=== PATIENT | male | born 1945 | race Caucasian/White ===

== ENCOUNTER → 2016-12-29 | Outpatient (CLI) | payer BC ==
[~2016-12-29] MED LIST: ALL300 PO; DOXA1TAB86 PO; LANS30CA63 PO; LSN20 PO; LSN40 PO; SIMV-151 PO; VGR50 PO
[2016-12-29 12:29] LABS: BLOOD UREA NITROGEN 17 mg/dl (7-18); CARBON DIOXIDE 29 mmol/L (21-32); CHLORIDE 104 mmol/L (98-107); GLUCOSE 91 mg/dl (70-99); POTASSIUM 4.1 mmol/L (3.5-5.1); SODIUM 141 mmol/L (136-145)
[2016-12-29 13:01] LABS: ALKALINE PHOSPHATASE 54 U/L (45-117); HDL CHOLESTEROL 52 mg/dl
[2016-12-29 13:32] LABS: CHOLESTEROL/HDL RATIO 3.4; LDL CHOLESTEROL CALCULATED 101 mg/dl; VERY LOW DENSITY LIPOPROT CALC 24 mg/dl
[2016-12-29 13:34] LABS: ALB/GLOB RATIO 1.3 (0.9-2); AST/SGOT 23 U/L (15-37); TRIGLYCERIDES 119 mg/dl (0-150)
[2016-12-29 13:38] LABS: ALT/SGPT 32 U/L (12-78); BUN/CREATININE RATIO 17.1 (10-20); CALCIUM 9.4 mg/dl (8.5-10.1); CHOLESTEROL 172 mg/dl (0-200)
== END | disposition home or self-care (01) ==
LOC: C.LAB1850 09:48
PROVIDERS: ATTEND Internal Medicine Pulmonary Disease
DX: E78.5 Hyperlipidemia, unspecified (principal); I10 Essential (primary) hypertension; M10.9 Gout, unspecified; M15.9 Polyosteoarthritis, unspecified; K21.0 Gastro-esophageal reflux disease with esophagitis

== ENCOUNTER → 2017-02-17 | Day surgery (SDC) | payer BC ==
[2017-02-16 07:31] VITALS: Ht 175.3 cm; Wt 100.0 kg
[~2017-02-17] VITALS: Ht 175.3 cm; Wt 100.0 kg
[~2017-02-17] MED LIST changes: +LIDOCAINE HCL 2% 2 ML VIAL (20MG/ML) ONE; -LSN20 PO; +PROPOFOL IV EMULSION 10 MG/ML 20 ML VIAL IV ONE; +SODIUM CHLORIDE 0.9% 500ML 500 ML IV ONE
--- NOTE | 2017-02-17 10:53 | Endo History and Physical ---
History & Physical Date of Service: Feb 17, 2017. Chief Complaint: SCREENING FOR COLON CANCER Referring Physician: DR. MOJICA History of Present Illness 72 yo CM who presents for screening colonoscopy. Past Medical History Arthritis, Reflux, Hypertension Past Surgical History Hx Cardiac Surgery: No Hx Internal Defibrillator: No Hx Pacemaker: No Hx Abdominal Surgery: No Hx of Implantable Prosthesis: No Hx Post-Op Nausea and Vomiting: No Hx Cancer Surgery: No Hx Thoracic Surgery: No Hx Orthopedic: Yes (R/L KNEE ARTHROSCOPY, R/L PARTIAL KNEE REPLACEMENT R/L TKA) Hx Urinary Tract Surgery: No Family History None Social History Smoking Status: Never Smoker Hx Substance Use: No Hx Alcohol Use: Yes (A FEW DRINKS A DAY) Allergies Coded Allergies: Sulfa Drugs (Verified Allergy, Severe, RASH, HIVES,SWELLING, 02/17/17) RASH,HIVES,SWELLING Current Medications Reported Home Medications Medications Dose Route/Sig Max Daily Dose Days Date Category Lisinopril 40 Mg Tab 40 Mg PO QAM 02/16/17 Reported Viagra (Sildenafil Citrate) 50 Mg Tab 50 Mg PO UD 02/19/14 Reported Allopurinol 300 Mg Tab 300 Mg PO QAM 02/19/14 Reported Simvastatin 20 Mg Tab 20 Mg PO QAM 02/19/14 Reported Prevacid (Lansoprazole) 30 Mg Cap 30 Mg PO QAM 02/19/14 Reported Doxazosin Mesylate 4 Mg Tab 4 Mg PO QAM 02/19/14 Reported Vital Signs Weight (Kilograms): 100 Height (Feet): 5 Height (Inches): 9 Date Time Temp Pulse Resp B/P (MAP) Pulse Ox O2 Delivery O2 Flow Rate FiO2 02/17/17 10:16 36.5 58 18 191/74 (113) 96 Room Air Physical Exam General Appearance: WD/WN, no apparent distress Respiratory/Chest: Auscultation: breath sounds normal Cardiovascular: Heart Auscultation: RRR Abdomen: Bowel Sounds: normal Inspection & Palpation: soft, non-distended, no tenderness, guarding & rebound Assessment and Plan Assessment: 72 yo CM who presents for screening colonoscopy. Plan: Proceed with colonoscopy
--- NOTE | 2017-02-17 11:30 | GI REPORT ---
Procedure Date: 02/17/2017 11:03 AM THIS REPORT HAS BEEN AMENDED Addendum Number: 1 Addendum Date: 02/17/2017 12:05:36 PM No repeat colonoscopy secondary to patient's age and lack of adenomas. Procedure: Colonoscopy Indications: Screening for colorectal malignant neoplasm Medicines: Monitored Anesthesia Care Complications: No immediate complications. Estimated Blood Loss: Estimated blood loss: none. Procedure: Pre-Anesthesia Assessment: - Prior to the procedure, a History and Physical was performed, and patient medications and allergies were reviewed. The patient's tolerance of previous anesthesia was also reviewed. The risks and benefits of the procedure and the sedation options and risks were discussed with the patient. All questions were answered, and informed consent was obtained. Prior Anticoagulants: The patient has taken no previous anticoagulant or antiplatelet agents. ASA Grade Assessment: II - A patient with mild systemic disease. After reviewing the risks and benefits, the patient was deemed in satisfactory condition to undergo the procedure. After I obtained informed consent, the scope was passed under direct vision. Throughout the procedure, the patient's blood pressure, pulse, and oxygen saturations were monitored continuously. The scope was introduced through the anus and advanced to the terminal ileum. The colonoscopy was performed without difficulty. The patient tolerated the procedure well. The quality of the bowel preparation was good. The terminal ileum, ileocecal valve, appendiceal orifice, and rectum were photographed. Findings: Multiple small-mouthed diverticula were found in the sigmoid colon. Non-bleeding internal hemorrhoids were found during retroflexion. The hemorrhoids were small. Impression: - Diverticulosis in the sigmoid colon. - Non-bleeding internal hemorrhoids. - No specimens collected. Recommendation: - Resume previous diet. - Continue present medications. - Repeat colonoscopy in 10 years for surveillance. - Return to primary care physician as previously scheduled. Aman Mejia Ashu, 02/17/2017 11:29:47 AM This report has been signed electronically. Note Initiated On: 02/17/2017 11:03 AM I attest to the content of the Intraoperative Record and orders documented therein, exceptions below Aman Mejia Ashu, 02/17/2017 12:06:12 PM This report has been signed electronically.
[2017-02-17 12:00] VITALS: BP 145/65; PULSE 49; O2SAT 96
--- NOTE | 2017-02-17 12:10 | Discharge Instructions ---
Endoscopy Patient Instructions Date / Procedure(s) Performed Feb 17, 2017. Colonoscopy Allergy Information Coded Allergies: Sulfa Drugs (Verified Allergy, Severe, RASH, HIVES,SWELLING, 02/17/17) RASH,HIVES,SWELLING Discharge Date / Findings Feb 17, 2017. Diverticulosis Internal hemorrhoids Medication Instructions OK to resume all medications today as prescribed Reported Home Medications Medications Dose Route/Sig Max Daily Dose Days Date Category Lisinopril 40 Mg Tab 40 Mg PO QAM 02/16/17 Reported Viagra (Sildenafil Citrate) 50 Mg Tab 50 Mg PO UD 02/19/14 Reported Allopurinol 300 Mg Tab 300 Mg PO QAM 02/19/14 Reported Simvastatin 20 Mg Tab 20 Mg PO QAM 02/19/14 Reported Prevacid (Lansoprazole) 30 Mg Cap 30 Mg PO QAM 02/19/14 Reported Doxazosin Mesylate 4 Mg Tab 4 Mg PO QAM 02/19/14 Reported Provider Instructions Activity Restrictions - No exercising or heavy lifting for 24 hours. - Do not drink alcohol the day of the procedure. - Do not drive a car or operate machinery until the day after the procedure. - Do not make any important decisions or sign important papers in 24 hours after the procedure. Following Day: - Return to full activity which may include returning to work/school. Diet Start your diet with liquids and light foods (jello, soup, juice, toast). Then eat your usual diet if not nauseated. Treatment For Common After Affects For mild abdominal pain, bloating, or excessive gas: - Rest - Eat lightly - Lie on right side Follow-Up Information Follow-up with DR. MOJICA as scheduled Anesthesia Information What You Should Know You have had a procedure that required some medicine to reduce anxiety and discomfort. This treatment is called moderate sedation. After receiving the treatment, you may be sleepy, but you will be able to breathe on your own. The effects of the treatment may last for several hours. Follow these instructions along with Activity/Diet recommendations noted above: * Do NOT do anything where dizziness or clumsiness would be dangerous. * Rest quietly at home today, then you can be up and about tomorrow. * Have a responsible person stay with you the rest of today. * You may have had an I.V. today. If so, you may take the dressing off later today. Recommendations Call your doctor if: * Trouble breathing * Continuous vomiting for more than 24 hours * Temperature above 101 degrees * Severe abdominal pain or bloating * Pain not relieved by pain medicine ordered * There is increased drainage or redness from any incision * A large amount of rectal bleeding greater than 2-3 tablespoons. (If you had a polyp/s removed or have hemorrhoids, a small amount of blood - from the rectum is to be expected.) * You have any unanswered questions or concerns. IN THE EVENT OF A SERIOUS EMERGENCY, GO TO THE NEAREST EMERGENCY ROOM Your discharge instructions were prepared by provider Aman Wakefield. Patient Instructions Signature Page Elder Rodriguez Patient (or Guardian) Signature/Date: I have read and understand the instructions given to me by my caregivers. Caregiver/RN/Doctor Signature/Date: The above-named patient and/or guardian has received patient instructions on this date. + Original Patient Signature Page (only) stays with chart. Please make copy for patient.
--- NOTE | 2017-02-17 12:31 | Anesthesiology Progress Note ---
Anesthesia Post Op Note Date & Time Feb 17, 2017 at 12:30 Vital Signs Pain Intensity: 0 Vital Signs Past 12 Hours Date Time Temp Pulse Resp B/P (MAP) Pulse Ox O2 Delivery O2 Flow Rate FiO2 02/17/17 12:00 49 18 145/65 (91) 96 Room Air 02/17/17 11:45 50 18 126/62 (83) 96 Room Air 02/17/17 11:35 50 18 96/47 (63) 96 Room Air 02/17/17 11:28 58 18 95/47 (63) 96 Room Air 02/17/17 10:16 36.5 58 18 191/74 (113) 96 Room Air Notes Mental Status: alert / awake / arousable, participated in evaluation Pt Amnestic to Procedure: Yes Nausea / Vomiting: adequately controlled Pain: adequately controlled Airway Patency, RR, SpO2: stable & adequate BP & HR: stable & adequate Hydration State: stable & adequate Anesthetic Complications: no major complications apparent
== END | disposition home or self-care (01) ==
LOC: C.GI 09:59
PROVIDERS: ATTEND Internal Medicine
DX: Z12.11 Encounter for screening for malignant neoplasm of colon (principal); K57.30 Diverticulosis of large intestine without perforation or abscess without bleeding; K64.8 Other hemorrhoids; I10 Essential (primary) hypertension; K21.9 Gastro-esophageal reflux disease without esophagitis; M19.90 Unspecified osteoarthritis, unspecified site; Z79.899 Other long term (current) drug therapy

== ENCOUNTER → 2017-07-01 | Outpatient (CLI) | payer BC ==
[~2017-07-01] MED LIST changes: -LIDOCAINE HCL 2% 2 ML VIAL (20MG/ML) ONE; -PROPOFOL IV EMULSION 10 MG/ML 20 ML VIAL IV ONE; -SODIUM CHLORIDE 0.9% 500ML 500 ML IV ONE
[2017-07-01 09:34] LABS: BASO % 0.2 %; BASO ABS # 0.01 K/uL (0-0.2); COMPLETE YES; EOS % 3.6 %; HEMATOCRIT 42.9 % (42-52); IG% 0.3 %; LYMPH ABS # 1.41 K/uL (1.2-3.4); MEAN CELL VOLUME 95.1 fL (80-100); MEAN CORPUSCULAR HEMOGLOBIN 31.9 pg (25-34); MEAN CORPUSCULAR HGB CONC 33.6 g/dl (32-36); MEAN PLATELET VOLUME 11.1 fL (7.4-10.4); NEUT % 65.9 %; PLATELET COUNT 154 K/uL (130-400); RED BLOOD COUNT 4.51 M/uL (4.7-6.1); WHITE BLOOD COUNT 6.41 K/uL (4.8-10.8)
[2017-07-01 10:10] LABS: ALT/SGPT 32 U/L (12-78); AST/SGOT 22 U/L (15-37); BLOOD UREA NITROGEN 17 mg/dl (7-18); BUN/CREATININE RATIO 17.4 (10-20); CALCIUM 9.2 mg/dl (8.5-10.1); CARBON DIOXIDE 29 mmol/L (21-32); CHLORIDE 104 mmol/L (98-107); CREATININE 0.95 mg/dl (0.60-1.40); GLUCOSE 91 mg/dl (70-99); POTASSIUM 3.9 mmol/L (3.5-5.1); SODIUM 137 mmol/L (136-145)
[2017-07-01 10:21] LABS: ALB/GLOB RATIO 1.2 (0.9-2); ALKALINE PHOSPHATASE 60 U/L (45-117); CHOLESTEROL 175 mg/dl (0-200); CHOLESTEROL/HDL RATIO 3.2; HDL CHOLESTEROL 54 mg/dl; LDL CHOLESTEROL CALCULATED 91 mg/dl; TRIGLYCERIDES 149 mg/dl (0-150); VERY LOW DENSITY LIPOPROT CALC 30 mg/dl
== END | disposition home or self-care (01) ==
LOC: C.LAB1850 08:47
PROVIDERS: ATTEND Internal Medicine Pulmonary Disease
DX: E78.5 Hyperlipidemia, unspecified (principal); I10 Essential (primary) hypertension; M10.9 Gout, unspecified; K43.9 Ventral hernia without obstruction or gangrene; N52.9 Male erectile dysfunction, unspecified

== ENCOUNTER → 2017-12-29 | Outpatient (CLI) | payer BC ==
[2017-12-29 09:52] LABS: ALBUMIN 3.9 gm/dl (3.4-5.0); ALT/SGPT 27 U/L (12-78); AST/SGOT 22 U/L (15-37); BLOOD UREA NITROGEN 21 mg/dl (7-18); CALCIUM 9.1 mg/dl (8.5-10.1); CARBON DIOXIDE 29 mmol/L (21-32); CHOLESTEROL 156 mg/dl (0-200); CREATININE 0.96 mg/dl (0.60-1.40); GLUCOSE 96 mg/dl (70-99); POTASSIUM 3.9 mmol/L (3.5-5.1); SODIUM 138 mmol/L (136-145)
[2017-12-29 09:53] LABS: ALKALINE PHOSPHATASE 61 U/L (45-117); LDL CHOLESTEROL CALCULATED 81 mg/dl; TOTAL PROTEIN 6.9 gm/dl (6.4-8.2)
== END | disposition home or self-care (01) ==
LOC: C.LAB1850 07:32
PROVIDERS: ATTEND Internal Medicine Pulmonary Disease
DX: E78.5 Hyperlipidemia, unspecified (principal); I10 Essential (primary) hypertension; K21.0 Gastro-esophageal reflux disease with esophagitis; R05 Cough; J30.9 Allergic rhinitis, unspecified

== ENCOUNTER 2021-07-30 07:38 | Inpatient (IN) ==
--- NOTE | 2021-07-30 07:50 | Emergency Department Note ---
Impression & Plan Congestive heart failure, New onset left bundle branch block (LBBB) ED Provider Note CHIEF COMPLAINT: Shortness of breath HISTORY OF PRESENT ILLNESS: This 76-year-old male patient presents to the emergency department with complaints of shortness of breath that began suddenly around 9 PM last night when he was watching football game. Patient states he had a sudden onset of aggressive coughing that precluded him from lying down. He had significant difficulty coughing and could not get it under control. Patient did actually end up having a syncopal episode, but denies injuring himself. He denies any chest pain or palpitations prior to the episode. Patient denies any fevers, chills, chest pain. He has had no nausea or vomiting. He is vaccinated against Covid. He states his legs have been swelling recently. Patient states his years ago. He has been suffering from recurrent and chronic left knee pain for which she has had multiple surgeries. He states he has gained 25 pounds due to inability to exercise. REVIEW OF SYSTEMS: A review of systems was performed with positives and pertinent negatives listed in the history of present illness. 10 systems were reviewed and are otherwise negative. ALLERGIES: see below MEDICATIONS: see below PMH: see below SOCIAL HISTORY: see below DDx: Reactive airway disease, pneumonia, pneumothorax, COPD, CHF, infections, cardiac ischemia, pulmonary embolism, musculoskeletal, gastrointestinal, as well as other pathologies. PHYSICAL EXAM: Vital signs reviewed. General: Older appearing 76-year-old male in no significant distress. HEENT: No scleral icterus, PERRLA, neck supple. Atraumatic. Cardiovascular: Bradycardic rate and rhythm, no extra sounds. Distant heart tones Pulmonary: Clear to auscultation bilaterally, normal work of breathing sitting up in bed Abdomen: Soft, obese, nontender, nondistended, positive bowel sounds. Musculoskeletal: Atraumatic, moderate 1-2+ pitting peripheral edema. Neurologic: Patient awake alert and oriented x 3, speech is clear Skin: Warm, dry, no rash EMERGENCY DEPARTMENT COURSE/MDM: This patient was evaluated and appeared to be in no significant distress. IV access was obtained and laboratory work was drawn. The patient was placed on director of cardiac cath lab and noted to be in a sinus bradycardia. EKG reveals a left bundle branch block and most recent previous on record was in 2018. Left bundle branch block is new. Troponin is detectable but within normal limits. Chest x-ray is concerning for congestive heart failure. Patient's magnesium was repleted with 2 g of IV magnesium sulfate. He was given 40 mg of IV Lasix and the case was discussed with the hospitalist service for admission and further management. Patient was aware of plan and agreed. MONITORING: An order for cardiac monitoring was placed and the patient is noted to be in a bradycardic rhythm at 53 beats per minute. RADIOLOGY: see below EKG: Sinus bradycardia with a first-degree AV block at 58 bpm. Left axis deviation, left bundle branch block. Prolonged QTC of 490. 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, left Trochanteric bursitis Ulcer of esophagus with bleeding Surgical History H/O colonoscopy (~01/2017) History of bilateral knee replacement Hx of total knee arthroplasty S/P tonsillectomy Family History Family/Other Coronary heart disease Mother Hearing loss Hypertension Cancer Father Cardiac disorder Hypertension Social History Smoking Status: Former smoker Hx Alcohol Use: Yes Alcohol type: beer, wine and hard liquor Hx Substance Use: No Preferred Language: Luxembourger Communication Ability: Effective Psychology Assistant Required: No Beliefs That Will Affect Care: None marital status: / Current Living Situation: Alone current occupational status: retired How many Children do You have: 2 Feels Safe at Home: Yes Assistive Devices: Glasses Allergies Allergies Allergy/AdvReac Type Severity Reaction Status Date / Time Sulfa (Sulfonamide Allergy Severe RASH, Verified 07/30/21 09:06 Antibiotics) HIVES,SWELLING Home Meds Previous Rx's Medication Instructions Recorded allopurinol 300 mg tablet 300 mg PO DAILY #90 tab 07/15/21 doxazosin 4 mg tablet 4 mg PO DAILY #90 tab 07/15/21 lansoprazole 30 mg capsule,delayed 30 mg PO DAILY #90 cap 07/15/21 release olmesartan 40 mg tablet (Benicar) 40 mg PO DAILY #90 tab 07/15/21 simvastatin 20 mg tablet 20 mg PO DAILY #90 tab 07/15/21 furosemide 40 mg tablet (Lasix) 40 mg PO DAILY #30 tab 07/31/21 potassium chloride 10 mEq 10 meq PO DAILY #30 cap 07/31/21 capsule,extended release Results & Data (ED) Vital Signs Vital Signs - 24 hr 07/30/21 07:39 Temperature 37.7 C H Temperature Source Skin Pulse Rate 84 Respiratory Rate 20 Blood Pressure 186/81 H Blood Pressure Mean 116 Pulse Oximetry 91 Oxygen Delivery Method Room Air Sepsis Recent Fever Within 48 Hours No Sepsis New/Unexplained Change in Mental Status No Sepsis Action Taken by Nursing No Action Required Home Medications Current Medication List: was personally reviewed by me Laboratory Data Attestation: I reviewed the patient's lab results. Result diagrams: 07/31/21 06:26 07/31/21 06:26 Lab Results 07/30/21 07/30/21 07/30/21 Range/Units 08:55 08:55 08:55 WBC 9.47 (4.8-10.8) K/uL RBC 4.58 L (4.7-6.1) M/uL Hgb 14.3 (14.0-18.0) g/dL Hct 42.7 (42-52) % MCV 93.2 (80-100) fL MCH 31.2 (25-34) pg MCHC 33.5 (32-36) g/dL RDW Std Deviation 45.6 (36.4-46.3) fL RDW Coeff of Jeana 13.5 (11.5-14.5) % Plt Count 129 L (130-400) K/uL MPV 12.1 H (7.4-10.4) fL Immature Gran % (Auto) 0.2 % Neut % (Auto) 81.5 % Lymph % (Auto) 7.4 % [place] % (Auto) 10.3 % Eos % (Auto) 0.5 % Baso % (Auto) 0.1 % Neut # (Auto) 7.71 H (1.4-6.5) K/uL Lymph # (Auto) 0.70 L (1.2-3.4) K/uL [place] # (Auto) 0.98 H (0.11-0.59) K/uL Eos # (Auto) 0.05 (0-0.5) K/uL Baso # (Auto) 0.01 (0-0.2) K/uL Immature Gran # (Auto) 0.02 (0.00-0.02) K/uL Sodium 139 (136-145) mmol/L Potassium 3.6 (3.5-5.1) mmol/L Chloride 107 (98-107) mmol/L Carbon Dioxide 23 (21-32) mmol/L Anion Gap 9.0 (3-11) BUN 15 (7-18) mg/dl Creatinine 0.86 (0.6-1.4) mg/dl Est Cr Clr Drug Dosing Not Reportable Est GFR ( Amer) 96.9 ml/min Est GFR (Non-Af Amer) 83.6 ml/min BUN/Creatinine Ratio 17.0 (10-20) Glucose 112 H (70-99) mg/dl Lactate 1.4 (0.4-2.0) mmol/L Calcium 8.6 (8.5-10.1) mg/dl Magnesium 1.6 L (1.8-2.4) mg/dl Total Bilirubin 1.5 H (0.2-1) mg/dl AST 17 (15-37) U/L ALT 24 (12-78) Alkaline Phosphatase 67 (45-117) U/L Troponin I 0.028 (0-0.045) ng/ml Total Protein 6.8 (6.4-8.2) gm/dl Albumin 3.6 (3.4-5.0) gm/dl Globulin 3.2 (2.5-4.0) gm/dl Albumin/Globulin Ratio 1.1 (0.9-2) Urine Color Urine Appearance (Clear) Urine pH (4.5-7.5) Ur Specific [place] (1.000-1.030) Urine Protein (Negative) Urine Glucose (UA) (Negative) Urine Ketones (Negative) Urine Blood (Negative) Urine Nitrite (Negative) Urine Bilirubin (Negative) Urine Urobilinogen (Negative) Ur Leukocyte Esterase (Negative) Urine WBC (Auto) (0-5) /hpf Urine RBC (Auto) (0-4) /hpf U Hyaline Cast (Auto) (0-5) /lpf U Epithel Cells (Auto) (0-5) /lpf Urine Bacteria (Auto) (Negative) 07/30/21 Range/Units 08:58 WBC (4.8-10.8) K/uL RBC (4.7-6.1) M/uL Hgb (14.0-18.0) g/dL Hct (42-52) % MCV (80-100) fL MCH (25-34) pg MCHC (32-36) g/dL RDW Std Deviation (36.4-46.3) fL RDW Coeff of Jeana (11.5-14.5) % Plt Count (130-400) K/uL MPV (7.4-10.4) fL Immature Gran % (Auto) % Neut % (Auto) % Lymph % (Auto) % [place] % (Auto) % Eos % (Auto) % Baso % (Auto) % Neut # (Auto) (1.4-6.5) K/uL Lymph # (Auto) (1.2-3.4) K/uL [place] # (Auto) (0.11-0.59) K/uL Eos # (Auto) (0-0.5) K/uL Baso # (Auto) (0-0.2) K/uL Immature Gran # (Auto) (0.00-0.02) K/uL Sodium (136-145) mmol/L Potassium (3.5-5.1) mmol/L Chloride (98-107) mmol/L Carbon Dioxide (21-32) mmol/L Anion Gap (3-11) BUN (7-18) mg/dl Creatinine (0.6-1.4) mg/dl Est Cr Clr Drug Dosing Est GFR ( Amer) ml/min Est GFR (Non-Af Amer) ml/min BUN/Creatinine Ratio (10-20) Glucose (70-99) mg/dl Lactate (0.4-2.0) mmol/L Calcium (8.5-10.1) mg/dl Magnesium (1.8-2.4) mg/dl Total Bilirubin (0.2-1) mg/dl AST (15-37) U/L ALT (12-78) Alkaline Phosphatase (45-117) U/L Troponin I (0-0.045) ng/ml Total Protein (6.4-8.2) gm/dl Albumin (3.4-5.0) gm/dl Globulin (2.5-4.0) gm/dl Albumin/Globulin Ratio (0.9-2) Urine Color Yellow Urine Appearance Clear (Clear) Urine pH 5.0 (4.5-7.5) Ur Specific [place] 1.020 (1.000-1.030) Urine Protein 2+ H (Negative) Urine Glucose (UA) Negative (Negative) Urine Ketones Negative (Negative) Urine Blood Negative (Negative) Urine Nitrite Negative (Negative) Urine Bilirubin Negative (Negative) Urine Urobilinogen Negative (Negative) Ur Leukocyte Esterase Negative (Negative) Urine WBC (Auto) 0 (0-5) /hpf Urine RBC (Auto) 0-4 (0-4) /hpf U Hyaline Cast (Auto) 0 (0-5) /lpf U Epithel Cells (Auto) 0-5 (0-5) /lpf Urine Bacteria (Auto) Negative (Negative) Administered Medications Discontinued Medications Allopurinol (Allopurinol 300 Mg Tab) 300 mg PO DAILY [facility] Stop: 08/30/21 08:59 Last Admin: 08/01/21 09:56 Dose: 300 mg Documented by: [id number] Admin: 07/31/21 08:02 Dose: 300 mg Documented by: [id number] Aspirin (Aspirin 81 Mg Chew) 81 mg PO DAILY [facility] Stop: 08/29/21 13:59 Last Admin: 07/30/21 15:22 Dose: 81 mg Documented by: [id number] Aspirin (Aspirin 81 Mg Ectab) 81 mg PO QAM [facility] Stop: 08/30/21 08:59 Last Admin: 08/01/21 09:56 Dose: 81 mg Documented by: [id number] Admin: 07/31/21 08:02 Dose: 81 mg Documented by: [id number] Carvedilol (Carvedilol 3.125 Mg Tab) 3.125 mg PO BID [facility] Stop: 08/29/21 20:59 Last Admin: 07/31/21 20:30 Dose: Not Given Documented by: [id number] Admin: 07/31/21 08:02 Dose: 3.125 mg Documented by: [id number] Admin: 07/30/21 20:30 Dose: 3.125 mg Documented by: [id number] Doxazosin Mesylate (Doxazosin Mesylate 4 Mg Tab) 4 mg PO DAILY [facility] Stop: 08/30/21 08:59 Last Admin: 08/01/21 09:55 Dose: 4 mg Documented by: [id number] Admin: 07/31/21 08:02 Dose: 4 mg Documented by: [id number] Enoxaparin Sodium (Enoxaparin Inj 40 Mg/0.4 Ml Syr) 40 mg SQ QPM [facility] Stop: 08/29/21 20:59 Last Admin: 07/31/21 20:30 Dose: 40 mg Documented by: [id number] Admin: 07/30/21 20:30 Dose: 40 mg Documented by: [id number] Furosemide (Furosemide 40 Mg/4 Ml Vial) 40 mg IV ONE ONE Stop: 07/30/21 11:17 Last Admin: 07/30/21 11:55 Dose: 40 mg Documented by: [id number] Furosemide (Furosemide 40 Mg/4 Ml Vial) 40 mg IV [id number] [facility] Stop: 08/29/21 16:59 Last Admin: 08/01/21 09:55 Dose: 40 mg Documented by: [id number] Admin: 07/31/21 17:54 Dose: 40 mg Documented by: [id number] Admin: 07/31/21 08:03 Dose: 40 mg Documented by: [id number] Admin: 07/30/21 17:27 Dose: 40 mg Documented by: [id number] Hydrochlorothiazide (Hydrochlorothiazide 25 Mg Tab) 25 mg PO QAM [facility] Stop: 08/31/21 08:59 Last Admin: 08/01/21 09:55 Dose: 25 mg Documented by: [id number] Magnesium Sulfate/Dextrose (Magnesium Sulfate / D5w) 1 gm in 100 mls @ 100 mls/hr IV Q1H [facility] Stop: 07/30/21 12:09 Last Infusion: 07/30/21 12:55 Dose: 0 mls/hr Documented by: [id number] Admin: 07/30/21 11:55 Dose: 100 mls/hr Documented by: [id number] Infusion: 07/30/21 11:45 Dose: 100 mls/hr Documented by: [id number] Admin: 07/30/21 10:45 Dose: 100 mls/hr Documented by: [id number] Ioversol (Optiray 320 125ml) 120 ml IV ONCE ONE Stop: 07/30/21 10:17 Last Admin: 07/30/21 10:10 Dose: 120 ml Documented by: [id number] Menthol (Cough Drop (Sugar Free) Len 24 Len/1 Box) 1 len BUCCAL NOW STA Stop: 07/31/21 17:49 Last Admin: 07/31/21 17:54 Dose: 1 len Documented by: [id number] Olmesartan (Olmesartan Medoxomil 40 Mg Tab) 40 mg PO DAILY [facility] Stop: 08/30/21 08:59 Last Admin: 08/01/21 09:55 Dose: 40 mg Documented by: [id number] Admin: 07/31/21 08:03 Dose: 40 mg Documented by: [id number] Pantoprazole Sodium (Pantoprazole 40 Mg Tab) 40 mg PO DAILY [facility]; Protocol Stop: 08/30/21 08:59 Last Admin: 08/01/21 09:54 Dose: 40 mg Documented by: [id number] Admin: 07/31/21 08:02 Dose: 40 mg Documented by: [id number] Simvastatin (Simvastatin 20 Mg Tab) 20 mg PO DAILY [facility] Stop: 08/30/21 08:59 Last Admin: 08/01/21 09:54 Dose: 20 mg Documented by: [id number] Admin: 07/31/21 08:01 Dose: 20 mg Documented by: [id number] Imaging Data Radiologist's Impression: Chest X-Ray 07/30/21 08:06 XR chest 1V portable CLINICAL HISTORY: Dyspnea. COMPARISON STUDY: 01/16/2018 TECHNIQUE: 1 view of the chest FINDINGS: Single frontal view of the chest demonstrates the cardiomediastinal silhouette to be within normal limits. Patchy interstitial and alveolar opacities are present bilaterally. The findings are most characteristic of a viral type pneumonitis. Covid 19 pneumonia should be excluded. There is also blunting left costophrenic angle characteristic of a small left pleural effusion. There is no evidence for vascular congestion. There is no acute osseous pathology. IMPRESSION: Patchy interstitial and alveolar opacities bilaterally characteristic of a viral type pneumonitis and probable early Covid 19 pneumonia. There is also evidence for small left pleural effusion. ACT 112: Negative or not required by law. Electronically signed by: Cliff Thomas M.D. 07/30/2021 8:28 AM Chest CTA 07/30/21 09:05 CT angio chest PE protocol CT DOSE: 722.77 mGy.cm HISTORY: 76 years-old Male with PE- syncope. Acute cough with shortness of breath TECHNIQUE: Multiple CTA images of the chest were obtained after the intravenous administration of 120 ml Optiray. Coronal and sagittal MIPS were obtained from the axial data set and were submitted for review. All measurements were obtained according to NASCET criteria. A dose lowering technique was utilized adhering to the principles of ALARA. COMPARISON: Chest radiograph of same day FINDINGS: CTA: Moderate cardiomegaly. No pericardial effusion. Extensive coronary artery calcifications. Moderate atherosclerosis of the thoracic aorta without aneurysm or dissection. Patency of the imaged great vessels. Slightly dilated main pulmonary artery measures 3.8 cm which may represent pulmonary artery hypertension. The segmental and subsegmental pulmonary arterial branches are suboptimally evaluated secondary to respiratory motion artifact and contrast bolus timing. CT CHEST: No thyroid nodule. Mild mediastinal and hilar adenopathy with lymph nodes roxanna uring up to 10 mm. Small pleural effusions. Respiratory motion artifact limits evaluation of the lungs. Intralobular septal thickening with mild intermixed groundglass opacities suggestive of atelectasis. Mild bilateral bronchial wall thickening. The central airways are patent. No acute process of the imaged upper abdomen. Hepatic steatosis. The spleen appears mildly enlarged. Unremarkable soft tissues. Degenerative changes of the shoulders and spine. Atrophy of the right greater than left rotator cuff musculature. IMPRESSION: 1. No pulmonary emboli. 2. Cardiomegaly with pulmonary edema and small layering pleural effusions. 3. Mild bibasilar groundglass densities suggest atelectasis. 4. Suggested pulmonary artery hypertension. 5. Mild mediastinal and hilar adenopathy is likely reactive. ACT 112: Negative or not required by law. The above report was generated using voice recognition software. It may contain grammatical, syntax or spelling errors. Electronically signed by: Keshav Gordon M.D. 07/30/2021 10:24 AM Blood Pressure Blood Pressure Findings: Elevated blood pressure Blood Pressure Disposition: further management by hospitalist Discharge Plan Visit Data Chief Complaint: Respiratory Problems Stated Complaint: HAVING HARD TIME BREATHING/COUGH/PASSED OUT ED Provider: Natty Long Discharge Problem: Congestive heart failure, New onset left bundle branch block (LBBB) Patient Disposition: Admitted As Inpatient Discharge Instructions Interventions: ED Discharge Assessment Last Done: 07/30/21 12:50 Discharge Problem: Congestive heart failure Qualifiers: Heart failure type: unspecified Heart failure chronicity: acute on chronic Qualified Code(s): I50.9 - Heart failure, unspecified
--- NOTE | 2021-07-30 08:30 | XRay Report ---
XR chest 1V portable CLINICAL HISTORY: Dyspnea. COMPARISON STUDY: 01/16/2018 TECHNIQUE: 1 view of the chest FINDINGS: Single frontal view of the chest demonstrates the cardiomediastinal silhouette to be within normal li mits. Patchy interstitial and alveolar opacities are present bilaterally. The findings are most tasneem cteristic of a viral type pneumonitis. Covid 19 pneumonia should be excluded. There is also blunting left costophrenic angle characteristic of a small left pleural effusion. There is no evidence for vas cular congestion. There is no acute osseous pathology. IMPRESSION: Patchy interstitial and alveolar opacities bilaterally characteristic of a viral type pne umonitis and probable early Covid 19 pneumonia. There is also evidence for small left pleural effusio n. ACT 112: Negative or not required by law. Electronically signed by: Cliff Thomas M.D. 07/30/2021 8:28 AM
[2021-07-30 09:05] LABS: Influenza A virus by PCR Negative (Neg); Influenza B virus by PCR Negative (Neg); RSV by PCR Negative (Neg); SARS CoV2 RNA(COVID-19) InHosp NEGATIVE (Negative)
[2021-07-30 09:26] LABS: Appearance Urine Clear (Clear); Bacteria Urine Automated Negative (Negative); Bilirubin Urine Negative (Negative); Blood Urine Negative (Negative); Cast Urine Automated 0 /lpf (0-5); Color Urine Yellow; Epithelial Cell Urine Auto 0-5 /lpf (0-5); Glucose Urine UA Negative (Negative); Ketones Urine Negative (Negative); Leukocyte Esterase Urine Negative (Negative); Nitrite Urine Negative (Negative); Protein Urine 2+ (Negative); RBC Urine Automated 0-4 /hpf (0-4); Urobilinogen Urine Negative (Negative); WBC Urine Automated 0 /hpf (0-5)
[2021-07-30 09:40] LABS: Alanine Aminotransferase 24 (12-78); Albumin Level 3.6 gm/dl (3.4-5.0); Aspartate Aminotransferase 17 U/L (15-37); Blood Urea Nitrogen 15 mg/dl (7-18); Calcium 8.6 mg/dl (8.5-10.1); Carbon Dioxide 23 mmol/L (21-32); Chloride 107 mmol/L (98-107); Est GFR (African American) 96.9 ml/min; Est GFR (Non-African American) 83.6 ml/min; Glucose 112 mg/dl (70-99); Magnesium 1.6 mg/dl (1.8-2.4); Potassium 3.6 mmol/L (3.5-5.1); Sodium 139 mmol/L (136-145)
[2021-07-30 09:45] LABS: Albumin Globulin Ratio 1.1 (0.9-2); Alkaline Phosphatase 67 U/L (45-117); Bilirubin,Total 1.5 mg/dl (0.2-1); Globulin 3.2 gm/dl (2.5-4.0); Total Protein 6.8 gm/dl (6.4-8.2); Troponin I 0.028 ng/ml (0-0.045)
[2021-07-30] MEDS ORDERED: OPTIRAY 320 125ml IV ONE (10:16)
--- NOTE | 2021-07-30 10:26 | CT Scan Report ---
CT angio chest PE protocol CT DOSE: 722.77 mGy.cm HISTORY: 76 years-old Male with PE- syncope. Acute cough with shortness of breath TECHNIQUE: Multiple CTA images of the chest were obtained after the intravenous administration of 120 ml Optiray. Coronal and sagittal MIPS were obtained from the axial data set and were submitted for review. All measurements were obtained according to NASCET criteria. A dose lowering technique was u tilized adhering to the principles of ALARA. COMPARISON: Chest radiograph of same day FINDINGS: CTA: Moderate cardiomegaly. No pericardial effusion. Extensive coronary artery calcifications. Moderate at herosclerosis of the thoracic aorta without aneurysm or dissection. Patency of the imaged great vesse ls. Slightly dilated main pulmonary artery measures 3.8 cm which may represent pulmonary artery hyper tension. The segmental and subsegmental pulmonary arterial branches are suboptimally evaluated second kevin to respiratory motion artifact and contrast bolus timing. CT CHEST: No thyroid nodule. Mild mediastinal and hilar adenopathy with lymph nodes measuring up to 10 mm. Smal l pleural effusions. Respiratory motion artifact limits evaluation of the lungs. Intralobular septal thickening with mild intermixed groundglass opacities suggestive of atelectasis. Mild bilateral bronc hial wall thickening. The central airways are patent. No acute process of the imaged upper abdomen. Hepatic steatosis. The spleen appears mildly enlarged. Unremarkable soft tissues. Degenerative changes of the shoulders and spine. Atrophy of the right grea ter than left rotator cuff musculature. IMPRESSION: 1. No pulmonary emboli. 2. Cardiomegaly with pulmonary edema and small layering pleural effusions. 3. Mild bibasilar groundglass densities suggest atelectasis. 4. Suggested pulmonary artery hypertension. 5. Mild mediastinal and hilar adenopathy is likely reactive. ACT 112: Negative or not required by law. The above report was generated using voice recognition software. It may contain grammatical, syntax o r spelling errors. Electronically signed by: Keshav Gordon M.D. 07/30/2021 10:24 AM
--- NOTE | 2021-07-30 10:34 | Electrocardiogram Report ---
Test Reason : Blood Pressure : / mmHG Vent. Rate : 074 BPM Atrial Rate : 074 BPM P-R Int : 226 ms QRS Dur : 154 ms QT Int : 434 ms P-R-T Axes : 029 -45 108 degrees QTc Int : 481 ms Sinus rhythm with 1st degree A-V block with occasional Premature ventricular complexes Left bundle branch block Abnormal ECG When compared with ECG of 16-JAN-2018 19:06, Premature ventricular complexes are now Present Left bundle branch block is now Present Confirmed by Alfie Reveles ([id number]) on 07/30/2021 10:34:27 AM Referred By: Confirmed By:Alfie Reveles
[2021-07-30] MEDS: MAGNESIUM SULFATE / D5W 1 GM/100 ML BAG IV SCH ×2 (10:45→11:55)
[2021-07-30 10:53] LABS: Hematocrit (blood only) 42.7 % (42-52); Hemoglobin 14.3 g/dL (14.0-18.0); Mean Corpuscular Hemoglobin 31.2 pg (25-34); Mean Corpuscular Hgb Conc 33.5 g/dL (32-36); Mean Corpuscular Volume 93.2 fL (80-100); Mean Platelet Volume 12.1 fL (7.4-10.4); Platelet Count 129 K/uL (130-400); RDW Coefficient of Variation 13.5 % (11.5-14.5); RDW Standard Deviation 45.6 fL (36.4-46.3); Red Blood Count 4.58 M/uL (4.7-6.1); White Blood Count 9.47 K/uL (4.8-10.8)
[2021-07-30 11:07] LABS: Basophils # (auto) 0.01 K/uL (0-0.2); Basophils % (auto) 0.1 %; Eosinophils # (auto) 0.05 K/uL (0-0.5); Eosinophils % (auto) 0.5 %; Immature Granulocytes # (auto) 0.02 K/uL (0.00-0.02); Immature Granulocytes % (auto) 0.2 %; Lymphocytes % (auto) 7.4 %; Monocytes # (auto) 0.98 K/uL (0.11-0.59); Monocytes % (auto) 10.3 %; Neutrophils # (auto) 7.71 K/uL (1.4-6.5); Neutrophils % (auto) 81.5 %
[2021-07-30] MEDS ORDERED: FUROSEMIDE 40 MG/4 ML VIAL IV ONE (11:16)
--- NOTE | 2021-07-30 11:54 | History & Physical Report ---
Date of Service July 30, 2021 Assessment & Plan (1) Shortness of breath: Plan: Patient will be admitted to the hospital proceeding as follows: I suspect by the patient's clinical presentation, imaging, and labs that he is suffering from congestive heart failure: We will trend the patient's cardiac enzymes We will check an echocardiogram at this time. I discussed with the cardiopulmonary lab and they will perform this test within the next few minutes. Due to the patient's new left bundle branch block if there is a marked abnormality on his echocardiogram we will enlist the help of cardiology to determine if cardiac catheterization is needed I have counseled the patient on the importance of a low-sodium diet We will place the patient on antiplatelet therapy in the form of aspirin We will maintain the patient on his home dose of olmesartan 40 mg daily We will provide diuresis with Lasix 40 mg IV twice daily for the present time We will hold the patient's beta-vahid for the present time We will maintain him on statin therapy. He does take Zocor 20 mg daily We will utilize Lovenox and SCDs for DVT prevention I have discussed with the patient CODE STATUS and he notes in the event of cardiopulmonary rest he would not want mechanical ventilation or chest compressions performed. He also notes that in the event of respiratory deterioration he would not want mechanical ventilation use. He will therefore be a level 5 DO NOT RESUSCITATE Additional recommendations will be forthcoming based on pending studies and the patient's clinical course as it unfolds as well as recommendations by cardiology (2) Acute heart failure with preserved ejection fraction: (3) Obstructive sleep apnea: (4) Left bundle branch block: (5) HTN (hypertension): History of Present Illness Chief Complaint: Shortness of breath Primary Care Provider: Khoi Patel MD Is a 76-year-old male who presented to the emergency department secondary to shortness of breath. Patient says the shortness of breath began last night in the preceding several days he was feeling finally his normal self. Patient says he has had a slight cough but denies any fevers, shakes, chills. He does report orthopnea and clearly states that his breathing is improved when he sits upright. He has not exhibited any chest pain. He denies any abdominal pain but does have diarrhea. He denies any nausea or vomiting. He has not lost his sense of taste or smell. The patient notes that he has gained approximately 25 pounds over the past year and reports some worsening lower extremity edema. Patient also notes to some worsening dyspnea on exertion over the past several weeks most notably over the past 2 weeks. He says that previously he could walk easily 3 miles on a flat surface but has been unable to do so partly due to an arthritic knee but also due to shortness of breath. I question the patient out salt intake and he does admit to eating foods that contain high amount of salt. Patient is a remote smoker having quit in 1992 but he did smoke up to 1 to 2 packs of cigarettes per day for 43 years. Patient says that he did have a stress test that was reportedly okay without signs of ischemia in 2009 prior to undergoing a knee replacement. Patient does report he had a brother who suffered from coronary artery disease but this was diagnosed in his 70s. He also had a father who of a ruptured aneurysm. Patient does report that he has received his Covid vaccine and also received his Covid booster in June of this year. In the emergency department the patient did have labs and imaging which and family reviewed. A chest x-ray showed the patient had patchy interstitial infiltrates. He also underwent a CT scan of the chest that was negative for pulmonary emboli but the patient was noted to have cardiomegaly as well as pulmonary edema with small bilateral pleural effusions. Labs including CBC were white blood cell count, hemoglobin, hematocrit, were within the normal range. His platelet count was 129,000. Chemistry profile showed sodium, potassium, BUN, and creatinine were all within normal range. Patient did have a low magnesium level of 1.6. There were no significant elevation of LFTs other than a slight elevation of his total bilirubin at 1.5. Urinalysis was not indicative of infection. Patient did have serologies for RSV, influenza, and Covid checked which were all negative. An EKG was performed that showed a new left bundle branch block. The treating clinician emergency department has supplemented the patient's oxygen and had given some intravenous Lasix. At the time of interview the patient is resting comfortably in bed and he was in no distress or discomfort. Allergies Allergy/AdvReac Type Severity Reaction Status Date / Time Sulfa (Sulfonamide Allergy Severe RASH, Verified 07/30/21 09:06 Antibiotics) HIVES,SWELLING Home Medications Medication Instructions Recorded Confirmed Type allopurinol 300 mg tablet 300 mg PO DAILY #90 tab 07/15/21 07/30/21 Rx atenolol 25 mg tablet 25 mg PO DAILY #90 tab 07/15/21 07/30/21 Rx doxazosin 4 mg tablet 4 mg PO DAILY #90 tab 07/15/21 07/30/21 Rx lansoprazole 30 mg capsule,delayed 30 mg PO DAILY #90 cap 07/15/21 07/30/21 Rx release olmesartan 40 mg tablet (Benicar) 40 mg PO DAILY #90 tab 07/15/21 07/30/21 Rx simvastatin 20 mg tablet 20 mg PO DAILY #90 tab 07/15/21 07/30/21 Rx Past Med/Surg History Medical History Acute kidney injury Clostridium difficile infection Esophageal stricture Hemangioendothelioma of liver Olecranon bursitis Painful total knee replacement, left Trochanteric bursitis Ulcer of esophagus with bleeding Surgical History H/O colonoscopy (~01/2017) History of bilateral knee replacement Hx of total knee arthroplasty S/P tonsillectomy Family History Family/Other Coronary heart disease Mother Hearing loss Hypertension Cancer Father Cardiac disorder Hypertension Social History Smoking Status: Former smoker Hx Alcohol Use: Yes Alcohol type: beer, wine and hard liquor Hx Substance Use: No Preferred Language: Faroese Communication Ability: Effective Admeasurer Required: No Beliefs That Will Affect Care: None marital status: / Current Living Situation: Alone current occupational status: retired Other Information That Helps Us Care for You: No Feels Safe at Home: Yes Safety Concerns: Feels Safe At This Time Assistive Devices: Glasses Review of Systems Constitutional: no fever and no chills Eyes: no diplopia Ear, Nose, Mouth, Throat: no ear pain Respiratory: + cough, + dyspnea and + dyspnea on exertion Cardiovascular: + dyspnea on exertion and + orthopnea; no chest pain, no palpitations, no syncope and no claudication Gastrointestinal: + diarrhea/loose stools; no abdominal pain, no nausea and no vomiting Genitourinary: no dysuria Integumentary: no rash Neurologic: no localized weakness Physical Exam Constitutional: well developed and well nourished; no acute distress Eyes: PERRL, conjunctivae normal, anicteric sclerae ENMT: Ears: no hearing impairment and no external ear abnormality Neck: trachea midline Respiratory: Breath sounds are present bilaterally. There is no wheezing. Patient is to use accessory muscles. The patient did have faint crackles noted at the bases bilaterally. Cardiovascular: Rate/Rhythm: regular rate and regular rhythm 1-2+ lower extremity edema noted bilaterally Gastrointestinal (Abdomen): Soft, nontender, nondistended Musculoskeletal: No calf tenderness Skin: no rashes Neurologic: moves all extremities Psychiatric: A+Ox3, euthymic affect Results & Data Results & Data ([facility]) Vital Signs (Past 12 Hours) Vital Signs Temp Pulse Resp Resp Resp BP BP 07/30/21 10:32 37.3 C 114/71 07/30/21 10:29 07/30/21 08:55 28 H 20 07/30/21 07:39 37.7 C H 84 20 186/81 H Pulse Ox Pulse Ox Pulse Ox 07/30/21 10:32 93 07/30/21 10:29 93 07/30/21 08:55 88 L 92 07/30/21 07:39 91 Diagnostic Findings XR chest 1V portable CLINICAL HISTORY: Dyspnea. COMPARISON STUDY: 01/16/2018 TECHNIQUE: 1 view of the chest FINDINGS: Single frontal view of the chest demonstrates the cardiomediastinal silhouette to be within normal limits. Patchy interstitial and alveolar opacities are present bilaterally. The findings are most characteristic of a viral type pneumonitis. Covid 19 pneumonia should be excluded. There is also blunting left costophrenic angle characteristic of a small left pleural effusion. There is no evidence for vascular congestion. There is no acute osseous pathology. IMPRESSION: Patchy interstitial and alveolar opacities bilaterally characteristic of a viral type pneumonitis and probable early Covid 19 pneumonia. There is also evidence for small left pleural effusion. CT angio chest PE protocol CT DOSE: 722.77 mGy.cm HISTORY: 76 years-old Male with PE- syncope. Acute cough with shortness of breath TECHNIQUE: Multiple CTA images of the chest were obtained after the intravenous administration of 120 ml Optiray. Coronal and sagittal MIPS were obtained from the axial data set and were submitted for review. All measurements were obtained according to NASCET criteria. A dose lowering technique was utilized adhering to the principles of ALARA. COMPARISON: Chest radiograph of same day FINDINGS: CTA: Moderate cardiomegaly. No pericardial effusion. Extensive coronary artery ca lcifications. Moderate atherosclerosis of the thoracic aorta without aneurysm or dissection. Patency of the imaged great vessels. Slightly dilated main pulmonary artery measures 3.8 cm which may represent pulmonary artery hypertension. The segmental and subsegmental pulmonary arterial branches are suboptimally evaluated secondary to respiratory motion artifact and contrast bolus timing. CT CHEST: No thyroid nodule. Mild mediastinal and hilar adenopathy with lymph nodes measuring up to 10 mm. Small pleural effusions. Respiratory motion artifact limits evaluation of the lungs. Intralobular septal thickening with mild intermixed groundglass opacities suggestive of atelectasis. Mild bilateral bronchial wall thickening. The central airways are patent. No acute process of the imaged upper abdomen. Hepatic steatosis. The spleen appears mildly enlarged. Unremarkable soft tissues. Degenerative changes of the shoulders and spine. Atrophy of the right greater than left rotator cuff musculature. IMPRESSION: 1. No pulmonary emboli. 2. Cardiomegaly with pulmonary edema and small layering pleural effusions. 3. Mild bibasilar groundglass densities suggest atelectasis. 4. Suggested pulmonary artery hypertension. 5. Mild mediastinal and hilar adenopathy is likely reactive. Medications Administered ER Medications Given: Mg sulphate 2g IV Furosemide 40mg IV ECG Indication: SOB/dyspnea Rate (beats per minute): 74 Rhythm: normal sinus Findings: + 1st degree AV block, + LBBB and + PVC Comparison ECG Date: from (January 16, 2018) Change: the following changes noted (LBBB is new from 2018, although noted problem in EHR diagnosed in 2019) Code Status & VTE Plan VTE Prophylaxis Plan VTE Prophylaxis will be ordered: Yes Supervising Physician Co-Signing Physician Notes I personally saw and examined the patient. I verified all herrmann points and agree with GO Gutierrez with the following exceptions and/or additions: 76 yo male with progressively worsening shortness of breath and weight gain over many months. Patient seen on the chen after admission and already noticing improvement in his orthopnea, leg swelling and shortness of breath on exertion O/E No JVD, HS1+2, RRR, no murmurs, no respiratory distress, fine crackles bibasal, Abdo SNT, 1+ LE edema to knees equal b/l EKG - "new" LBBB compared to prior EKG in 2018, however LBBB is charted in EHR in 2019 therefore suspect this is not new and no new onset chest pain to be concerned about ACS A/P Acute heart failure with preserved ejection fraction - Lasix 40mg IV BID, TTE, consult cardiology, switch atenolol -> carvedilol tonight given elevated BP throughout the day, uptitrate as able. Continue on olmesartan. Discussed low salt diet in some detail which appears to be his main issue. Possible CAD - given LBBB in setting of acute CHF suspect some underlying CAD, Will defer ischemic imaging to cardiology but recommend starting a daily aspirin at this time PG Care Time/CCT Total # of Minutes Spent Total Time Spent with Patient: Total time spent is greater than 50% in coordination of care (as documented) at patient's floor/unit and/or counseling patient: Coding Level of Care Code 80021 Initial Inpt Care Lvl 3 Diagnoses Shortness of breath R06.02 Acute heart failure with preserved ejection fraction I50.31 Obstructive sleep apnea G47.33 Left bundle branch block I44.7 HTN (hypertension) I10
--- NOTE | 2021-07-30 13:03 | XCELERA ---
[id number] \\[id number]
[2021-07-30] MEDS ORDERED: ACETAMINOPHEN 325 MG TAB PO PRN (13:15)
[2021-07-30] MEDS ORDERED: ONDANSETRON INJ 2 MG/ML 2 ML VIAL IV PRN (13:15)
[2021-07-30] MEDS ORDERED: POLYETHYLENE (MIRALAX) 17 GM PACK PO PRN (13:15)
[2021-07-30] MEDS ORDERED: NITROGLYCERIN SL 0.4 MG/TAB TAB SL PRN (13:15)
[2021-07-30] MEDS ORDERED: MAGNESIUM HYDROXIDE SUSP 30 ML UDC PO PRN (13:15)
[2021-07-30] MEDS ORDERED: ALUMINUM/MAGNESIUM SUSP 30 ML UDC PO PRN (13:15)
[2021-07-30 13:34] LABS: Troponin I 0.033 ng/ml (0-0.045)
[2021-07-30] MEDS ORDERED: ASPIRIN 81 MG CHEW PO SCH (14:00)
--- NOTE | 2021-07-30 14:41 | Cardiology Consultation ---
Date of Consultation July 30, 2021 Assessment & Plan (1) Acute on chronic diastolic CHF (congestive heart failure): -echocardiogram notes normal systolic function with moderate LVH. -decompensation likely related to dietary indiscretion with salt. -agree with intravenous Lasix. -would continue diuretics until BUN and creatinine increase. -daily PRP. (2) Left bundle branch block: -new when compared with a tracing done in December 2017. -fortunately, echocardiogram notes normal systolic function. -will likely proceed with a Lexiscan stress test as an outpatient to rule out myocardial ischemia. (3) HTN (hypertension): -elevation likely related to decompensated CHF. (4) Dyslipidemia: -continue simvastatin. History of Present Illness Attending Physician: Sukumar Fallon MD History of Present Illness Mr. Moore is a 76-year-old male admitted earlier today in decompensated CHF. This consultation was ordered to assist in his cardiac management. The patient was in his usual state of health until 2-3 weeks prior to presentation. He began to note progressive exertional dyspnea along with lower extremity edema. Over the last 2 evenings, the patient noted significant orthopnea and had to sleep in a reclining chair. He began to note shortness of breath at rest, therefore, presented for further care. On arrival here, the patient's workup included a chest x-ray which noted card iomegaly and pulmonary edema. This was confirmed on his CT scan of the chest. His EKG noted sinus rhythm with a complete left bundle branch block. This was new when compared with a tracing done on January 16, 2018. The patient was given intravenous Lasix and is now experiencing a brisk diuresis. The patient was able to [place] approximately 2 weeks ago. At no time has he experienced exertional angina pectoris. He had a normal stress test approximately 10 years ago. The patient admits to poor compliance with a low-salt diet. He explains that he salts any meet prior to cooking at. He is also liberal with salt on most of his foods. The patient has received all of his COVID vaccinations. His medications reviewed in detail. Currently, patient is resting comfortably in bed without complaints. Past medical and surgical history 1. Hypertension 2. Moderate LVH 3. Mild mitral regurgitation 4. Hypercholesterolemia 5. Diastolic CHF-July 2021 6. GERD 7. Esophageal stricture 8. History of esophageal ulcer 9. Liver hemangioendothelioma 10. Diverticulitis 11. Obstructive sleep apnea 12. DJD 13. Bilateral TKR 14. Tonsillectomy Social history , lives alone Quit tobacco use in 1992, 43 pack year history Occasional alcohol Family history Father from ruptured abdominal aneurysm Review of systems A 10 review systems was negative except that described above. Allergies Allergy/AdvReac Type Severity Reaction Status Date / Time Sulfa (Sulfonamide Allergy Severe RASH, Verified 07/30/21 09:06 Antibiotics) HIVES,SWELLING Home Medications Medication Instructions Recorded Confirmed Type allopurinol 300 mg tablet 300 mg PO DAILY #90 tab 07/15/21 07/30/21 Rx atenolol 25 mg tablet 25 mg PO DAILY #90 tab 07/15/21 07/30/21 Rx doxazosin 4 mg tablet 4 mg PO DAILY #90 tab 07/15/21 07/30/21 Rx lansoprazole 30 mg capsule,delayed 30 mg PO DAILY #90 cap 07/15/21 07/30/21 Rx release olmesartan 40 mg tablet (Benicar) 40 mg PO DAILY #90 tab 07/15/21 07/30/21 Rx simvastatin 20 mg tablet 20 mg PO DAILY #90 tab 07/15/21 07/30/21 Rx Patient History Medical History Acute kidney injury Clostridium difficile infection Esophageal stricture Hemangioendothelioma of liver Olecranon bursitis Painful total knee replacement, left Trochanteric bursitis Ulcer of esophagus with bleeding Surgical History H/O colonoscopy (~01/2017) History of bilateral knee replacement Hx of total knee arthroplasty S/P tonsillectomy Family History Family/Other Coronary heart disease Mother Hearing loss Hypertension Cancer Father Cardiac disorder Hypertension Social History Smoking Status: Former smoker Hx Alcohol Use: Yes Alcohol type: beer, wine and hard liquor Hx Substance Use: No Preferred Language: Kyrgyz Communication Ability: Effective Remedial Reading Teacher Required: No Beliefs That Will Affect Care: None marital status: / Current Living Situation: Alone current occupational status: retired Other Information That Helps Us Care for You: No Feels Safe at Home: Yes Safety Concerns: Feels Safe At This Time Assistive Devices: Glasses Physical Exam Physical Exam: In general this is an obese white male in no acute distress. HEENT exam is negative. Neck is supple with full carotid upstrokes. There are no carotid bruits. Jugular venous pressure is flat at 90. There is no thyromegaly. Cardiovascular exam reveals a regular rhythm with a normal S1-S2. A prominent S4 is noted. No murmurs. Lungs are clear without rales, rhonchi, or wheezes. Abdomen is obese without bruits. Extremities reveal intact radial artery pulses bilaterally. Trace to 1+ pretibial edema is noted. Results & Data ([facility]) Vital Signs (Past 12 Hours) Vital Signs Temp Pulse Pulse Resp Resp Resp BP 07/30/21 13:16 37.1 C 67 24 07/30/21 12:50 184/89 H 07/30/21 11:58 68 18 07/30/21 10:32 37.3 C 07/30/21 10:29 07/30/21 08:55 28 H 20 07/30/21 07:39 37.7 C H 84 20 186/81 H BP Pulse Ox Pulse Ox Pulse Ox 07/30/21 13:16 181/80 H 92 07/30/21 12:50 93 07/30/21 11:58 190/92 H 94 07/30/21 10:32 114/71 93 07/30/21 10:29 93 07/30/21 08:55 88 L 92 07/30/21 07:39 91 Laboratory Results CBC notes hemoglobin 14.3, hematocrit 42.7, white count 9.47, and platelet count 535883. Electrolytes note a sodium of 139, potassium 3.6, chloride 107, bicarb 23, BUN 15, creatinine 0.86, and glucose of 112. Magnesium level is low at 1.6. Initial troponin was 0.028 with a follow-up value of 0.033. BNP is mildly elevated at 2675. Diagnostic Findings EKG notes normal sinus rhythm with first-degree AV block and a complete left bundle branch block. Chest x-ray notes cardiomegaly and pulmonary edema. Echocardiogram notes normal left ventricular systolic function with ejection fraction 55-60%. There is moderate LVH and mild mitral regurgitation. CT scan of the chest showed no pulmonary emboli but evidence of cardiomegaly and pulmonary edema. PG Care Time/CCT Total # of Minutes Spent Total Time Spent with Patient: Total time spent is greater than 50% in coordination of care (as documented) at patient's floor/unit and/or counseling patient: Coding Level of Care Code 76578 Initial Inpt Care Lvl 3 Diagnoses Acute on chronic diastolic CHF (congestive heart failure) I50.33 Left bundle branch block I44.7 HTN (hypertension) I10 Dyslipidemia E78.5
[2021-07-30] MEDS: FUROSEMIDE 40 MG/4 ML VIAL IV SCH (17:27)
[2021-07-30] MEDS: ENOXAPARIN INJ 40 MG/0.4 ML SYR SQ SCH (20:30)
[2021-07-30] MEDS: carvediloL 3.125 MG TAB PO SCH (20:30)
[2021-07-31 06:50] LABS: Basophils # (auto) 0.01 K/uL (0-0.2); Basophils % (auto) 0.1 %; Eosinophils # (auto) 0.14 K/uL (0-0.5); Eosinophils % (auto) 2.1 %; Hematocrit (blood only) 41.9 % (42-52); Hemoglobin 13.9 g/dL (14.0-18.0); Immature Granulocytes # (auto) 0.01 K/uL (0.00-0.02); Immature Granulocytes % (auto) 0.1 %; Lymphocytes # (auto) 1.09 K/uL (1.2-3.4); Lymphocytes % (auto) 16.1 %; Mean Corpuscular Hemoglobin 31.7 pg (25-34); Mean Corpuscular Hgb Conc 33.2 g/dL (32-36); Mean Corpuscular Volume 95.4 fL (80-100); Mean Platelet Volume 11.6 fL (7.4-10.4); Monocytes # (auto) 0.98 K/uL (0.11-0.59); Monocytes % (auto) 14.4 %; Neutrophils # (auto) 4.56 K/uL (1.4-6.5); Neutrophils % (auto) 67.2 %; Platelet Count 138 K/uL (130-400); RDW Coefficient of Variation 13.7 % (11.5-14.5); Red Blood Count 4.39 M/uL (4.7-6.1); White Blood Count 6.79 K/uL (4.8-10.8)
[2021-07-31 07:23] LABS: Calcium 9.2 mg/dl (8.5-10.1); Creatinine Clr Calc Pharmacy 64.8 ml/min; Est GFR (African American) 72.3 ml/min; Est GFR (Non-African American) 62.4 ml/min; Magnesium 2.3 mg/dl (1.8-2.4); Potassium 3.4 mmol/L (3.5-5.1)
[2021-07-31] MEDS: SIMVASTATIN 20 MG TAB PO SCH (08:01)
[2021-07-31] MEDS: PANTOprazole 40 MG TAB PO SCH (08:02)
[2021-07-31] MEDS: ASPIRIN 81 MG ECTAB PO SCH (08:02)
[2021-07-31] MEDS: allopurinoL 300 MG TAB PO SCH (08:02)
[2021-07-31] MEDS: DOXAZosin MESYLATE 4 MG TAB PO SCH (08:02)
[2021-07-31] MEDS: carvediloL 3.125 MG TAB PO SCH ×2 (08:02→20:30)
[2021-07-31] MEDS: FUROSEMIDE 40 MG/4 ML VIAL IV SCH ×2 (08:03→17:54)
[2021-07-31] MEDS: OLMESARTAN MEDOXOMIL 40 MG TAB PO SCH (08:03)
[2021-07-31] MEDS ORDERED: OLMESARTAN MEDOXOMIL 40 MG TAB PO SCH (09:00)
[2021-07-31] MEDS ORDERED: DOXAZosin MESYLATE 4 MG TAB PO SCH (09:00)
--- NOTE | 2021-07-31 10:54 | Cardiology Progress Note ---
Date of Service July 31, 2021 Assessment & Plan (1) Acute on chronic diastolic CHF (congestive heart failure): Plan: -normal systolic function with moderate LVH. -decompensation secondary to dietary indiscretion with salt. -improving with intravenous Lasix. -would continue diuretics until BUN and creatinine increase. -daily PRP. (2) Left bundle branch block: Plan: -new when compared with a tracing done in December 2017. -echocardiogram notes normal systolic function. -Lexiscan stress test as an outpatient to rule out myocardial ischemia. (3) HTN (hypertension): Plan: -likely related to decompensated CHF at time of presentation. (4) Dyslipidemia: Plan: -continue simvastatin. Admission and Anticipated Discharge Date Admission Date: July 30, 2021 Subjective The patient is resting comfortably at the bedside without complaints of chest pain or dyspnea. Feels dramatically improved compared with admission. Physical Exam Physical Exam: In general this is an obese white male in no acute distress. HEENT exam is negative. Neck is supple with full carotid upstrokes. There are no carotid bruits. No JVD. There is no thyromegaly. Cardiovascular exam reveals a regular rhythm with a normal S1-S2. A prominent S4 is noted. No murmurs. Lungs are clear without rales, rhonchi, or wheezes. Abdomen is obese without bruits. Extremities reveal intact radial artery pulses bilaterally. Trace to 1+ pretibial edema is noted. Results & Data ([facility]) Vital Signs (Past 12 Hours) Vital Signs Temp Pulse Pulse Resp BP BP Pulse Ox 07/31/21 07:49 55 L 07/31/21 03:27 36.7 C 48 L 18 169/78 H 96 07/30/21 23:24 37 C 53 L 18 162/71 H 91 Diagnostic Findings monitoring specialist is benign. PG Care Time/CCT Total # of Minutes Spent Total Time Spent with Patient: Total time spent is greater than 50% in coordination of care (as documented) at patient's floor/unit and/or counseling patient: Coding Level of Care Code 27792 Subseq Hosp Care Lvl 3 Diagnoses Acute on chronic diastolic CHF (congestive heart failure) I50.33 Left bundle branch block I44.7 HTN (hypertension) I10 Dyslipidemia E78.5
--- NOTE | 2021-07-31 12:56 | Discharge Summary ---
Date of Service July 31, 2021 Admission HPI Per Admitting Provider Is a 76-year-old male who presented to the emergency department secondary to shortness of breath. Patient says the shortness of breath began last night in the preceding several days he was feeling finally his normal self. Patient says he has had a slight cough but denies any fevers, shakes, chills. He does report orthopnea and clearly states that his breathing is improved when he sits upright. He has not exhibited any chest pain. He denies any abdominal pain but does have diarrhea. He denies any nausea or vomiting. He has not lost his sense of taste or smell. The patient notes that he has gained approximately 25 pounds over the past year and reports some worsening lower extremity edema. Patient also notes to some worsening dyspnea on exertion over the past several weeks most notably over the past 2 weeks. He says that previously he could walk easily 3 miles on a flat surface but has been unable to do so partly due to an arthritic knee but also due to shortness of breath. I question the patient out salt intake and he does admit to eating foods that contain high amount of salt. Patient is a remote smoker having quit in 1992 but he did smoke up to 1 to 2 packs of cigarettes per day for 43 years. Patient says that he did have a stress test that was reportedly okay without signs of ischemia in 2009 prior to undergoing a knee replacement. Patient does report he had a brother who suffere d from coronary artery disease but this was diagnosed in his 70s. He also had a father who of a ruptured aneurysm. Patient does report that he has received his Covid vaccine and also received his Covid booster in June of this year. In the emergency department the patient did have labs and imaging which and family reviewed. A chest x-ray showed the patient had patchy interstitial infil trates. He also underwent a CT scan of the chest that was negative for pulmonary emboli but the patient was noted to have cardiomegaly as well as pulmonary edema with small bilateral pleural effusions. Labs including CBC were white blood cell count, hemoglobin, hematocrit, were within the normal range. His platelet count was 129,000. Chemistry profile showed sodium, potassium, BUN, and creatinine were all within normal range. Patient did have a low magnesium level of 1.6. There were no significant elevation of LFTs other than a slight elevation of his total bilirubin at 1.5. Urinalysis was not indicative of infection. Patient did have serologies for RSV, influenza, and Covid checked which were all negative. An EKG was performed that showed a new left bundle branch block. The treating clinician emergency department has supplemented the patient's oxygen and had given some intravenous Lasix. At the time of interview the patient is resting comfortably in bed and he was in no distress or discomfort. Principal Diagnosis CHF exacerbation Discharge Data Allergies Allergy/AdvReac Type Severity Reaction Status Date / Time Sulfa (Sulfonamide Allergy Severe RASH, Verified 07/30/21 09:06 Antibiotics) HIVES,SWELLING Consultations 07/30/21 11:26 ED Decision to Admit Stat 07/30/21 13:15 Consult Cardiology Routine Ordered Studies 07/30/21 09:05 CT angio chest PE protocol Stat Hospital Course (1) Shortness of breath: Patient will be admitted to the hospital proceeding as follows: I suspect by the patient's clinical presentation, imaging, and labs that he is suffering from congestive heart failure: We will trend the patient's cardiac enzymes We will check an echocardiogram at this time. I discussed with the cardiopulmonary lab and they will perform this test within the next few minutes. Due to the patient's new left bundle branch block if there is a marked abnormality on his echocardiogram we will enlist the help of cardiology to determine if cardiac catheterization is needed I have counseled the patient on the importance of a low-sodium diet We will place the patient on antiplatelet therapy in the form of aspirin We will maintain the patient on his home dose of olmesartan 40 mg daily We will provide diuresis with Lasix 40 mg IV twice daily for the present time We will hold the patient's beta-vahid for the present time We will maintain him on statin therapy. He does take Zocor 20 mg daily We will utilize Lovenox and SCDs for DVT prevention I have discussed with the patient CODE STATUS and he notes in the event of cardiopulmonary rest he would not want mechanical ventilation or chest compressions performed. He also notes that in the event of respiratory deterioration he would not want mechanical ventilation use. He will therefore be a level 5 DO NOT RESUSCITATE Additional recommendations will be forthcoming based on pending studies and the patient's clinical course as it unfolds as well as recommendations by cardiology patient was seen by cardiology while in hospital He expressed a willingness to be discharge, citing improved SOB (2) Acute heart failure with preserved ejection fraction: His shortness of breath improved after diuresis, he made good urine (3) Obstructive sleep apnea: (4) Left bundle branch block: Follow up with cardiology for outpatient lexiscan. There was no wall motion abnormality on ECHO (5) HTN (hypertension): Total Time Total Time Spent Total Time Spent (In Minutes): 35 min Discharge Plan Discharge Items Patient Disposition: Home - Home Health Services Reason For Visit: CHF Discharge Diagnosis: CHF exacerbation Activity: Resume your previous activity Non-emergency contact: Primary Care Provider Call non-emergency contact if: you have any medication questions and your symptoms worsen Follow-up/Referrals: Khoi Patel MD [Primary Care Provider] - Diet: Heart Healthy Addtl Attending Provider Instructions: Please make appointment to follow up with 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 assembler 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 for outpatient lexiscan Pending Studies at Discharge: No Stand-Alone Forms: My [facility], Smoking Cessation Medications and DC Order Prescriptions: New furosemide [Lasix] 40 mg tablet 40 mg PO DAILY Qty: 30 RF: 0 potassium chloride 10 mEq capsule, extended release 10 meq PO DAILY Qty: 30 RF: 0 Continued allopurinol 300 mg tablet 300 mg PO DAILY Qty: 90 RF: 3 doxazosin 4 mg tablet 4 mg PO DAILY Qty: 90 RF: 3 lansoprazole 30 mg capsule,delayed release(DR/EC) 30 mg PO DAILY Qty: 90 RF: 3 olmesartan [Benicar] 40 mg tablet 40 mg PO DAILY Qty: 90 RF: 3 simvastatin 20 mg tablet 20 mg PO DAILY Qty: 90 RF: 3 atenolol 25 mg tablet 25 mg PO DAILY Qty: 90 RF: 3 Discharge Orders: Discharge Order (Routine); Ordered 07/31/21 Ordered By: Robyn Walsh Admission Data Admit Date/Time: 07/30/21 11:45 Attending Provider: Robyn Walsh Admit Provider: Sukumar Fallon Primary Care Provider: Khoi Patel Other Providers: Sukumar Fallon ; Alfie Reveles Coding Level of Care Code D/C DAY MANAGEMENT >30 MINS Diagnoses Shortness of breath R06.02 Acute heart failure with preserved ejection fraction I50.31 Obstructive sleep apnea G47.33 Left bundle branch block I44.7 HTN (hypertension) I10
--- NOTE | 2021-07-31 13:21 | Hospitalist Progress Note ---
Date of Service July 31, 2021 Assessment & Plan (1) Shortness of breath: Plan: Most likely due to CHF exacerbation SOB is much improved today following diuresis (2) Acute heart failure with preserved ejection fraction: Plan: Presents with SOB Started on diuresis with lasix 40mg daily making good urine 2 D ECHO showed preserved EF monitor I/O, daily weight Appreciate cardiology recs (3) Bradycardia: Plan: HR in the 40's patient on Coreg 3.125 mg BID Cardiology on consult (4) Obstructive sleep apnea: (5) Left bundle branch block: Plan: Follow up with cardiology for outpatient lexiscan. There was no wall motion abnormality on ECHO (6) HTN (hypertension): Plan: BP 156/77 continue home meds add HCTZ Admission and Anticipated Discharge Date Admission Date: July 30, 2021 Subjective Patient says shortness of breath is much improved Review of Systems Review of Systems: All systems reviewed are negative, apart from the ones contained in the history. Physical Exam Physical Exam: The patient is awake, alert and oriented 3, well developed and well nourished, normocephalic and atraumatic, lying in bed and in no acute distress. HEENT--PERRL, EOMI, mucous membranes and oropharynx mildly dry Neck--supple. No JVD. No bruits. Thyroid normal, trachea midline, no adenopathy. Heart--normal S1 and S2. No murmurs, rubs or gallops. Lungs--clear bilaterally, no respiratory distress, no accessory muscle use. Abdomen--normal bowel sounds and soft. Mild epigastric and left sided abdominal pain Extremities--no cyanosis or clubbing. No edema. Dermatologic--normal skin turgor, normal color, no abnormal lymph nodes, no rash. Neurologic--cranial nerves II through XII grossly intact. Rheumatologic--normal range of motion. Psychiatric--normal affect. Results & Data Results & Data ([facility]) Vital Signs (Past 12 Hours) Vital Signs Temp Pulse Pulse Resp BP BP Pulse Ox 07/31/21 11:48 98.1 F 52 L 16 156/77 H 92 07/31/21 07:49 55 L 07/31/21 03:27 98.1 F 48 L 18 169/78 H 96 PG Care Time/CCT Total # of Minutes Spent Total Time Spent with Patient: Total time spent is greater than 50% in coordination of care (as documented) at patient's floor/unit and/or counseling patient: Coding Level of Care Code 61170 Subseq Hosp Care Lvl 2 Diagnoses Shortness of breath R06.02 Acute heart failure with preserved ejection fraction I50.31 Obstructive sleep apnea G47.33 Left bundle branch block I44.7 HTN (hypertension) I10 Bradycardia R00.1
--- NOTE | 2021-07-31 15:54 | Electrocardiogram Report ---
Test Reason : Blood Pressure : / mmHG Vent. Rate : 050 BPM Atrial Rate : 050 BPM P-R Int : 230 ms QRS Dur : 150 ms QT Int : 530 ms P-R-T Axes : 055 -54 103 degrees QTc Int : 483 ms Sinus bradycardia with 1st degree A-V block Left axis deviation Left bundle branch block Abnormal ECG When compared with ECG of 30-JUL-2021 08:01, Premature ventricular complexes are no longer Present Vent. rate has decreased BY 24 BPM Confirmed by Alfie Reveles ([id number]) on 07/31/2021 3:53:56 PM Referred By: REFERRED SELF Confirmed By:Alfie Reveles
[2021-07-31] MEDS ORDERED: COUGH DROP (SUGAR FREE) LOZ 24 LOZ/1 BOX BUCCAL STA (17:48)
[2021-07-31] MEDS: ENOXAPARIN INJ 40 MG/0.4 ML SYR SQ SCH (20:30)
[2021-08-01] MEDS ORDERED: hydroCHLOROthiazide 25 MG TAB PO SCH (09:00)
[2021-08-01] MEDS: SIMVASTATIN 20 MG TAB PO SCH (09:54)
[2021-08-01] MEDS: PANTOprazole 40 MG TAB PO SCH (09:54)
[2021-08-01] MEDS: OLMESARTAN MEDOXOMIL 40 MG TAB PO SCH (09:55)
[2021-08-01] MEDS: FUROSEMIDE 40 MG/4 ML VIAL IV SCH (09:55)
[2021-08-01] MEDS: DOXAZosin MESYLATE 4 MG TAB PO SCH (09:55)
[2021-08-01] MEDS: allopurinoL 300 MG TAB PO SCH (09:56)
[2021-08-01] MEDS: ASPIRIN 81 MG ECTAB PO SCH (09:56)
--- NOTE | 2021-08-01 14:34 | Hospitalist Progress Note ---
Date of Service August 01, 2021 Assessment & Plan (1) Shortness of breath: Plan: Most likely due to acute CHF exacerbation SOB is much improved today following diuresis Will continue to monitor i/O, daily weights (2) Acute heart failure with preserved ejection fraction: Plan: Presents with SOB Started on diuresis with lasix 40mg daily making good urine 2 D ECHO showed preserved EF monitor I/O, daily weight Appreciate cardiology recs (3) Bradycardia: Plan: HR improved to 55 today EKG showed sinus rythm with RBBB and 1st degree AV block patient on Coreg 3.125 mg BID Cardiology on consult (4) Obstructive sleep apnea: 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 There was no wall motion abnormality on ECHO (6) HTN (hypertension): Plan: BP 159/69 continue home meds added HCTZ Admission and Anticipated Discharge Date Admission Date: July 30, 2021 Subjective Patient says shortness of breath is much improved, denies chest pain Review of Systems Review of Systems: All systems reviewed are negative, apart from the ones contained in the history. Physical Exam Physical Exam: The patient is awake, alert and oriented 3, well developed and well nourished, normocephalic and atraumatic, lying in bed and in no acute distress. HEENT--PERRL, EOMI, mucous membranes and oropharynx mildly dry Neck--supple. No JVD. No bruits. Thyroid normal, trachea midline, no adenopathy. Heart--normal S1 and S2. No murmurs, rubs or gallops. Lungs--clear bilaterally, no respiratory distress, no accessory muscle use. Abdomen--normal bowel sounds and soft. Mild epigastric and left sided abdominal pain Extremities--no cyanosis or clubbing. No edema. Dermatologic--normal skin turgor, normal color, no abnormal lymph nodes, no rash. Neurologic--cranial nerves II through XII grossly intact. Rheumatologic--normal range of motion. Psychiatric--normal affect. Results & Data Results & Data ([facility]) Vital Signs (Past 12 Hours) Vital Signs Temp Pulse Pulse Resp BP BP Pulse Ox 08/01/21 12:09 98.6 F 62 16 159/69 H 99 08/01/21 08:20 97.7 F 59 L 16 169/73 H 96 08/01/21 08:00 44 L 08/01/21 03:39 98.1 F 55 L 180/94 H 96 PG Care Time/CCT Total # of Minutes Spent Total Time Spent with Patient: Total time spent is greater than 50% in coordination of care (as documented) at patient's floor/unit and/or counseling patient: Coding Level of Care Code 36053 Subseq Hosp Care Lvl 2 Diagnoses Shortness of breath R06.02 Acute heart failure with preserved ejection fraction I50.31 Bradycardia R00.1 Obstructive sleep apnea G47.33 Left bundle branch block I44.7 HTN (hypertension) I10
--- NOTE | 2021-08-01 16:33 | Cardiology Progress Note ---
Date of Service August 01, 2021 Assessment & Plan (1) Acute heart failure with preserved ejection fraction: (2) Bradycardia: (3) HTN (hypertension): Plan: ASSESSMENT/PLAN: 1. Acute heart failure with preserved EF: He appears euvolemic. Labs on 07/31/2021 suggests mild azotemia. Discontinued IV Lasix. Can start Lasix 40 mg p.o. once daily as an outpatient. Discussed the importance of a low-sodium diet, less than 2000 mg daily. Sodium indiscretion likely playing a role. Recommended daily weights and recording them for review. Recommend heart failure program on discharge for close follow-up and continued education. 2. Bradycardia: Mild bradycardia and completely asymptomatic. Able to ambulate in the hallway without symptoms and noted increased heart rate from baseline. Discontinued carvedilol. Would avoid beta-vahid on discharge. No further intervention necessary in regards to asymptomatic mild bradycardia. 3. Hypertension: Blood pressure elevated but has been elevated chronically. Recommend discontinuation of HCTZ as he will be on a loop diuretic on discharge. Can continue his chronic ARB therapy. Start amlodipine 5 mg daily. Further adjustment can be made as an outpatient. 4. Disposition: Can be discharged home from a cardiology standpoint. Close follow-up with heart failure program recommended. Heart failure program will arrange repeat labs. Plan of care communicated with primary hospitalist and also discussed with heart failure program Vivien Fitzgerald. Follow-up with Dr. Reveles as an outpatient. Admission and Anticipated Discharge Date Admission Date: July 30, 2021 Subjective Called by nursing staff for bradycardia and bradycardia. Patient feels much improved from a breathing standpoint. He denies shortness of breath, orthopnea, syncope, near-syncope, palpitations, edema, or bleeding. His breathing is back to baseline. He ambulated in the hallway today without symptoms such as lightheadedness, fatigue, or shortness of breath. He states that his heart rate improved with exertion. He received 2 doses of carvedilol, the most recent being yesterday morning. Carvedilol otherwise has been held due to bradycardia. On telemetry is heart rate has been noted to be in the 40s to 50s in sinus rhythm. He was not on a diuretic previous to this hospitalization. He had noted edema and shortness of breath. He admits that he consumes significant amounts of sodium prior to this hospitalization. Review of systems: As above. Physical Exam Physical Exam: Gen.: No acute distress. Alert and oriented. HEENT: Anicteric sclera. Neck: No JVD. Cardiac: Regular in the 50s. Normal S1-S2. No murmurs, rubs, or gallops. Pulmonary: Clear to auscultation bilaterally without wheezes, rales, or rhonchi. Abdomen: Soft, nontender, nondistended, with normoactive bowel sounds. No bruits noted. Extremities: 2+ radial pulses bilaterally. 2+ posterior tibialis pulses bilaterally. No edema or cyanosis. Psychiatric: Affect appears appropriate. Results & Data ([facility]) Vital Signs (Past 12 Hours) Vital Signs Temp Pulse Pulse Resp BP Pulse Ox 08/01/21 16:00 49 L 08/01/21 12:09 37.0 C 62 16 159/69 H 99 08/01/21 08:20 36.5 C 59 L 16 169/73 H 96 08/01/21 08:00 44 L Intake & Output 07/30/21 07/31/21 08/01/21 08/02/21 06:59 06:59 06:59 06:59 Intake Total 500 / 500 240 / 240 575 / 575 Output Total 725 / 725 1725 / 1725 1300 / 1300 Balance -225 / -225 -1485 / -1485 -725 / -725 Weight 235 lb 3.732 oz 234 lb Laboratory Results Laboratory Results - last 48 hr 07/30/21 07/31/21 07/31/21 21:06 06:26 06:26 WBC 6.79 RBC 4.39 L Hgb 13.9 L Hct 41.9 L MCV 95.4 MCH 31.7 MCHC 33.2 RDW Std Deviation 47.0 H RDW Coeff of Jeana 13.7 Plt Count 138 MPV 11.6 H Immature Gran % (Auto) 0.1 Neut % (Auto) 67.2 Lymph % (Auto) 16.1 Dickson % (Auto) 14.4 Eos % (Auto) 2.1 Baso % (Auto) 0.1 Neut # (Auto) 4.56 Lymph # (Auto) 1.09 L Dickson # (Auto) 0.98 H Eos # (Auto) 0.14 Baso # (Auto) 0.01 Immature Gran # (Auto) 0.01 Sodium 139 Potassium 3.4 L Chloride 104 Carbon Dioxide 30 Anion Gap 5.0 BUN 19 H Creatinine 1.13 Est Cr Clr Drug Dosing 64.8 Est GFR ( Amer) 72.3 Est GFR (Non-Af Amer) 62.4 BUN/Creatinine Ratio 17.0 Glucose 101 H Calcium 9.2 Magnesium 2.3 Troponin I 0.040 Diagnostic Findings Telemetry personally reviewed: Sinus bradycardia. No arrhythmia. ECG personally reviewed 08/01/2021: Sinus bradycardia first-degree AV block 58 beats per minute. LBBB. Medications Administered Current Inpatient Medications Acetaminophen (Acetaminophen 325 Mg Tab) 650 mg PO Q4H PRN PRN Reason: Pain or Fever Stop: 08/29/21 13:14 Al Hydrox/Mg Hydrox/Simethicone (Aluminum/Magnesium Susp 30 Ml Udc) 15 ml PO Q4H PRN PRN Reason: Dyspepsia Stop: 08/29/21 13:14 Allopurinol (Allopurinol 300 Mg Tab) 300 mg PO DAILY [facility] Stop: 08/30/21 08:59 Last Admin: 08/01/21 09:56 Dose: 300 mg Documented by: Amlodipine Besylate (Amlodipine Besylate 5 Mg Tab) 5 mg PO QAM [facility] Stop: 09/01/21 08:59 Aspirin (Aspirin 81 Mg Ectab) 81 mg PO QAM [facility] Stop: 08/30/21 08:59 Last Admin: 08/01/21 09:56 Dose: 81 mg Documented by: Doxazosin Mesylate (Doxazosin Mesylate 4 Mg Tab) 4 mg PO DAILY [facility] Stop: 08/30/21 08:59 Last Admin: 08/01/21 09:55 Dose: 4 mg Documented by: Enoxaparin Sodium (Enoxaparin Inj 40 Mg/0.4 Ml Syr) 40 mg SQ QPM [facility] Stop: 08/29/21 20:59 Last Admin: 07/31/21 20:30 Dose: 40 mg Documented by: Furosemide (Furosemide 40 Mg Tab) 40 mg PO QAM [facility] Stop: 09/01/21 08:59 Magnesium Hydroxide (Magnesium Hydroxide Susp 30 Ml Udc) 30 ml PO Q12H PRN PRN Reason: Constipation Stop: 08/29/21 13:14 Nitroglycerin (Nitroglycerin Sl 0.4 Mg/Tab Tab) 0.4 mg SL UD PRN PRN Reason: Chest Pain Stop: 08/29/21 13:14 Olmesartan (Olmesartan Medoxomil 40 Mg Tab) 40 mg PO DAILY [facility] Stop: 08/30/21 08:59 Last Admin: 08/01/21 09:55 Dose: 40 mg Documented by: Ondansetron HCl (Ondansetron Inj 2 Mg/Ml 2 Ml Vial) 4 mg IV Q6H PRN PRN Reason: Nausea Stop: 08/29/21 13:14 Pantoprazole Sodium (Pantoprazole 40 Mg Tab) 40 mg PO DAILY [facility]; Protocol Stop: 08/30/21 08:59 Last Admin: 08/01/21 09:54 Dose: 40 mg Documented by: Polyethylene Glycol (Polyethylene (Miralax) 17 Gm Pack) 17 gm PO DAILY PRN PRN Reason: Constipation Stop: 08/29/21 13:14 Simvastatin (Simvastatin 20 Mg Tab) 20 mg PO DAILY [facility] Stop: 08/30/21 08:59 Last Admin: 08/01/21 09:54 Dose: 20 mg Documented by: PG Care Time/CCT Total # of Minutes Spent Total Time Spent with Patient: Total time spent is greater than 50% in coordination of care (as documented) at patient's floor/unit and/or counseling patient: Coding Level of Care Code 06688 Subseq Hosp Care Lvl 3 Diagnoses Acute heart failure with preserved ejection fraction I50.31 Bradycardia R00.1 HTN (hypertension) I10
--- NOTE | 2021-08-01 22:28 | Electrocardiogram Report ---
Test Reason : Blood Pressure : / mmHG Vent. Rate : 058 BPM Atrial Rate : 058 BPM P-R Int : 228 ms QRS Dur : 154 ms QT Int : 500 ms P-R-T Axes : 054 -49 099 degrees QTc Int : 490 ms Sinus bradycardia with 1st degree A-V block Left axis deviation Left bundle branch block Abnormal ECG When compared with ECG of 31-JUL-2021 05:18, No significant change was found Confirmed by Kenneth Sharpe ([id number]) on 08/01/2021 10:27:36 PM Referred By: REFERRED SELF Confirmed By:Kenneth Sharpe
[2021-08-02] MEDS ORDERED: amLODIPine BESYLATE 5 MG TAB PO SCH (09:00)
[2021-08-02] MEDS ORDERED: FUROSEMIDE 40 MG TAB PO SCH (09:00)
== END 2021-08-01 18:12 | disposition home or self-care (01) | DRG 291 ==
LOC: ED 07:38 → 2S 11:45 → SUATTDRO 11:45 → 2S 12:50

== ENCOUNTER 2022-10-18 05:54 | Observation (INO) ==
[2022-10-18 06:47] LABS: Basophils # (auto) 0.02 K/uL (0-0.2); Basophils % (auto) 0.1 %; Eosinophils # (auto) 0.34 K/uL (0-0.50); Eosinophils % (auto) 2.2 %; Hematocrit (blood only) 46.4 % (42.0-52.0); Hemoglobin 15.7 g/dl (14.0-18.0); Immature Granulocytes # (auto) 0.15 K/uL (0.01-0.20); Lymphocytes # (auto) 1.21 K/uL (1.2-3.4); Lymphocytes % (auto) 7.9 %; Mean Corpuscular Hemoglobin 31.7 pg (25.0-34.0); Mean Corpuscular Hgb Conc 33.8 g/dL (32.0-36.0); Mean Corpuscular Volume 93.7 fL (80.0-100.0); Mean Platelet Volume 11.8 fL (9.4-12.4); Monocytes # (auto) 1.48 K/uL (0.11-0.59); Monocytes % (auto) 9.7 %; Neutrophils # (auto) 12.09 K/uL (1.40-6.50); Neutrophils % (auto) 79.1 %; Platelet Count 119 K/uL (130-400); RDW Coefficient of Variation 13.7 % (11.5-14.5); RDW Standard Deviation 47.1 fL (36.4-46.3); Red Blood Count 4.95 M/uL (4.70-6.10); White Blood Count 15.29 K/ul (4.8-10.8)
[2022-10-18 06:57] LABS: Calcium 9.2 mg/dl (8.5-10.1); Creatinine Clr Calc Pharmacy 64.8 ml/min; Total Protein 6.4 gm/dl (6.0-8.3)
[2022-10-18] MEDS ORDERED: METOPROLOL SUCC 50MG EXT REL TAB PO STA (07:03)
[2022-10-18] MEDS ORDERED: SODIUM CHLORIDE 0.9% 1000ML 500 ML IV ONE (07:03)
[2022-10-18] MEDS ORDERED: ALBUTEROL HFA 8 GM INHALER INH ONE (07:03)
[2022-10-18] MEDS ORDERED: BENZONATATE 100 MG CAPSULE PO ONE (07:03)
[2022-10-18 07:06] LABS: Albumin Globulin Ratio 1.7 (0.9-2); Est GFR (African American) 71.8 ml/min; Est GFR (Non-African American) 61.9 ml/min; Globulin 2.4 gm/dl (2.5-4.0); Magnesium 1.6 mg/dl (1.7-2.4); Potassium 3.5 mmol/L (3.5-5.1)
[2022-10-18 07:16] LABS: Troponin I High Sensitivity 55.7 pg/ml (0-20)
[2022-10-18 07:18] LABS: INR 1.1 (0.9-1.1); Partial Thromboplastin Ratio 1.1; Partial Thromboplastin Time 30.1 Seconds (21.0-31.0); Prothrombin Time 11.6 Seconds (9.0-12.0)
[2022-10-18] MEDS ORDERED: METOPROLOL TARTRATE 1 MG/ML VIAL IV STA (07:33)
[2022-10-18] MEDS ORDERED: MAGNESIUM SULFATE / D5W 1 GM/100 ML BAG IV STA (07:33)
--- NOTE | 2022-10-18 07:38 | Emergency Department Note ---
ED Visit Note NAME: LINDA ALVARENGA AGE: 77 SEX: M : 1945 ARRIVES VIA: Ambulance INFORMANT: [Patient][EMS] ED PROVIDER(S): [Jabari Rivera MD] CHIEF COMPLAINT: Shortness of breath HISTORY OF PRESENT ILLNESS: The patient is a 77-year-old male with a history of A-fib. He is on metoprolol and Eliquis for rate control and anticoagulation. He presents with 3 days of cough and 2 days of diarrhea. He has not had vomiting, no fever. He does admit to some increased weakness and fatigue. He denies any chest pain. In route to the hospital, the patient was given IV Cardizem, oral aspirin, IV saline. His heart rate initially was around 140-150. The patient denies taking his morning meds. He does typically take metoprolol in the morning. Patient denies any sick contacts. He states that he does not have diagnosed lung disease. He states the cough is the worst of everything for him. Even taking a deep breath triggers him to cough. PMHx/PSHx: See Below SOCIAL HISTORY: See Below. PHYSICAL EXAM: GENERAL: Patient is in no acute distress. HEENT: No acute trauma, normocephalic atraumatic, mucous membranes moist, no nasal congestion. NECK: No stridor, no adenopathy, no meningismus, trachea is midline. LUNGS: Clear to auscultation bilaterally, no wheeze, no rhonchi, breath sounds equal. Dry cough noted. HEART: Irregular rhythm, moderately tachycardic. No obvious murmur. ABDOMEN: Soft, nontender, bowel sounds positive, no peritonitis. EXTREMITIES: No cyanosis or edema, full range of motion of all the joints without pain or difficulty, no signs for acute trauma. NEUROLOGIC: Oriented x 3, no acute motor or sensory deficits, no focal weakness. SKIN: No rash, no jaundice, no diaphoresis. DIFFERENTIAL DIAGNOSIS: A-fib or a flutter, bronchitis, pneumonia, CHF, [place], RSV, COVID-19, dehydration, anemia, among others. EMERGENCY DEPARTMENT COURSE/PROCEDURES: Prior/Outside records reviewed: EMS records. ECG per my interpretation: Indication was weakness and tachycardia. The ECG shows what appears to be an atrial flutter/atrial fibrillation. The rate is 92. There is a left bundle branch block. There is no concerning ST elevation. QTc is 477 Continuous Cardiac Monitoring per my interpretation: An order was placed for continuous cardiac monitoring. The monitor shows a rate of 112 with atrial fibrillation. Critical Care Note: I have personally spent 41 minutes of critical care time in the direct management of this patient. This includes bedside care, interpretation of diagnostic studies, and testing, discussion with consultants, patient, and family members, and other required patient management activities. This 41 minutes is in excess of all separately billable procedures. MEDICAL DECISION MAKING: DISPOSITION: .
--- NOTE | 2022-10-18 07:50 | XRay Report ---
XR chest 1V portable HISTORY: Chest pain, nonspecific COMPARISON: Chest 07/30/2021. FINDINGS: No pneumothorax. There are low lung volumes. The heart is mildly enlarged. There is mild ce ntral pulmonary vascular congestion without overt edema. Left basilar linear densities favor subsegme ntal atelectasis. IMPRESSION: Cardiomegaly with mild congestive change. ACT 112: Negative or not required by law. Electronically signed by: Smith Cottrell M.D. 10/18/2022 7:49 AM
[2022-10-18] MEDS ORDERED: cefTRIAXone SODIUM 2,000 MG/70 ML BAG IV STA (07:52)
--- NOTE | 2022-10-18 09:17 | History & Physical Report ---
Date of Service October 18, 2022 Assessment & Plan (1) Acute bronchitis: Plan: Intravenous Rocephin. Sputum culture (2) Generalized weakness: Plan: IV fluid rehydration. Supportive care (3) Atrial fibrillation with rapid ventricular response: Plan: He received intravenous diltiazem and metoprolol. Heart rate is now controlled. Continue Eliquis. Continue oral metoprolol (4) Hypomagnesemia: Plan: Parenteral magnesium replacement. Serial labs (5) Congestive heart failure: Plan: History of chronic diastolic CHF. No current CHF. Will monitor intake and output (6) HTN (hypertension): Plan: Hold doxazosin and olmesartan for now. Continue metoprolol (7) Dyslipidemia: Plan: Continue statin therapy Plan Observation with telemetry. Intravenous Rocephin. Hopefully home tomorrowOctober 19 History of Present Illness Chief Complaint: Productive cough, weakness Primary Care Provider: Khoi Patel MD 77-year-old male with several days of productive cough and weakness. He also has had some nausea and diarrhea but no vomiting. No fever. He presents to the ED for evaluation. Clinically he has acute bronchitis and appears to be somewhat volume depleted. He has chronic atrial fibrillation with a somewhat rapid ventricular rate on admission which was corrected with intravenous diltiazem administered by EMS and subsequent intravenous metoprolol administered in the ED. He is receiving magnesium replacement and intravenous Rocephin. He will be placed in observation with IV fluids and continued Rocephin. Sputum culture will be obtained if sputum is produced. Hopefully he will be able to go home tomorrow, October 19. Allergies Allergy/AdvReac Type Severity Reaction Status Date / Time Sulfa (Sulfonamide Allergy Severe RASH, Verified 10/18/22 09:01 Antibiotics) HIVES,SWELLING Home Medications Medication Instructions Recorded Confirmed Type allopurinol 300 mg tablet 300 mg PO DAILY #90 tabs 07/03/22 10/18/22 Rx apixaban 5 mg tablet (Eliquis) 5 mg PO BID #60 tabs 07/03/22 10/18/22 Rx doxazosin 4 mg tablet 6 mg PO DAILY #180 tabs 07/03/22 10/18/22 Rx furosemide 40 mg tablet (Lasix) 40 mg PO DAILY PRN weight gain #90 07/03/22 10/18/22 Rx tabs olmesartan 40 mg tablet (Benicar) 40 mg PO DAILY #90 tabs 07/03/22 08/05/22 Rx potassium chloride 10 mEq 10 meq PO DAILY PRN weight gain 07/03/22 08/05/22 Rx capsule,extended release #90 caps simvastatin 20 mg tablet 20 mg PO DAILY #90 tabs 07/03/22 08/05/22 Rx lansoprazole 30 mg capsule,delayed 30 mg PO Q OTHER DAY 10/18/22 10/18/22 History release (Prevacid) metoprolol succinate 50 mg 50 mg PO DAILY 10/18/22 10/18/22 History tablet,extended release 24 hr Past Med/Surg History Medical History (Updated 10/18/22 @ 09:16 by Pete Lanier MD) Acute kidney injury Clostridium difficile infection Esophageal stricture Hemangioendothelioma of liver Hypomagnesemia Olecranon bursitis Painful total knee replacement, left Sensorineural hearing loss (SNHL) of both ears Trochanteric bursitis Ulcer of esophagus with bleeding Surgical History H/O colonoscopy (~01/2017) History of bilateral knee replacement Hx of total knee arthroplasty S/P tonsillectomy Family History Family/Other Coronary heart disease Environmental allergies Mother Hearing loss Hypertension Breast cancer Father Cardiac disorder Hypertension Heart disease Other No family history of adverse response to anesthesia No family history of bleeding disorder Social History Smoking Status: Former smoker Tobacco Type: Cigarettes, Pipe and Cigars Age Started Using Tobacco: 15; Age Quit Using Tobacco: 48; packs per day: 2; Hx Alcohol Use: Yes Alcohol type: wine and hard liquor Alcohol Intake Frequency: 4 or More x per/Week Alcohol Intake Frequency Comment: 1 glass of wine or a martini per day Hx Substance Use: No Preferred Language: Georgian Communication Ability: Effective Land Management Supervisor Required: No Beliefs That Will Affect Care: None marital status: / Current Living Situation: Alone current occupational status: retired How many Children do You have: 2 Feels Safe at Home: Yes Assistive Devices: Glasses Review of Systems Review of Systems: Constitutional-no fever or chills ENT-no blurred vision, no double vision, no epistaxis, no sore throat Respiratory-productive cough. No hemoptysis. No wheezing Cardiac-no palpitations, no chest pain, no syncope GI-no nausea, vomiting, diarrhea, melena, hematochezia -no urinary retention, no urinary incontinence, no dysuria, no hematuria Musculoskeletal-no joint pain, no muscle tenderness Skin-no bruising, no rashes, no pruritus Neuro-generalized weakness. No focal deficits Psych-no depression, no anxiety Physical Exam Physical Exam: General-alert and oriented x3, no fevers, no chills HEENT-head atraumatic and normocephalic, TMs intact bilaterally, pupils equal and reactive to light, extraocular muscles intact Neck-no lymphadenopathy or thyromegaly, trachea midline Chest-midline rhonchi audible with forced coughing. No inspiratory rales. No dullness to percussion. No wheezing i Cardiac-irregular rhythm. Normal rate. Normal S1 and S2 Abdomen-normal bowel sounds, nontender, no hepatosplenomegaly Extremities-no cyanosis, clubbing, or edema Neuro-cranial nerves II through XII intact, motor and sensory function within normal limits, strength symmetrical , no focal deficits Psych-normal affect, normal mood Results & Data Results & Data ([facility]) Vital Signs (Past 12 Hours) Vital Signs Pulse Resp BP Pulse Ox O2 Del Method 10/18/22 07:30 98 H 22 145/71 H 96 Room Air 10/18/22 07:00 112 H 20 123/96 95 Room Air 10/18/22 06:30 93 H 20 127/88 95 Room Air 10/18/22 06:03 99 H 22 172/93 H 98 Room Air 10/18/22 07:45 109 H 145/71 H 10/18/22 06:08 104 H 20 96 Room Air 10/18/22 06:02 105 H 10/18/22 05:54 96 Room Air 10/18/22 05:54 Room Air 10/18/22 05:46 110 H 19 172/93 H 98 Room Air Laboratory Results 10/18/22 06:15 10/18/22 06:15 Code Status & VTE Plan Code Status Full code PG Care Time/CCT Total # of Minutes Spent Total Time Spent with Patient: Total time spent is greater than 50% in coordination of care (as documented) at patient's floor/unit and/or counseling patient: Coding Level of Care Code 31587 INT INP/OBS CARE 375MIN Diagnoses Acute bronchitis J20.9 Generalized weakness R53.1 Atrial fibrillation with rapid ventricular response I48.91 Hypomagnesemia E83.42 Congestive heart failure I50.9 Heart failure chronicity: acute on chronic Heart failure type: unspecified HTN (hypertension) I10 Dyslipidemia E78.5 (5) Congestive heart failure Heart failure chronicity: acute on chronic Heart failure type: unspecified Qualified Code(s): I50.9 - Heart failure, unspecified
--- NOTE | 2022-10-18 10:18 | Electrocardiogram Report ---
Test Reason : Blood Pressure : / mmHG Vent. Rate : 092 BPM Atrial Rate : 081 BPM P-R Int : 184 ms QRS Dur : 142 ms QT Int : 386 ms P-R-T Axes : 000 -60 110 degrees QTc Int : 477 ms Atrial fibrillation Left axis deviation Left bundle branch block Abnormal ECG When compared with ECG of 01-AUG-2021 02:29, HR has increased Atrial fibrillation is now Present Confirmed by Alonzo Whitaker ([id number]) on 10/18/2022 10:18:10 AM Referred By: NO PCP Confirmed By:Alonzo Whitaker
[2022-10-18] MEDS ORDERED: ONDANSETRON INJ 2 MG/ML 2 ML VIAL IV PRN (10:43)
[2022-10-18] MEDS ORDERED: ACETAMINOPHEN 325 MG TAB PO PRN (10:43)
[2022-10-18] MEDS ORDERED: ALUMINUM/MAGNESIUM SUSP 30 ML UDC PO PRN (10:43)
--- NOTE | 2022-10-18 11:28 | Emergency Department Note ---
Impression & Plan Atrial fibrillation with rapid ventricular response, Tachycardia, Weakness, Cough, Leukocytosis, Hypomagnesemia ED Provider Note NAME: LINDA ALVARENGA AGE: 77 SEX: M : 1945 ARRIVES VIA: Ambulance INFORMANT: [Patient][, ] ED PROVIDER(S): [Jabari Rivera MD] CHIEF COMPLAINT: Shortness of breath HISTORY OF PRESENT ILLNESS: The patient is a 77-year-old male with a history of A-fib. He is on metoprolol and Eliquis for rate control and anticoagulation. He presents with 3 days of cough and 2 days of diarrhea. He has not had vomiting, no fever. He does admit to some increased weakness and fatigue. He denies any chest pain. In route to the hospital, the patient was given IV Cardizem, oral aspirin, IV saline. His heart rate initially was around 140-150. The patient denies taking his morning meds. He does typically take metoprolol in the morning. Patient denies any sick contacts. He states that he does not have diagnosed lung disease. He states the cough is the worst of everything for him. Even taking a deep breath triggers him to cough. PMHx/PSHx: See Below SOCIAL HISTORY: See Below. PHYSICAL EXAM: GENERAL: Patient is in no acute distress. HEENT: No acute trauma, normocephalic atraumatic, mucous membranes moist, no nasal congestion. NECK: No stridor, no adenopathy, no meningismus, trachea is midline. LUNGS: Clear to auscultation bilaterally, no wheeze, no rhonchi, breath sounds equal. Dry cough noted. HEART: Irregular rhythm, moderately tachycardic. No obvious murmur. ABDOMEN: Soft, nontender, bowel sounds positive, no peritonitis. EXTREMITIES: No cyanosis or edema, full range of motion of all the joints without pain or difficulty, no signs for acute trauma. NEUROLOGIC: Oriented x 3, no acute motor or sensory deficits, no focal weakness. SKIN: No rash, no jaundice, no diaphoresis. DIFFERENTIAL DIAGNOSIS: A-fib or a flutter, bronchitis, pneumonia, CHF, [place], RSV, COVID-19, dehydration, anemia, among others. EMERGENCY DEPARTMENT COURSE/PROCEDURES: Prior/Outside records reviewed: EMS records. ECG per my interpretation: Indication was weakness and tachycardia. The ECG shows what appears to be an atrial flutter/atrial fibrillation. The rate is 92. There is a left bundle branch block. There is no concerning ST elevation. QTc is 477. Continuous Cardiac Monitoring per my interpretation: An order was placed for continuous cardiac monitoring. The monitor shows a rate of 112 with atrial fibrillation. Critical Care Note: I have personally spent 41 minutes of critical care time in the direct management of this patient. This includes bedside care, interpretation of diagnostic studies, and testing, discussion with consultants, patient, and family members, and other required patient management activities. This 41 minutes is in excess of all separately billable procedures. MEDICAL DECISION MAKING: There is a moderate leukocytosis, this would be consistent with infection. Platelet count was slightly low. There was a normal hemoglobin. No coagulopathy. Magnesium was low at 1.6, no renal failure. No concerning liver enzyme elevation. ECG showed a rapid atrial flutter/atrial fibrillation. No obvious acute ischemia. Cardiac enzyme testing x1 was slightly elevated, this elevation could be secondary to mismatch or potentially cardiac strain. BNP was slightly elevated consistent with potential fluid overload. COVID test returned negative. Chest film did not show any obvious pneumonia or pneumothorax per my review. On exam, the patient was in a rapid atrial fibrillation/atrial flutter. A dry cough was noted. The patient received IV saline, 500 cc. He was given IV metoprolol and oral me toprolol succinate. He received IV magnesium and IV ceftriaxone. He was given albuterol via MDI. The patient appears to be in a rapid A-fib/a flutter. He likely has a bronchitis or early pneumonia. His magnesium is low and there is a mild troponin elevation. I do think further care in the hospital is warranted. I spoke with the patient and case management, the on-call hospitalist was rene mosqueda. The patient has improved with the treatment provided here in the ED. His heart rate is now controlled. DISPOSITION: Patient's findings and presentation warrant a hospital stay. Past Med/Surg History Medical History Acute kidney injury Clostridium difficile infection Esophageal stricture Hemangioendothelioma of liver Hypomagnesemia Olecranon bursitis Painful total knee replacement, left Sensorineural hearing loss (SNHL) of both ears Trochanteric bursitis Ulcer of esophagus with bleeding Surgical History H/O colonoscopy (~01/2017) History of bilateral knee replacement Hx of total knee arthroplasty S/P tonsillectomy Family History Family/Other Coronary heart disease Environmental allergies Mother Hearing loss Hypertension Breast cancer Father Cardiac disorder Hypertension Heart disease Other No family history of adverse response to anesthesia No family history of bleeding disorder Social History Smoking Status: Former smoker Tobacco Type: Cigarettes, Pipe and Cigars Age Started Using Tobacco: 15; Age Quit Using Tobacco: 48; packs per day: 2; Hx Alcohol Use: Yes Alcohol type: beer, wine and hard liquor Alcohol Intake Frequency: 4 or More x per/Week Alcohol Intake Frequency Comment: 1 glass of wine or a martini per day Hx Substance Use: No Preferred Language: Guamanian Communication Ability: Effective Associate Professor Of Biology Required: No Beliefs That Will Affect Care: None marital status: / Current Living Situation: Alone current occupational status: retired How many Children do You have: 2 Feels Safe at Home: Yes Assistive Devices: Glasses Allergies Allergies Allergy/AdvReac Type Severity Reaction Status Date / Time Sulfa (Sulfonamide Allergy Severe RASH, Verified 10/18/22 09:01 Antibiotics) HIVES,SWELLING Home Meds Home Medications Medication Instructions Recorded Confirmed lansoprazole 30 mg capsule,delayed 30 mg PO Q OTHER DAY 10/18/22 10/18/22 release (Prevacid) metoprolol succinate 50 mg 50 mg PO DAILY 10/18/22 10/18/22 tablet,extended release 24 hr Previous Rx's Medication Instructions Recorded allopurinol 300 mg tablet 300 mg PO DAILY #90 tabs 07/03/22 apixaban 5 mg tablet (Eliquis) 5 mg PO BID #60 tabs 07/03/22 doxazosin 4 mg tablet 6 mg PO DAILY #180 tabs 07/03/22 furosemide 40 mg tablet (Lasix) 40 mg PO DAILY PRN weight gain #90 07/03/22 tabs olmesartan 40 mg tablet (Benicar) 40 mg PO DAILY #90 tabs 07/03/22 potassium chloride 10 mEq 10 meq PO DAILY PRN weight gain 07/03/22 capsule,extended release #90 caps simvastatin 20 mg tablet 20 mg PO DAILY #90 tabs 07/03/22 Results & Data (ED) Vital Signs Vital Signs - 24 hr 10/18/22 05:46 10/18/22 05:54 10/18/22 05:54 Pulse Rate 110 H Pulse Rhythm Respiratory Rate 19 Respiratory Effort / Characteristics Non-Labored Spontaneous Grunting Respiratory Depth Normal Normal Respiratory Pattern Regular Blood Pressure 172/93 H Blood Pressure Mean 119 Pulse Oximetry 98 96 Oxygen Delivery Method Room Air Room Air Room Air Sepsis Recent Fever Within 48 Hours No Sepsis New/Unexplained Change in Mental Status No Sepsis Action Taken by Nursing No Action Required 10/18/22 05:54 10/18/22 06:02 10/18/22 06:08 Pulse Rate 105 H 104 H Pulse Rhythm Irregular Respiratory Rate 20 Respiratory Effort / Characteristics Spontaneous Grunting Respiratory Depth Respiratory Pattern Blood Pressure Blood Pressure Mean Pulse Oximetry 96 Oxygen Delivery Method Room Air Sepsis Recent Fever Within 48 Hours Sepsis New/Unexplained Change in Mental Status Sepsis Action Taken by Nursing 10/18/22 07:45 10/18/22 06:03 10/18/22 06:30 Pulse Rate 109 H 99 H 93 H Pulse Rhythm Respiratory Rate 22 20 Respiratory Effort / Characteristics Respiratory Depth Respiratory Pattern Blood Pressure 145/71 H 172/93 H 127/88 Blood Pressure Mean 119 101 Pulse Oximetry 98 95 Oxygen Delivery Method Room Air Room Air Sepsis Recent Fever Within 48 Hours Sepsis New/Unexplained Change in Mental Status Sepsis Action Taken by Nursing 10/18/22 07:00 10/18/22 07:30 10/18/22 08:30 Pulse Rate 112 H 98 H 85 Pulse Rhythm Respiratory Rate 20 22 14 Respiratory Effort / Characteristics Respiratory Depth Respiratory Pattern Blood Pressure 123/96 145/71 H Blood Pressure Mean 105 95 Pulse Oximetry 95 96 Oxygen Delivery Method Room Air Room Air Sepsis Recent Fever Within 48 Hours Sepsis New/Unexplained Change in Mental Status Sepsis Action Taken by Nursing 10/18/22 08:40 10/18/22 08:43 10/18/22 08:43 Pulse Rate 88 97 H Pulse Rhythm Respiratory Rate 20 22 Respiratory Effort / Characteristics Respiratory Depth Respiratory Pattern Blood Pressure 127/81 Blood Pressure Mean 96 Pulse Oximetry Oxygen Delivery Method Sepsis Recent Fever Within 48 Hours Sepsis New/Unexplained Change in Mental Status Sepsis Action Taken by Nursing 10/18/22 08:50 10/18/22 09:00 10/18/22 09:00 Pulse Rate 91 H 80 Pulse Rhythm Respiratory Rate 18 19 Respiratory Effort / Characteristics Respiratory Depth Respiratory Pattern Blood Pressure 131/84 Blood Pressure Mean 99 Pulse Oximetry Oxygen Delivery Method Sepsis Recent Fever Within 48 Hours Sepsis New/Unexplained Change in Mental Status Sepsis Action Taken by Custodial Medications Current Medication List: was personally reviewed by me Laboratory Data Attestation: I reviewed the patient's lab results. 10/18/22 06:15 10/18/22 06:15 Lab Results 10/18/22 10/18/22 10/18/22 Range/Units 06:15 06:15 06:15 WBC 15.29 H (4.8-10.8) K/ul RBC 4.95 (4.70-6.10) M/uL Hgb 15.7 (14.0-18.0) g/dl Hct 46.4 (42.0-52.0) % MCV 93.7 (80.0-100.0) fL MCH 31.7 (25.0-34.0) pg MCHC 33.8 (32.0-36.0) g/dL RDW Std Deviation 47.1 H (36.4-46.3) fL RDW Coeff of Jeana 13.7 (11.5-14.5) % Plt Count 119 L (130-400) K/uL MPV 11.8 (9.4-12.4) fL Immature Gran % (Auto) 1.0 % Neut % (Auto) 79.1 % Lymph % (Auto) 7.9 % [place] % (Auto) 9.7 % Eos % (Auto) 2.2 % Baso % (Auto) 0.1 % Neut # (Auto) 12.09 H (1.40-6.50) K/uL Lymph # (Auto) 1.21 (1.2-3.4) K/uL [place] # (Auto) 1.48 H (0.11-0.59) K/uL Eos # (Auto) 0.34 (0-0.50) K/uL Baso # (Auto) 0.02 (0-0.2) K/uL Immature Gran # (Auto) 0.15 (0.01-0.20) K/uL PT 11.6 (9.0-12.0) Seconds INR 1.1 (0.9-1.1) APTT 30.1 (21.0-31.0) Seconds PTT Ratio 1.1 Sodium 136 (136-145) mmol/L Potassium 3.5 (3.5-5.1) mmol/L Chloride 101 (98-107) mmol/L Carbon Dioxide 29 (21-32) mmol/L Anion Gap 6 (3-11) BUN 26 H (6-23) mg/dl Creatinine 1.13 (0.6-1.4) mg/dl Est Cr Clr Drug Dosing 64.8 ml/min Est GFR ( Amer) 71.8 ml/min Est GFR (Non-Af Amer) 61.9 ml/min BUN/Creatinine Ratio 23.0 H (10-20) Glucose 110 H (70-99(Fasting)) mg/dl Calcium 9.2 (8.5-10.1) mg/dl Magnesium 1.6 L (1.7-2.4) mg/dl Total Bilirubin 1.0 (0.2-1.0) mg/dl AST 19 (13-39) U/L ALT 27 (7-52) U/L Alkaline Phosphatase 55 (34-104) U/L Troponin I High Sens 55.7 H* (0-20) pg/ml B-Natriuretic Peptide (0-100) pg/ml Total Protein 6.4 (6.0-8.3) gm/dl Albumin 4.0 (3.4-5.0) gm/dl Globulin 2.4 L (2.5-4.0) gm/dl Albumin/Globulin Ratio 1.7 (0.9-2) SARS-CoV-2, RNA, NAAT (NEGATIVE) 10/18/22 10/18/22 Range/Units 06:15 06:18 WBC (4.8-10.8) K/ul RBC (4.70-6.10) M/uL Hgb (14.0-18.0) g/dl Hct (42.0-52.0) % MCV (80.0-100.0) fL MCH (25.0-34.0) pg MCHC (32.0-36.0) g/dL RDW Std Deviation (36.4-46.3) fL RDW Coeff of Jeana (11.5-14.5) % Plt Count (130-400) K/uL MPV (9.4-12.4) fL Immature Gran % (Auto) % Neut % (Auto) % Lymph % (Auto) % [place] % (Auto) % Eos % (Auto) % Baso % (Auto) % Neut # (Auto) (1.40-6.50) K/uL Lymph # (Auto) (1.2-3.4) K/uL [place] # (Auto) (0.11-0.59) K/uL Eos # (Auto) (0-0.50) K/uL Baso # (Auto) (0-0.2) K/uL Immature Gran # (Auto) (0.01-0.20) K/uL PT (9.0-12.0) Seconds INR (0.9-1.1) APTT (21.0-31.0) Seconds PTT Ratio Sodium (136-145) mmol/L Potassium (3.5-5.1) mmol/L Chloride (98-107) mmol/L Carbon Dioxide (21-32) mmol/L Anion Gap (3-11) BUN (6-23) mg/dl Creatinine (0.6-1.4) mg/dl Est Cr Clr Drug Dosing ml/min Est GFR ( Amer) ml/min Est GFR (Non-Af Amer) ml/min BUN/Creatinine Ratio (10-20) Glucose (70-99(Fasting)) mg/dl Calcium (8.5-10.1) mg/dl Magnesium (1.7-2.4) mg/dl Total Bilirubin (0.2-1.0) mg/dl AST (13-39) U/L ALT (7-52) U/L Alkaline Phosphatase (34-104) U/L Troponin I High Sens (0-20) pg/ml B-Natriuretic Peptide 192 H (0-100) pg/ml Total Protein (6.0-8.3) gm/dl Albumin (3.4-5.0) gm/dl Globulin (2.5-4.0) gm/dl Albumin/Globulin Ratio (0.9-2) SARS-CoV-2, RNA, NAAT NEGATIVE (NEGATIVE) Administered Medications Benzonatate (Benzonatate 100 Mg Capsule) 100 mg PO Q6H PRN PRN Reason: Cough Stop: 11/17/22 11:30 Last Admin: 10/18/22 12:18 Dose: 100 mg Documented By: DRE Potassium Chloride/Sodium Chloride (Normal Saline W/20 Meq Kcl) 20 meq in 1,000 mls @ 80 mls/hr IV .[id number] VICTOR MANUEL Stop: 11/17/22 10:42 Last Admin: 10/18/22 11:50 Dose: 80 mls/hr Documented By: DRE Discontinued Medications Albuterol (Albuterol Hfa 8 Gm Inhaler) 2 puffs INH NOW ONE Stop: 10/18/22 07:04 Last Admin: 10/18/22 07:39 Dose: 2 puffs Documented By: EMERALD Benzonatate (Benzonatate 100 Mg Capsule) 100 mg PO NOW ONE Stop: 10/18/22 07:04 Last Admin: 10/18/22 07:39 Dose: 100 mg Documented By: EMERALD Sodium Chloride (Nss 1000ml) 500 mls @ 999 mls/hr IV .Q31M ONE Stop: 10/18/22 07:33 Last Infusion: 10/18/22 08:26 Dose: 0 mls/hr Documented By: Admin: 10/18/22 07:39 Dose: 999 mls/hr Documented By: EMERALD Magnesium Sulfate/Dextrose (Magnesium Sulfate / D5w) 1 gm in 100 mls @ 100 mls/hr IV NOW STA Stop: 10/18/22 08:32 Last Infusion: 10/18/22 08:46 Dose: 0 mls/hr Documented By: Admin: 10/18/22 07:44 Dose: 100 mls/hr Documented By: EMERALD Ceftriaxone Sodium (Rocephin) 2,000 mg in 70 mls @ 140 mls/hr IV NOW STA Stop: 10/18/22 08:21 Last Infusion: 10/18/22 09:59 Dose: 0 mls/hr Documented By: Admin: 10/18/22 08:53 Dose: 140 mls/hr Documented By: EMERALD Metoprolol Succinate (Metoprolol Succ 50mg Ext Rel Tab) 50 mg PO NOW STA Stop: 10/18/22 07:04 Last Admin: 10/18/22 07:39 Dose: 50 mg Documented By: EMERALD Metoprolol Tartrate (Metoprolol Tartrate 1 Mg/Ml Vial) 5 mg IV NOW STA Stop: 10/18/22 07:34 Last Admin: 10/18/22 07:45 Dose: 5 mg Documented By: EMERALD Imaging Data Radiologist's Impression: Chest X-Ray 10/18/22 06:08 XR chest 1V portable HISTORY: Chest pain, nonspecific COMPARISON: Chest 07/30/2021. FINDINGS: No pneumothorax. There are low lung volumes. The heart is mildly enlarged. There is mild central pulmonary vascular congestion without overt edema. Left basilar linear densities favor subsegmental atelectasis. IMPRESSION: Cardiomegaly with mild congestive change. ACT 112: Negative or not required by law. Electronically signed by: Smith Cottrell M.D. 10/18/2022 7:49 AM Discharge Plan Visit Data Chief Complaint: Shortness of Breath/Dyspnea Stated Complaint: SOB, Weakness, Diarrhea, Cough ED Provider: Jabari Rivera Discharge Problem: Atrial fibrillation with rapid ventricular response, Tachycardia, Weakness, Cough, Leukocytosis, Hypomagnesemia Patient Disposition: Admitted As Inpatient Condition: Fair Discharge Instructions Interventions: ED Discharge Assessment Last Done: 10/18/22 10:25
[2022-10-18] MEDS: NSS + 20MEQ KCL 20 MEQ/1,000 ML BAG IV SCH (11:50)
[2022-10-18] MEDS: BENZONATATE 100 MG CAPSULE PO PRN ×2 (12:18→19:54)
[2022-10-18] MEDS ORDERED: guaiFENesin 600 MG TABCR PO STA (13:21)
[2022-10-18] MEDS: APIXABAN 5 MG TABLET PO SCH (20:26)
[2022-10-18] MEDS ORDERED: MELATONIN 3 MG TAB PO PRN (20:44)
[2022-10-18] MEDS ORDERED: CIPRO 0.3%/DEXAMETHASONE 0.1% OTIC SUSP 7.5ML OT SCH (21:00)
[2022-10-19] MEDS: NSS + 20MEQ KCL 20 MEQ/1,000 ML BAG IV SCH (00:20)
[2022-10-19] MEDS: BENZONATATE 100 MG CAPSULE PO PRN ×2 (01:53→09:00)
[2022-10-19 06:46] LABS: Basophils # (auto) 0.02 K/uL (0-0.2); Basophils % (auto) 0.2 %; Eosinophils # (auto) 0.41 K/uL (0-0.50); Eosinophils % (auto) 3.3 %; Hematocrit (blood only) 43.2 % (42.0-52.0); Hemoglobin 14.7 g/dl (14.0-18.0); Immature Granulocytes # (auto) 0.12 K/uL (0.01-0.20); Lymphocytes # (auto) 1.03 K/uL (1.2-3.4); Lymphocytes % (auto) 8.4 %; Mean Corpuscular Hemoglobin 32.2 pg (25.0-34.0); Mean Corpuscular Volume 94.7 fL (80.0-100.0); Mean Platelet Volume 11.4 fL (9.4-12.4); Monocytes # (auto) 1.34 K/uL (0.11-0.59); Monocytes % (auto) 10.9 %; Neutrophils # (auto) 9.39 K/uL (1.40-6.50); Neutrophils % (auto) 76.2 %; Platelet Count 117 K/uL (130-400); RDW Coefficient of Variation 13.9 % (11.5-14.5); RDW Standard Deviation 47.9 fL (36.4-46.3); Red Blood Count 4.56 M/uL (4.70-6.10); White Blood Count 12.31 K/ul (4.8-10.8)
[2022-10-19 07:07] LABS: Calcium 9.2 mg/dl (8.5-10.1); Potassium 4.4 mmol/L (3.5-5.1)
[2022-10-19 07:13] LABS: BUN Creatinine Ratio 17.7 (10-20); Creatinine Clr Calc Pharmacy 64.3 ml/min; Est GFR (African American) 71.8 ml/min; Est GFR (Non-African American) 61.9 ml/min
[2022-10-19] MEDS: APIXABAN 5 MG TABLET PO SCH (08:59)
[2022-10-19] MEDS ORDERED: DOXAZosin MESYLATE TAB 2 MG TAB PO SCH (09:00)
[2022-10-19] MEDS ORDERED: cefTRIAXone SODIUM 2,000 MG in DEXTROSE 5% 50 ML IV SCH (09:00)
[2022-10-19] MEDS ORDERED: allopurinoL 300 MG TAB PO SCH (09:00)
[2022-10-19] MEDS ORDERED: METOPROLOL SUCC 50MG EXT REL TAB PO SCH (09:00)
--- NOTE | 2022-10-19 10:15 | Discharge Summary ---
Date of Service October 19, 2022 Admission HPI Per Admitting Provider 77-year-old male with several days of productive cough and weakness. He also has had some nausea and diarrhea but no vomiting. No fever. He presents to the ED for evaluation. Clinically he has acute bronchitis and appears to be somewhat volume depleted. He has chronic atrial fibrillation with a somewhat rapid ventricular rate on admission which was corrected with intravenous diltiazem administered by EMS and subsequent intravenous metoprolol administered in the ED. He is receiving magnesium replacement and intravenous Rocephin. He will be placed in observation with IV fluids and continued Rocephin. Sputum culture will be obtained if sputum is produced. Hopefully he will be able to go home tomorrow, October 19. Principal Diagnosis Acute bronchitis, chronic atrial fibrillation with rapid ventricular rate, hypomagnesemia, generalized weakness Discharge Exam General-alert and oriented x3, no fevers, no chills HEENT-head atraumatic and normocephalic, pupils equal and reactive to light, extraocular muscles intact Neck-no lymphadenopathy or thyromegaly, trachea midline Chest-midline rhonchi audible with forced coughing. No inspiratory rales. No dullness to percussion. No wheezing Cardiac-irregular rhythm. Normal rate. Normal S1 and S2 Abdomen-normal bowel sounds, nontender, no hepatosplenomegaly Extremities-no cyanosis, clubbing, or edema Neuro-cranial nerves II through XII intact, motor and sensory function within normal limits, strength symmetrical , no focal deficits Psych-normal affect, normal mood Discharge Data Allergies Allergy/AdvReac Type Severity Reaction Status Date / Time Sulfa (Sulfonamide Allergy Severe RASH, Verified 10/18/22 09:01 Antibiotics) HIVES,SWELLING Consultations 10/18/22 08:06 ED Decision to Admit Stat Hospital Course (1) Acute bronchitis: Treated with Rocephin while hospitalized. Sputum reveals mixed shad. Will discharge home on oral Augmentin. (2) Generalized weakness: Resolved with IV fluid rehydration. Supportive care (3) Atrial fibrillation with rapid ventricular response: He received intravenous diltiazem and metoprolol. Heart rate is now controlled. Continue Eliquis. Continue oral metoprolol (4) Hypomagnesemia: Corrected with parenteral magnesium replacement. Serial labs (5) Congestive heart failure: History of chronic diastolic CHF. No current CHF. Will monitor intake and output (6) HTN (hypertension): Hold doxazosin and olmesartan while hospitalized. Restart at discharge continue metoprolol (7) Dyslipidemia: Continue statin therapy Plan Home today, October 19, on Augmentin for 1 week Total Time Total Time Spent Total Time Spent (In Minutes): 35 minutes Discharge Plan Discharge Items Patient Disposition: Home - Self-Care Reason For Visit: ACUTE BRONCHITIS, WEAKNESS Discharge Diagnosis: Acute bronchitis, generalized weakness, hypomagnesemia, chronic atrial fibrillation with rapid ventricular rate Condition on Discharge: Fair Activity: Resume your previous activity Non-emergency contact: Primary Care Provider Call non-emergency contact if: you have any medication questions and your symptoms worsen Follow-up/Referrals: Khoi Patel MD [Primary Care Provider] - Diet: Heart Healthy Addtl Attending Provider Instructions: Take amoxicillin/Clavulinate ( Augmentin ) for 1 week Pending Studies at Discharge: No Stand-Alone Forms: My m[employer], Smoking Cessation Medications and DC Order Prescriptions: New amoxicillin-pot clavulanate 875-125 mg tablet 1 tab PO BID Qty: 14 0RF metoprolol succinate 50 mg Tablet Extended Release 24 Hr 50 mg PO DAILY Qty: 0 0RF Continued Eliquis 5 mg tablet 5 mg PO BID Qty: 60 11RF allopurinol 300 mg tablet 300 mg PO DAILY Qty: 90 3RF doxazosin 4 mg tablet 6 mg PO DAILY Qty: 180 3RF furosemide [Lasix] 40 mg tablet 40 mg PO DAILY PRN (Reason: weight gain) Qty: 90 3RF olmesartan [Benicar] 40 mg tablet 40 mg PO DAILY Qty: 90 3RF potassium chloride 10 mEq capsule, extended release 10 meq PO DAILY PRN (Reason: weight gain) Qty: 90 3RF simvastatin 20 mg tablet 20 mg PO DAILY Qty: 90 3RF metoprolol succinate 50 mg tablet extended release 24 hr 50 mg PO DAILY Rx Instructions: TAKE 1 TABLET BY MOUTH ONCE DAILY lansoprazole [Prevacid] 30 mg capsule,delayed release(DR/EC) 30 mg PO Q OTHER DAY Discharge Orders: Discharge Order (Routine); Ordered 10/19/22 Ordered By: Pete Lanier Admission Data Admit Date/Time: 10/18/22 09:10 Attending Provider: Pete Lanier Admit Provider: Pete Lanier Primary Care Provider: Khoi Patel Other Providers: Pete Lanier Coding Level of Care Code HOSP INP/OBS DISCH >30 MIN Diagnoses Acute bronchitis J20.9 Generalized weakness R53.1 Atrial fibrillation with rapid ventricular response I48.91 Hypomagnesemia E83.42 Congestive heart failure I50.9 Heart failure chronicity: acute on chronic Heart failure type: unspecified HTN (hypertension) I10 Dyslipidemia E78.5
[2022-10-19] MEDS ORDERED: SIMVASTATIN 20 MG TAB PO SCH (21:00)
== END 2022-10-19 11:40 | disposition home or self-care (01) ==
LOC: 2E 05:54 → ED 05:54 → 2E 10:25

== ENCOUNTER 2025-02-11 19:49 | Observation (INO) ==
--- NOTE | 2025-02-11 20:43 | Emergency Department Note ---
Impression & Plan HTN (hypertension), Heart palpitations, Dizziness, Elevated troponin I level ED Provider Note NAME: LINDA ALVARENGA AGE: 79 SEX: M : 1945 ARRIVES VIA: Walk-In INFORMANT: Patient, ED PROVIDER(S): Alfie Wray DO CHIEF COMPLAINT: Dizziness HPI: The patient is an 79-year-old male who presented to the emergency department for an evaluation of dizziness. The patient states he has been noticing his blood pressure has been up and he has been feeling very anxious. He also feels though he may pass out. The patient denies having any chest pain or difficulty breathing. He denies having any lower extremity swelling or pain. He has been compliant with his outpatient medication regiment which does include antihypertensive medication. The patient has not been seen by his family doctor recently. ROS: See above HPI for pertinent positives & negatives. A total of 10 systems reviewed and were otherwise negative. PAST MEDICAL HISTORY: See Below PAST SURGICAL HISTORY: See Below FAMILY HISTORY: See Below SOCIAL HISTORY: See Below HOME MEDICATIONS: See Below ALLERGIES: See Below VITALS: See Below PHYSICAL EXAMINATION: GENERAL: Patient is awake alert in no acute distress patient is resting comfortably and showing no signs of anxiety EYES: The conjunctivae are clear. The pupils are round and reactive. EARS, NOSE, MOUTH AND THROAT: The nose is without any evidence of any deformity. NECK: The neck is nontender and supple. RESPIRATORY: Normal respiratory effort is noted there is no evidence of wheezing rhonchi or rales CARDIOVASCULAR: Ectopy was noted to auscultation. There is no definite murmur. GASTROINTESTINAL: The abdomen is soft. Abdomen is nontender. MUSCULOSKELETAL/EXTREMITIES: There is no evidence of gross deformity full range of motion is noted in the hips and shoulders. SKIN: There is no obvious evidence of any rash. There are no petechiae, pallor or cyanosis noted. NEUROLOGIC: Patient is awake alert and oriented x3 strength is symmetric patellar reflexes are 2+ bilaterally MEDICAL DECISION MAKING: The patient is an 79-year-old male who presented to the emergency department with multiple complaints. The patient has been experiencing palpitations as well as dizziness. He feels though he may pass out. On the bus driver/monitor he has been having episodes of PACs but he does have an underlying bundle branch block pattern. I discussed the patient's laboratory and radiographic studies with him. Given his findings of an elevated troponin I do feel the patient would benefit from inpatient monitoring as well as possibly further testing. For this reason I discussed his condition with the on-call [facility] hospitalist. They have agreed to evaluate the patient in the emergency department for further management and disposition. Triage Nursing notes reviewed. Prior medical records reviewed Vital Signs: reviewed and remarkable for hypertension. Differential diagnosis: Benign hypertension, hypertensive emergency, cardiovascular pathology, toxicologic, pheochromocytoma, electrolyte abnormality, renal disease, endorgan damage, as well as other pathologies. ER treatment provided: See below Diagnostics interpreted by me: ECG: EKG was obtained in the emergency department. My interpretation is sinus rhythm at 62 bpm. First-degree AV block is noted. Left bundle-branch block pattern was noted. PACs were noted. This was compared to a tracing from October 18, 2022. No changes were noted. Cardiac Monitoring: An order was placed for continuous cardiac monitoring. The monitor shows a rate of 54 bpm with sinus rhythm. Frequent PACs were noted. Laboratory studies: As stated above and show below. Imaging studies: See below. Radiographic imaging was reviewed by myself Consultation(s): I discussed this case with Dr. Khan who is on-call for the [facility] hospitalist group. Past Med/Surg History Problem List (Updated 02/12/25 @ 00:21 by Alfie Wray DO) Elevated troponin I level (Acute) Dizziness (Acute) Heart palpitations (Acute) HTN (hypertension) (Acute) Carpal tunnel syndrome on both sides Sensory polyneuropathy Nocturnal hypoxemia Complex sleep apnea syndrome Low magnesium level Low vitamin B12 level Generalized weakness (Acute) (HFpEF) heart failure with preserved ejection fraction Dyslipidemia Lumbar disc disease LVH (left ventricular hypertrophy) Diverticulosis (Chronic) Ventral hernia (Chronic) PVCs (premature ventricular contractions) (Chronic) Obstructive sleep apnea (Chronic) 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) Left bundle branch block (Chronic) Inguinal hernia (Chronic) Gout, joint (Chronic) Degenerative joint disease, 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 (Chronic) Chronic reflux esophagitis (Chronic) Allergic rhinitis (Chronic) Medical History Atrial fibrillation ETD (eustachian tube dysfunction) Acute on chronic diastolic CHF (congestive heart failure) Painful total knee replacement, left Congestive heart failure Painful total knee replacement, left Olecranon bursitis Trochanteric bursitis Clostridium difficile infection Hemangioendothelioma of liver Esophageal stricture Ulcer of esophagus with bleeding Acute kidney injury Hypomagnesemia Surgical History S/p bilateral myringotomy with tube placement History of bilateral knee replacement H/O colonoscopy (~01/2017) S/P tonsillectomy Hx of total knee arthroplasty Family History Family/Other Coronary heart disease Environmental allergies per patient-"All of us" Mother Hearing loss Hypertension Breast cancer Father Cardiac disorder Hypertension Heart disease of a heart attack Other No family history of adverse response to anesthesia No family history of bleeding disorder Social History Smoking Status: Never smoker Tobacco Type: Cigarettes, Pipe and Cigars Age Started Using Tobacco: 15; Age Quit Using Tobacco: 48; packs per day: 2; Second Hand Exposure: No; Do You Dip or Chew Tobacco: No; Hx Alcohol Use: Yes (2 drinks daily - martini's) Alcohol type: beer, wine and hard liquor Alcohol Intake Frequency: 4 or More x per/Week Alcohol Intake Frequency Comment: 1 glass of wine or a martini per day Hx Substance Use: No Preferred Language: Sinhala Communication Ability: Effective County Nurse Required: No Beliefs That Will Affect Care: None marital status: / Current Living Situation: Alone current occupational status: retired How many Children do You have: 2 Feels Safe at Home: Yes Childhood Exposure to Second-Hand Smoke: No Dental Care, Regularly: Yes Physical Activity Frequency: Does not Exercise Seatbelt Use: always Sunscreen Use: No Assistive Devices: Glasses Allergies Allergies Allergy/AdvReac Type Severity Reaction Status Date / Time Sulfa (Sulfonamide Allergy Severe RASH, Verified 02/11/25 21:04 Antibiotics) HIVES,SWELLING Home Meds Home Medications Medication Instructions Recorded Confirmed doxazosin 4 mg tablet 6 mg PO DAILY 10/03/24 02/11/25 ipratropium bromide 21 mcg (0.03 2 spray intranasal BID PRN Nasal 10/03/24 02/11/25 %) nasal spray Congestion lansoprazole 30 mg capsule,delayed 30 mg PO Q OTHER DAY 10/03/24 02/11/25 release olmesartan 40 mg tablet (Benicar) 40 mg PO DAILY 10/03/24 02/11/25 mecobalamin (vitamin B12) 1,000 1,000 mcg sublingual DAILY 12/21/24 02/11/25 mcg disintegrating tablet,sublingual allopurinol 300 mg tablet 300 mg PO DAILY 02/11/25 02/11/25 apixaban 5 mg tablet (Eliquis) 5 mg PO BID 02/11/25 02/11/25 ashwagandha extract 500 mg capsule 500 mg PO DAILY PRN NEEDED PER 02/11/25 02/11/25 PT multivitamin 1 tab PO DAILY 02/11/25 02/11/25 Previous Rx's Medication Instructions Recorded potassium chloride 10 mEq 10 meq PO DAILY PRN Take with 09/05/24 capsule,extended release Lasix #90 caps simvastatin 20 mg tablet 20 mg PO DAILY #90 tabs 09/05/24 metoprolol succinate 25 mg 25 mg PO DAILY #90 tabs 09/28/24 tablet,extended release 24 hr furosemide 40 mg tablet (Lasix) 40 mg PO DAILY PRN weight gain #90 01/24/25 tabs Results & Data (ED) Vital Signs Vital Signs - 24 hr 02/11/25 19:53 02/11/25 20:03 02/11/25 20:03 Temperature 36.6 C Temperature Source Temporal Artery Scan Pulse Rate 62 67 69 Pulse Rate from SpO2 Sensor 69 Respiratory Rate 17 19 Respiratory Effort / Characteristics Non-Labored Spontaneous Respiratory Depth Normal Respiratory Pattern Regular Blood Pressure 172/87 H 181/84 H Blood Pressure Mean 115 116 Pulse Oximetry 95 97 Oxygen Delivery Method Room Air Sepsis Recent Fever Within 48 Hours No Sepsis New/Unexplained Change in Mental Status N/A Sepsis Action Taken by Nursing No Action Required 02/11/25 20:22 02/11/25 21:39 02/11/25 22:00 Temperature Temperature Source Pulse Rate 60 54 L Pulse Rate from SpO2 Sensor 58 L 53 L Respiratory Rate 15 18 Respiratory Effort / Characteristics Respiratory Depth Respiratory Pattern Blood Pressure 187/97 H 181/78 H Blood Pressure Mean 127 123 Pulse Oximetry 95 96 96 Oxygen Delivery Method Room Air Sepsis Recent Fever Within 48 Hours Sepsis New/Unexplained Change in Mental Status Sepsis Action Taken by [facility] Medications Current Medication List: was personally reviewed by al Laboratory Data Attestation: I reviewed the patient's lab results. 02/11/25 20:45 02/11/25 20:45 Lab Results 02/11/25 02/11/25 02/11/25 Range/Units 20:45 22:43 22:44 WBC 6.73 (4.8-10.8) K/ul RBC 4.46 L (4.70-6.10) M/uL Hgb 14.3 (14.0-18.0) g/dl Hct 42.4 (42.0-52.0) % MCV 95.1 (80.0-100.0) fL MCH 32.1 (25.0-34.0) pg MCHC 33.7 (32.0-36.0) g/dL RDW Std Deviation 47.3 H (36.4-46.3) fL RDW Coeff of Jeana 13.6 (11.5-14.5) % Plt Count 156 (130-400) K/uL MPV 12.3 (9.4-12.4) fL Immature Gran % (Auto) 0.4 % Neut % (Auto) 72.0 % Lymph % (Auto) 16.3 % Steele % (Auto) 8.5 % Eos % (Auto) 2.5 % Baso % (Auto) 0.3 % Neut # (Auto) 4.84 (1.40-6.50) K/uL Lymph # (Auto) 1.10 L (1.20-3.40) K/uL Steele # (Auto) 0.57 (0.11-0.59) K/uL Eos # (Auto) 0.17 (0.00-0.50) K/uL Baso # (Auto) 0.02 (0.00-0.20) K/uL Immature Gran # (Auto) 0.03 (0.01-0.20) K/uL Sodium 138 (136-145) mmol/L Potassium 4.1 (3.5-5.1) mmol/L Chloride 103 (98-107) mmol/L Carbon Dioxide 27 (21-32) mmol/L Anion Gap 8 (3-11) BUN 33 H (6-23) mg/dl Creatinine 1.24 (0.6-1.4) mg/dl Est Cr Clr Drug Dosing 54.4 ml/min eGFR 58.78 BUN/Creatinine Ratio 26.6 H (10-20) Glucose 99 (70-99(Fasting)) mg/dl Calcium 10.0 (8.6-10.3) mg/dl Total Bilirubin 0.7 (0.2-1.0) mg/dl AST 20 (13-39) U/L ALT 16 (7-52) U/L Alkaline Phosphatase 55 (34-104) U/L Troponin I High Sens 33.2 H 37.7 H (0-20) pg/ml Total Protein 6.7 (6.0-8.3) gm/dl Albumin 4.1 (3.4-5.0) gm/dl Globulin 2.6 (2.5-4.0) gm/dl Albumin/Globulin Ratio 1.6 (0.9-2) TSH 2.392 (0.300-4.500) uIu/ml Urine Color Yellow Urine Appearance Clear (Clear) Urine pH 6.0 (4.5-7.5) Ur Specific [place] 1.021 (1.000-1.030) Urine Protein Trace H (Negative) Urine Glucose (UA) Negative (Negative) Urine Ketones Trace H (Negative) Urine Blood Negative (Negative) Urine Nitrite Negative (Negative) Urine Bilirubin Negative (Negative) Urine Urobilinogen Negative (Negative) Ur Leukocyte Esterase Negative (Negative) Urine WBC (Auto) 0-5 (0-5) /hpf Urine RBC (Auto) 0-2 (0-2) /hpf U Hyaline Cast (Auto) 0-2 (0-2) /lpf U Epithel Cells (Auto) 0-2 (0-2) /hpf Urine Bacteria (Auto) None Seen (None Seen) Urine Comment Administered Medications Discontinued Medications Lorazepam (Lorazepam 2 Mg/1 Ml Vial) 0.5 mg IV NOW STA Stop: 02/11/25 20:38 Last Admin: 02/11/25 21:00 Dose: 0.5 mg Documented By: LAITH Imaging Data Attestation: I personally reviewed and interpreted this imaging study as follows: My Impression: 1 view chest x-ray was obtained in the emergency department. My interpretation is no free air or definite infiltrate, final report below. Radiologist's Impression: Chest X-Ray 02/11/25 20:22 Exam(s): XR CXR 1 VIEW EXAM: XR Chest, 1 View CLINICAL HISTORY: Reason for exam: dizzy, htn. TECHNIQUE: Frontal view of the chest. COMPARISON: 10/18/2022 FINDINGS: Lungs: No consolidation. No overt edema. Pleural space: No pleural effusion. No pneumothorax. Heart: Unremarkable. No cardiomegaly. IMPRESSION: No acute cardiopulmonary abnormality. Electronically signed by: Jeremy Sorto MD 02/11/25 22:[address] 02/11/25 20:35 Exam(s): CT HEAD Without Contrast EXAM: CT Head Without Intravenous Contrast CLINICAL HISTORY: Reason for exam: dizzy. TECHNIQUE: Axial computed tomography images of the head/brain without intravenous contrast. CTDI is 35.79 mGy and DLP is 703.85 mGy-cm. Automated exposure control was utilized for the study. A dose lowering technique was utilized adhering to the principles of ALARA. COMPARISON: Head CT 01/16/2018 FINDINGS: Brain: No hemorrhage, extra-axial fluid collection, mass effect, or edema. Ventricles: Unremarkable. Bones/joints: Unremarkable. No fracture. Soft tissues: Unremarkable. Sinuses: No acute sinusitis. Mastoid air cells: Unremarkable as visualized. IMPRESSION: 1. No acute intracranial abnormality. Electronically signed by: Jeremy Sorto MD 02/11/25 22:30 PM Discharge Plan Visit Data Chief Complaint: Hypertension Stated Complaint: HIGH BP, DIZZY ED Provider: Alfie Wary Discharge Problem: HTN (hypertension), Heart palpitations, Dizziness, Elevated troponin I level Patient Disposition: Being Evaluated by Hospitalist Condition: Fair Forms Stand Alone Forms: [facility] Prescriptions Prescriptions: No Action potassium chloride 10 mEq capsule, extended release 10 meq PO DAILY PRN (Reason: Take with Lasix) Qty: 90 3RF simvastatin 20 mg tablet 20 mg PO DAILY Qty: 90 3RF metoprolol succinate 25 mg tablet extended release 24 hr 25 mg PO DAILY Qty: 90 3RF furosemide [Lasix] 40 mg tablet 40 mg PO DAILY PRN (Reason: weight gain) Qty: 90 3RF mecobalamin (vitamin B12) 1,000 mcg tablet,disintegrating 1,000 mcg sublingual DAILY Rx Instructions: place tablet under tongue and allow to dissolve for at least30 secs before swallowing doxazosin 4 mg tablet 6 mg PO DAILY ipratropium bromide 21 mcg (0.03 %) spray,non-aerosol 2 spray intranasal BID PRN (Reason: Nasal Congestion) Rx Instructions: USE 1-2 SPRAYS EACH NOSTRIL 1-2 TIMES DAILY. lansoprazole 30 mg capsule,delayed release(DR/EC) 30 mg PO Q OTHER DAY Dose Instruction: TAKE 1 CAPSULE EVERY OTHER DAY olmesartan [Benicar] 40 mg tablet 40 mg PO DAILY multivitamin Tablet 1 tab PO DAILY ashwagandha extract 500 mg Capsule 500 mg PO DAILY PRN (Reason: NEEDED PER PT) allopurinol 300 mg tablet 300 mg PO DAILY Eliquis 5 mg tablet 5 mg PO BID Referrals Referrals: Megan Grey DO [Primary Care Provider] -
[2025-02-11] MEDS: LORazepam 2 MG/1 ML VIAL IV STA (21:00)
[2025-02-11 21:22] LABS: Alanine Aminotransferase 16 U/L (7-52); Albumin Globulin Ratio 1.6 (0.9-2); Albumin Level 4.1 gm/dl (3.4-5.0); Alkaline Phosphatase 55 U/L (34-104); Anion Gap 8 (3-11); Aspartate Aminotransferase 20 U/L (13-39); BUN Creatinine Ratio 26.6 (10-20); Bilirubin,Total 0.7 mg/dl (0.2-1.0); Blood Urea Nitrogen 33 mg/dl (6-23); Carbon Dioxide 27 mmol/L (21-32); Chloride 103 mmol/L (98-107); Creatinine Clr Calc Pharmacy 54.4 ml/min; Globulin 2.6 gm/dl (2.5-4.0); Glucose 99 mg/dl (70-99(Fasting)); Potassium 4.1 mmol/L (3.5-5.1); Sodium 138 mmol/L (136-145); Total Protein 6.7 gm/dl (6.0-8.3)
[2025-02-11 21:28] LABS: Troponin I High Sensitivity 33.2 pg/ml (0-20)
[2025-02-11 21:37] LABS: Thyroid Stimulating Hormone 2.392 uIu/ml (0.300-4.500)
[2025-02-11 21:44] LABS: Hematocrit (blood only) 42.4 % (42.0-52.0); Hemoglobin 14.3 g/dl (14.0-18.0); Mean Corpuscular Hemoglobin 32.1 pg (25.0-34.0); Mean Corpuscular Hgb Conc 33.7 g/dL (32.0-36.0); Mean Corpuscular Volume 95.1 fL (80.0-100.0); Mean Platelet Volume 12.3 fL (9.4-12.4); Platelet Count 156 K/uL (130-400); RDW Coefficient of Variation 13.6 % (11.5-14.5); RDW Standard Deviation 47.3 fL (36.4-46.3); Red Blood Count 4.46 M/uL (4.70-6.10); White Blood Count 6.73 K/ul (4.8-10.8)
[2025-02-11 21:45] LABS: Basophils # (auto) 0.02 K/uL (0.00-0.20); Basophils % (auto) 0.3 %; Eosinophils # (auto) 0.17 K/uL (0.00-0.50); Eosinophils % (auto) 2.5 %; Immature Granulocytes # (auto) 0.03 K/uL (0.01-0.20); Immature Granulocytes % (auto) 0.4 %; Lymphocytes % (auto) 16.3 %; Monocytes # (auto) 0.57 K/uL (0.11-0.59); Monocytes % (auto) 8.5 %; Neutrophils # (auto) 4.84 K/uL (1.40-6.50)
[2025-02-11 22:14] VITALS: RESP 18
--- NOTE | 2025-02-11 22:17 | XRay Report ---
Exam(s): XR CXR 1 VIEW EXAM: XR Chest, 1 View CLINICAL HISTORY: Reason for exam: dizzy, htn. TECHNIQUE: Frontal view of the chest. COMPARISON: 10/18/2022 FINDINGS: Lungs: No consolidation. No overt edema. Pleural space: No pleural effusion. No pneumothorax. Heart: Unremarkable. No cardiomegaly. IMPRESSION: No acute cardiopulmonary abnormality. Electronically signed by: Jeremy Sorto MD 02/11/25 22:16 PM
--- NOTE | 2025-02-11 22:31 | CT Scan Report ---
Exam(s): CT HEAD Without Contrast EXAM: CT Head Without Intravenous Contrast CLINICAL HISTORY: Reason for exam: dizzy. TECHNIQUE: Axial computed tomography images of the head/brain without intravenous contrast. CTDI is 35.79 mGy and DLP is 703.85 mGy-cm. Automated exposure control was utilized for the study. A dose lowering technique was utilized adhering to the principles of ALARA. COMPARISON: Head CT 01/16/2018 FINDINGS: Brain: No hemorrhage, extra-axial fluid collection, mass effect, or edema. Ventricles: Unremarkable. Bones/joints: Unremarkable. No fracture. Soft tissues: Unremarkable. Sinuses: No acute sinusitis. Mastoid air cells: Unremarkable as visualized. IMPRESSION: 1. No acute intracranial abnormality. Electronically signed by: Jeremy Sorto MD 02/11/25 22:30 PM
[2025-02-11 22:59] LABS: Appearance Urine Clear (Clear); Bacteria Urine Automated None Seen (None Seen); Bilirubin Urine Negative (Negative); Blood Urine Negative (Negative); Cast Urine Automated 0-2 /lpf (0-2); Color Urine Yellow; Epithelial Cell Urine Auto 0-2 /hpf (0-2); Glucose Urine UA Negative (Negative); Ketones Urine Trace (Negative); Leukocyte Esterase Urine Negative (Negative); Nitrite Urine Negative (Negative); Protein Urine Trace (Negative); RBC Urine Automated 0-2 /hpf (0-2); Specific Gravity Urine 1.021 (1.000-1.030); Urobilinogen Urine Negative (Negative); WBC Urine Automated 0-5 /hpf (0-5)
--- NOTE | 2025-02-12 00:37 | History & Physical Report ---
Date of Service February 12, 2025 Assessment & Plan (1) Dizziness: (2) HTN (hypertension): (3) Elevated troponin I level: Plan 79-year-old male PMHx HTN Hypercholesterolemia, MR, Moderate LVH, LBBB, A-Fib, HFpEF, Generalized Weakness, Complex Sleep Apnea Syndrome, and Gout presenting for elevated blood pressure readings and dizziness for the past week. ED evaluation reveals no leukocytosis, stable H&H; CMP grossly unremarkable with exception of BUN 33 and ratio 26.6; troponin 33.2, and then on repeat 37.7; TSH is 2.392; UA is negative; CXR without acute findings; head CT without acute findings; EKG sinus rhythm with a first-degree AV block and PACs as well as LAD and LBBB at 62 bpm.; Provided with lorazepam 0.5 mg IV in ED. #Dizziness/HTN Presenting with dizziness with associated elevated blood pressure readings for the past week. Does admit to having some palpitations at times. With history of A-fib. For patient's hypertension, he normally takes metoprolol and olmesartan. Patient does follow with cardiology, most recent visit being 025. Also follows with PCP, most recent visit 12/21/2024 where he was recommended to partake in PT for his complaint of weakness. Patient was evaluated by PT. Recommendations were skilled rehabilitation at that time. He did have imaging of his back in September 2024 which revealed degenerative changes of the lumbar vertebrae, sacroiliac joints, and a wedge compression of the L1 vertebra. At this time, he has no neurological deficits, no indications of an infection, and history is minimally suggestive. Pt does have bradycardia, ? if this is leading to episodes of dizziness. Anxiety possibly also increasing BP. Low suspicion for CVA or ACS, no CP. ? doxazosin leading to some component of dizziness. R/o arrhythmia/afib causing dizziness and elevated trop. - CBC without leukocytosis, stable H&H; CMP grossly unremarkable; troponin 33.2, 37.7 on repeat - trend trop x 1 - Pending ESR, CRP, vitamin B12 - CXR and head CT without acute findings - EKG sinus rhythm with 1st degree AV block and PACs - Echo 06/2024 EF 55 to 60%, mild concentric LVH - pending repeat - Fall precautions - Orthostatic vitals pending - Continue home antihypertensives - Can add Lorazepam 0.25mg IV for severe anxiety - consider daily medication if utilized - Will utilize home medications for BP control while able, if SBP > 200, will add IV option but with caution given low HR - Consider inpatient PT/OT #Elevated Troponin No chest pain, does have WOODS; Follows with cardiology. - Troponin 32, repeat 37.7 - repeat x 1 - EKG sinus with 1st degree block, without ischemic changes - Likely 2/2 demand ischemia #Afib- Eliquis, metoprolol - continue #HFpEF- Dry weight 230lbs, does not appear to be in HF exacerbation at this ti me; metoprolol, furosemide prn - continue #GERD- Lansoprazole - continue #SANTA- CPAP HS #Gout- Allopurinol - continue #BPH- Doxazosin - continue Dispo: Obs, med/tele VTE Prophylaxis: Eliquis This document was dictated utilizing [employer] Please excuse any grammatical errors that may be secondary to use of this software. Admission and Anticipated Discharge Date Admission Date: 02/12/2025 History of Present Illness Chief Complaint: Dizziness, weakness Primary Care Provider: Megan Grey DO 79-year-old male PMHx HTN Hypercholesterolemia, MR, Moderate LVH, LBBB, A-Fib, HFpEF, Generalized Weakness, Complex Sleep Apnea Syndrome, and Gout presenting for elevated blood pressure readings and dizziness for the past week. Patient states that on the day [employer] his blood pressure in the morning was 189/103, and he was very anxious regarding this. States that he does take his medications as prescribed. He has been experiencing some dizziness, feeling off balance and as though he may fall over. He states that this happens at any time, not just with changing from a sitting to standing position. He does not have any chest pain or headaches. He does get shortness of breath with exertion only. States that his last dose of Lasix was approximately 3 days ago and he is back at his dry weight. He has bilateral leg weakness which has been ongoing and he follows with his PCP and PT for. He states that his anxiety is higher than normal stating that he is "worried about taking care of the house." Patient denies any prolonged outside exposure, no known tick bites. No cough. He has no fever or chills. There are no neurological deficits, he has not had any falls, and no history of such. Patient took his daily medications. States that he always has a low heart rate because he was involved in multiple sports when he was younger to include running, tennis, baseball, and softball. Patient does live alone, stating his 15 years ago. ED evaluation reveals no leukocytosis, stable H&H; CMP grossly unremarkable with exception of BUN 33 and ratio 26.6; troponin 33.2, and then on repeat 37.7; TSH is 2.392; UA is negative; CXR without acute findings; head CT without acute findings; EKG sinus rhythm with a first-degree AV block and PACs as well as LAD and LBBB at 62 bpm.; Provided with lorazepam 0.5 mg IV in ED. Please see Dr. Khan's attestation for adjustments/additions to treatment plan. Allergies Allergy/AdvReac Type Severity Reaction Status Date / Time Sulfa (Sulfonamide Allergy Severe RASH, Verified 02/11/25 21:04 Antibiotics) HIVES,SWELLING Home Medications Medication Instructions Recorded Confirmed Type potassium chloride 10 mEq 10 meq PO DAILY PRN Take with 09/05/24 02/11/25 Rx capsule,extended release Lasix #90 caps simvastatin 20 mg tablet 20 mg PO DAILY #90 tabs 09/05/24 02/11/25 Rx metoprolol succinate 25 mg 25 mg PO DAILY #90 tabs 09/28/24 02/11/25 Rx tablet,extended release 24 hr doxazosin 4 mg tablet 6 mg PO DAILY 10/03/24 02/11/25 History ipratropium bromide 21 mcg (0.03 2 spray intranasal BID PRN Nasal 10/03/24 02/11/25 History %) nasal spray Congestion lansoprazole 30 mg capsule,delayed 30 mg PO Q OTHER DAY 10/03/24 02/11/25 History release mecobalamin (vitamin B12) 1,000 1,000 mcg sublingual DAILY 12/21/24 02/11/25 History mcg disintegrating tablet,sublingual furosemide 40 mg tablet (Lasix) 40 mg PO DAILY PRN weight gain #90 01/24/25 02/11/25 Rx tabs allopurinol 300 mg tablet 300 mg PO DAILY 02/11/25 02/11/25 History apixaban 5 mg tablet (Eliquis) 5 mg PO BID 02/11/25 02/11/25 History ashwagandha extract 500 mg capsule 500 mg PO DAILY PRN NEEDED PER 02/11/25 02/11/25 History PT multivitamin 1 tab PO DAILY 02/11/25 02/11/25 History amlodipine 5 mg tablet (Norvasc) 5 mg PO DAILY #30 tabs 02/12/25 Rx lorazepam 0.5 mg tablet 0.5 mg PO Q8H PRN anxiety #12 tabs 02/12/25 Rx Past Med/Surg History Problem List Elevated troponin I level (Acute) Dizziness (Acute) Heart palpitations (Acute) HTN (hypertension) (Acute) Carpal tunnel syndrome on both sides Sensory polyneuropathy Nocturnal hypoxemia Complex sleep apnea syndrome Low magnesium level Low vitamin B12 level Generalized weakness (Acute) (HFpEF) heart failure with preserved ejection fraction Dyslipidemia Lumbar disc disease LVH (left ventricular hypertrophy) Diverticulosis (Chronic) Ventral hernia (Chronic) PVCs (premature ventricular contractions) (Chronic) Obstructive sleep apnea (Chronic) 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) Left bundle branch block (Chronic) Inguinal hernia (Chronic) Gout, joint (Chronic) Degenerative joint disease, 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 (Chronic) Chronic reflux esophagitis (Chronic) Allergic rhinitis (Chronic) Medical History Atrial fibrillation ETD (eustachian tube dysfunction) Acute on chronic diastolic CHF (congestive heart failure) Painful total knee replacement, left Congestive heart failure Painful total knee replacement, left Olecranon bursitis Trochanteric bursitis Clostridium difficile infection Hemangioendothelioma of liver Esophageal stricture Ulcer of esophagus with bleeding Acute kidney injury Hypomagnesemia Surgical History S/p bilateral myringotomy with tube placement History of bilateral knee replacement H/O colonoscopy (~01/2017) S/P tonsillectomy Hx of total knee arthroplasty Family History Family/Other Coronary heart disease Environmental allergies per patient-"All of us" Mother Hearing loss Hypertension Breast cancer Father Cardiac disorder Hypertension Heart disease of a heart attack Other No family history of adverse response to anesthesia No family history of bleeding disorder Social History Smoking Status: Former smoker Tobacco Type: Cigarettes, Pipe and Cigars Age Started Using Tobacco: 15; Age Quit Using Tobacco: 48; packs per day: 2; Second Hand Exposure: No; Do You Dip or Chew Tobacco: No; Hx Alcohol Use: Yes Alcohol type: hard liquor Alcohol Intake Frequency: 4 or More x per/Week Alcohol Intake Frequency Comment: 1 glass of wine or a martini per day Hx Substance Use: No Preferred Language: Urdu Communication Ability: Effective Sugar Trucker Required: No Beliefs That Will Affect Care: None marital status: / Current Living Situation: Alone current occupational status: retired How many Children do You have: 2 Feels Safe at Home: Yes Childhood Exposure to Second-Hand Smoke: No Dental Care, Regularly: Yes Physical Activity Frequency: Does not Exercise Seatbelt Use: always Sunscreen Use: No Assistive Devices: Cane and CPAP Review of Systems Review of Systems: All systems reviewed & are unremarkable except as noted in Subjective Physical Exam Physical Exam: General: No acute distress Skin: Warm and dry Head: Normocephalic, atraumatic Eyes: PERRL, conjunctivae clear, sclera non-icteric ENT: External ear and ear canal without swelling; nose atraumatic; good dentition, tongue normal appearance, pharynx normal Neck: Supple, no LAD Cardio: RRR, no M/G/R, S1 and S2 normal Resp: No respiratory distress, Lungs CTA in all lobes bilaterally, no wheezes, rales, or rhonchi Abdomen: Soft, symmetric, nontender; No masses or hepatosplenomegaly; Bowel sounds normoactive MSK: No deformities; pulses palpable and equal; trace pitting edema BLE. Neuro: Awake, alert; Sensation intact bilaterally; CN grossly intact, no neurological deficits Psych: Appropriate mood and affect; good judgement and insight. Results & Data Results & Data Vital Signs (Past 12 Hours) Vital Signs Temp Pulse Resp BP Pulse Ox O2 Del Method 02/11/25 22:00 54 L 18 181/78 H 96 02/11/25 21:39 60 15 187/97 H 96 02/11/25 20:22 95 Room Air 02/11/25 20:03 69 19 181/84 H 97 02/11/25 20:03 67 02/11/25 19:53 36.6 C 62 17 172/87 H 95 Room Air Laboratory Results 02/11/25 02/11/25 02/11/25 22:44 22:43 20:45 WBC 6.73 RBC 4.46 L Hgb 14.3 Hct 42.4 MCV 95.1 MCH 32.1 MCHC 33.7 RDW Std Deviation 47.3 H RDW Coeff of Jeana 13.6 Plt Count 156 MPV 12.3 Immature Gran % (Auto) 0.4 Neut % (Auto) 72.0 Lymph % (Auto) 16.3 Perry % (Auto) 8.5 Eos % (Auto) 2.5 Baso % (Auto) 0.3 Neut # (Auto) 4.84 Lymph # (Auto) 1.10 L Perry # (Auto) 0.57 Eos # (Auto) 0.17 Baso # (Auto) 0.02 Immature Gran # (Auto) 0.03 Sodium 138 Potassium 4.1 Chloride 103 Carbon Dioxide 27 Anion Gap 8 BUN 33 H Creatinine 1.24 Est Cr Clr Drug Dosing 54.4 eGFR 58.78 BUN/Creatinine Ratio 26.6 H Glucose 99 Calcium 10.0 Total Bilirubin 0.7 AST 20 ALT 16 Alkaline Phosphatase 55 Troponin I High Sens 37.7 H 33.2 H Total Protein 6.7 Albumin 4.1 Globulin 2.6 Albumin/Globulin Ratio 1.6 TSH 2.392 Urine Color Yellow Urine Appearance Clear Urine pH 6.0 Ur Specific Ward 1.021 Urine Protein Trace H Urine Glucose (UA) Negative Urine Ketones Trace H Urine Blood Negative Urine Nitrite Negative Urine Bilirubin Negative Urine Urobilinogen Negative Ur Leukocyte Esterase Negative Urine WBC (Auto) 0-5 Urine RBC (Auto) 0-2 U Hyaline Cast (Auto) 0-2 U Epithel Cells (Auto) 0-2 Urine Bacteria (Auto) None Seen Urine Comment Diagnostic Findings Chest X-Ray 02/11/25 20:22 Exam(s): XR CXR 1 VIEW EXAM: XR Chest, 1 View CLINICAL HISTORY: Reason for exam: dizzy, htn. TECHNIQUE: Frontal view of the chest. COMPARISON: 10/18/2022 FINDINGS: Lungs: No consolidation. No overt edema. Pleural space: No pleural effusion. No pneumothorax. Heart: Unremarkable. No cardiomegaly. IMPRESSION: No acute cardiopulmonary abnormality. Electronically signed by: Jeremy Sorto MD 02/11/25 22:[address] 02/11/25 20:35 Exam(s): CT HEAD Without Contrast EXAM: CT Head Without Intravenous Contrast CLINICAL HISTORY: Reason for exam: dizzy. TECHNIQUE: Axial computed tomography images of the head/brain without intravenous contrast. CTDI is 35.79 mGy and DLP is 703.85 mGy-cm. Automated exposure control was utilized for the study. A dose lowering technique was utilized adhering to the principles of ALARA. COMPARISON: Head CT 01/16/2018 FINDINGS: Brain: No hemorrhage, extra-axial fluid collection, mass effect, or edema. Ventricles: Unremarkable. Bones/joints: Unremarkable. No fracture. Soft tissues: Unremarkable. Sinuses: No acute sinusitis. Mastoid air cells: Unremarkable as visualized. IMPRESSION: 1. No acute intracranial abnormality. Electronically signed by: Jeremy Sorto MD 02/11/25 22:30 PM Medications Administered Lorazepam 0.5 mg IV ECG Additional Comments: Sinus rhythm with first-degree AV block and PACs, LAD, LBBB 62 bpm, IL 246, QRS 152, QT/QTc 440/450, PRT 62/-55/98 Code Status & VTE Plan Code Status DNR/DNI Supervising Physician Co-Signing Physician Notes Attending Attestation and Admit Note: Pt seen/examined, chart reviewed, admit care plan d/w GO Boss. I agree w/ the herrmann components of her admission documentation. 79yo male with HTN, Hyperlipidemia, chronic LBBB, A-Fib, chronic HFpEF, Generalized Weakness & fatigue, Complex Sleep Apnea Syndrome with good CPAP compliance per records, and gout presents with complaints of "exhaustion" as well as dizziness/feeling off balance. He reports uncontrolled HTN at home. He came to the ER today because his BP was quite elevated and, given the other symptoms, wanted to be evaluated. With respect to the dizziness - reports he can get it sitting, standing, or laying down. It is NOT a vertigo/spinning sensation. He feels "off balance." When asked to describe it more he then states "I'm exhausted." I asked him if the dizziness and exhaustion are the same thing and he said yes. "I was sitting at my computer this morning and I was exhausted." He voices considerable anxiety about "taking care of my home and swimming pool. My 2 sons don't live around here. I live alone." Denies chest pain or dyspnea. Orthostatic BPs were checked in the ER - negative. Reports 2 weeks of decreased appetite. No fevers or chills. In addition to fatigue/exhaustion reports generalized "weakness." PMH/PSH/allergies/meds/sochx - reviewed vitals - BPs elevated; mild bradycardia (50s); afebrile gen - laying comfortably in bed, NAD, awake/alert; looks tired neck - no JVD mouth - MMM heart - RRR, s1 s2, no murmur lungs - CTA b/l abd - soft NT ND BS+; no HSM ext - no edema, pulses 2+ b/l neuro - strength 5/5 x 4 exts; no facial droop; speech fluent/clear labs reviewed imaging reviewed EKG - my reading - NSR, LBBB, no ST changes; PACs A/P: 1. dizziness - not orthostatic, no vertigo. Equates the dizziness with fatigue/exhaustion. Etiology?? Agree with echo. Check sed rate, crp, B12 level. Telemetry. Consider brain MRI if rest of w/u is negative. 2. uncontrolled HTN - place on home BP med regimen and reassess. Titrate meds if necessary. 3. minimally elevated troponin - likely 2nd to uncontrolled HTN; no evidence of ACS. 4. fatigue/weakness - consider infectious w/u given the lack of appetite - consider lyme screen, anaplasmosis screen/DNA, blood cx's, etc. u/a not suggestive of UTI cxr without pneumonia my suspicion for infectious process, however, is very low check sed rate/crp Sukumar Khan MD PG Care Time/CCT Total # of Minutes Spent Total Time Spent with Patient: Total time spent is greater than 50% in coordination of care (as documented) at patient's floor/unit and/or counseling patient: Coding Level of Care Code 16887 INT INP/OBS CARE 3/75MIN Diagnoses Dizziness R42 HTN (hypertension) I10 Elevated troponin I level R79.89
[2025-02-12] MEDS ORDERED: POLYETHYLENE (MIRALAX) 17 GM PACK PO PRN (02:58)
[2025-02-12] MEDS ORDERED: ACETAMINOPHEN 325 MG TAB PO PRN (02:58)
[2025-02-12] MEDS ORDERED: MELATONIN 3 MG TAB PO PRN (02:58)
[2025-02-12] MEDS ORDERED: ONDANSETRON INJ 2 MG/ML 2 ML VIAL IV PRN (02:58)
[2025-02-12 03:28] LABS: C Reactive Protein < 0.50 mg/dl (0-0.5)
[2025-02-12 08:17] VITALS: TEMP 98.1; O2SAT 96
[2025-02-12] MEDS: amLODIPine BESYLATE 5 MG TAB PO SCH (08:50)
[2025-02-12] MEDS: APIXABAN 5 MG TABLET PO SCH (08:50)
[2025-02-12] MEDS: SIMVASTATIN 20 MG TAB PO SCH (08:50)
[2025-02-12] MEDS: allopurinoL 300 MG TAB PO SCH (08:50)
[2025-02-12] MEDS: METOPROLOL SUCC 25MG EXT REL TAB PO SCH (08:51)
[2025-02-12] MEDS: DOXAZosin MESYLATE TAB 2 MG TAB PO SCH (08:51)
[2025-02-12] MEDS ORDERED: LOSARTAN POTASSIUM 50 MG TAB PO SCH (09:00)
[2025-02-12] MEDS: LORazepam 0.5 MG TAB PO PRN (10:25)
--- NOTE | 2025-02-12 11:36 | Discharge Summary ---
Discharge Summary Date of Service February 12, 2025 Principal Dx & Hospital Course #1 = Principal Diagnosis (1) Dizziness: (2) HTN (hypertension): (3) Elevated troponin I level: Plan 79-year-old male PMHx HTN Hypercholesterolemia, MR, Moderate LVH, LBBB, A-Fib, HFpEF, Generalized Weakness, Complex Sleep Apnea Syndrome, and Gout presenting for elevated blood pressure readings and dizziness for the past week. ED evaluation reveals no leukocytosis, stable H&H; CMP grossly unremarkable with exception of BUN 33 and ratio 26.6; troponin 33.2, and then on repeat 37.7; TSH is 2.392; UA is negative; CXR without acute findings; head CT without acute findings; EKG sinus rhythm with a first-degree AV block and PACs as well as LAD and LBBB at 62 bpm.; Provided with lorazepam 0.5 mg IV in ED. #HTN - Presenting with dizziness with associated elevated blood pressure readings for the past week. Does admit to having some palpitations at times. With history of A-fib. For patient's hypertension, he normally takes metoprolol and olmesartan. Patient does follow with cardiology, most recent visit being 01/24/2025. BP as high as 202/82 during inpatient stay. - continue home metoprolol Home ARB discontinued and transition to amlodipine 5 Mg p.o., BP titrated down to 138/69 and remained stable during inpatient stay Discontinue ARB and transition to amlodipine on discharge, medication sent to pharmacy #Dizziness/anxiety - suspect 2/2 anxiety. Laboratories WNL, head CT negative, no signs of infection. Possibly doxazosin leading to some component of dizziness as well as chronic bradycardia. Received Ativan in ED and p.o. during admission which resolved anxiety and dizziness. Patient endorses that it is directly related. ESR, CRP, B12 negative. Orthostatic vitals negative. Received Ativan 0.5 Mg p.o. every 8 hours as needed during admission which resolved anxiety Will order Ativan as needed on discharge, follow-up with PCP regarding refills - Ambulating well, defer PT/OT consults as has outpatient PT/OT arranged #Elevated Troponin - No chest pain, trop peak 41.2 -> downtrended to 37.2. EKG showed sinus bradycardia with first-degree AV block, no ischemic changes. Suspect 2/2 demand with hypertension and possibly patient's baseline. Telemetry showing sinus bradycardia with occasional PVCs, rates as low as 32 overnight. - Echo 06/2024 EF 55 to 60%, mild concentric LVH - defer repeat - EKG sinus with 1st degree block, without ischemic changes #Afib- Eliquis, metoprolol - continue #HFpEF- Dry weight 230lbs, does not appear to be in HF exacerbation at this time; metoprolol, furosemide prn - continue #GERD- Lansoprazole - continue #SANTA- CPAP HS #Gout- Allopurinol - continue #BPH- Doxazosin - continue Dispo: discharge home VTE Prophylaxis: [place] Notes For Next Care Provider Patient was evaluated due to persistent hypertension. We transitioned his ARB to amlodipine 5 Mg p.o. daily with improvement of blood pressure. Patient was having anxiety associated with elevated blood pressure readings which contributed to his dizziness. He tolerated Ativan well during his inpatient stay, will send short course on discharge however please follow-up with patient regarding refills given he is within geriatric age. There was low concern for ambulatory dysfunction as he ambulated well for nursing and has outpatient PT/OT arranged. Family at bedside stated patient has been ambulating well. Medication Changes From Visit Stop olmesartan Start amlodipine 5 Mg daily Start Ativan 0.5 Mg p.o. every 8 hours as needed for anxiety Admission HPI Per Admitting Provider 79-year-old male PMHx HTN Hypercholesterolemia, MR, Moderate LVH, LBBB, A-Fib, HFpEF, Generalized Weakness, Complex Sleep Apnea Syndrome, and Gout presenting for elevated blood pressure readings and dizziness for the past week. Patient states that on the day [employer] his blood pressure in the morning was 189/103, and he was very anxious regarding this. States that he does take his medications as prescribed. He has been experiencing some dizziness, feeling off balance and as though he may fall over. He states that this happens at any time, not just with changing from a sitting to standing position. He does not have any chest pain or headaches. He does get shortness of breath with exertion only. States that his last dose of Lasix was approximately 3 days ago and he is back at his dry weight. He has bilateral leg weakness which has been ongoing and he follows with his PCP and PT for. He states that his anxiety is higher than normal stating that he is "worried about taking care of the house." Patient denies any prolonged outside exposure, no known tick bites. No cough. He has no fever or chills. There are no neurological deficits, he has not had any falls, and no history of such. Patient took his daily medications. States that he always has a low heart rate because he was involved in multiple sports when he was younger to include running, tennis, baseball, and softball. Patient does live alone, stating his 15 years ago. ED evaluation reveals no leukocytosis, stable H&H; CMP grossly unremarkable with exception of BUN 33 and ratio 26.6; troponin 33.2, and then on repeat 37.7; TSH is 2.392; UA is negative; CXR without acute findings; head CT without acute findings; EKG sinus rhythm with a first-degree AV block and PACs as well as LAD and LBBB at 62 bpm.; Provided with lorazepam 0.5 mg IV in ED. Please see Dr. Khan's attestation for adjustments/additions to treatment plan. Admission Exam Per Admitting Provider General: No acute distress Skin: Warm and dry Head: Normocephalic, atraumatic Eyes: PERRL, conjunctivae clear, sclera non-icteric ENT: External ear and ear canal without swelling; nose atraumatic; good dentition, tongue normal appearance, pharynx normal Neck: Supple, no LAD Cardio: RRR, no M/G/R, S1 and S2 normal Resp: No respiratory distress, Lungs CTA in all lobes bilaterally, no wheezes, rales, or rhonchi Abdomen: Soft, symmetric, nontender; No masses or hepatosplenomegaly; Bowel sounds normoactive MSK: No deformities; pulses palpable and equal; trace pitting edema BLE. Neuro: Awake, alert; Sensation intact bilaterally; CN grossly intact, no neurological deficits Psych: Appropriate mood and affect; good judgement and insight. Discharge Exam The patient is awake, alert and oriented 3, well developed and well nourished, normocephalic and atraumatic, in no acute distress. Non-toxic appearing. HEENT- EOMI, mucous membranes moist. Hearing grossly intact. Heart-normal S1 and S2. No murmurs, rubs or gallops. Lungs-clear bilaterally, no respiratory distress, no accessory muscle use. Abdomen-normal bowel sounds and soft. No ascites noted. Non-tender. Extremities- no clubbing, cyanosis, or edema. Rheumatologic-normal range of motion. Psychiatric-normal affect. Discharge Plan Discharge Items Patient Disposition: Home - Self-Care Reason For Visit: DIZZY, HTN Discharge Diagnosis: HTN, anxiety Condition on Discharge: Fair Activity: Resume your previous activity Non-emergency contact: Primary Care Provider Call non-emergency contact if: you have any medication questions and your symptoms worsen Follow-up/Referrals: Megan Grey DO [Primary Care Provider] - 02/16/25 12:45 pm (follow up in 1- 2 weeks) Diet: Regular Addtl Attending Provider Instructions: You were hospitalized for hypertension and dizziness. Your blood pressure improved after switching your previous hypertensive medication called losartan to a new medication called amlodipine. After further workup it was determined that your dizziness was caused by anxiety, as you endorsed such. Your laboratory studies were stable, no signs of infection, and head CT was negative for any acute changes that would indicate further workup for dizziness. You ambulated well in the hospital so there was no need for physical therapy/Occupational Therapy evals, as you already have outpatient PT/OT arranged. I am going to send a prescription for Ativan for your anxiety as this helped you during your hospital stay, please refer to your PCP regarding any refills for this. If you develop significant, persistent hypertension please return to the ED. It is recommended that you follow up with your PCP in 1-2 weeks after being discharged. Pending Studies at Discharge: No Stand-Alone Forms: My [facility] [employer], Smoking Cessation Medications and DC Order Prescriptions: New amlodipine [Norvasc] 5 mg tablet 5 mg PO DAILY Qty: 30 0RF lorazepam 0.5 mg tablet 0.5 mg PO Q8H PRN (Reason: anxiety) Qty: 12 0RF Continued potassium chloride 10 mEq capsule, extended release 10 meq PO DAILY PRN (Reason: Take with Lasix) Qty: 90 3RF simvastatin 20 mg tablet 20 mg PO DAILY Qty: 90 3RF metoprolol succinate 25 mg tablet extended release 24 hr 25 mg PO DAILY Qty: 90 3RF furosemide [Lasix] 40 mg tablet 40 mg PO DAILY PRN (Reason: weight gain) Qty: 90 3RF mecobalamin (vitamin B12) 1,000 mcg tablet,disintegrating 1,000 mcg sublingual DAILY Rx Instructions: place tablet under tongue and allow to dissolve for at least30 secs before swallowing doxazosin 4 mg tablet 6 mg PO DAILY ipratropium bromide 21 mcg (0.03 %) spray,non-aerosol 2 spray intranasal BID PRN (Reason: Nasal Congestion) Rx Instructions: USE 1-2 SPRAYS EACH NOSTRIL 1-2 TIMES DAILY. lansoprazole 30 mg capsule,delayed release(DR/EC) 30 mg PO Q OTHER DAY Dose Instruction: TAKE 1 CAPSULE EVERY OTHER DAY multivitamin Tablet 1 tab PO DAILY ashwagandha extract 500 mg Capsule 500 mg PO DAILY PRN (Reason: NEEDED PER PT) allopurinol 300 mg tablet 300 mg PO DAILY Eliquis 5 mg tablet 5 mg PO BID Discontinued olmesartan [Benicar] 40 mg tablet 40 mg PO DAILY Discharge Orders: Discharge Order (Routine); Ordered 02/12/25 Ordered By: Charlee Cuevas/Other Patient Handouts: Amlodipine Oral Tablet Admission Data Admit Date/Time: 02/12/25 00:39 Attending Provider: Pete Lanier Admit Provider: Sukumar Khan Primary Care Provider: Megan Grey Other Providers: Sukumar Khan Other Interventions: Discharge Summary Assessment (RN) Last Done: 02/12/25 12:22 Hospital Stay Data Consultations 02/12/25 00:21 ED Decision to Admit Stat Diagnostic Imagining Performed 02/11/25 20:35 CT head/brain wo con Stat Pending Results Patient Have Any Pending Studies at Discharge: No Discharge Instructions Given to Patient (Per Discharging Provider) You were hospitalized for hypertension and dizziness. Your blood pressure improved after switching your previous hypertensive medication called losartan to a new medication called amlodipine. After further workup it was determined that your dizziness was caused by anxiety, as you endorsed such. Your laboratory studies were stable, no signs of infection, and head CT was negative for any acute changes that would indicate further workup for dizziness. You ambulated well in the hospital so there was no need for physical therapy/Occupational Therapy evals, as you already have outpatient PT/OT arranged. I am going to send a prescription for Ativan for your anxiety as this helped you during your hospital stay, please refer to your PCP regarding any refills for this. If you develop significant, persistent hypertension please return to the ED. It is recommended that you follow up with your PCP in 1-2 weeks after being discharged. Supervising Physician Co-Signing Physician Notes The patient was not seen by me. The chart was reviewed. Case discussed with GO Holt. Agree with assessment and plan Total Time Total Time Spent Total Time Spent (In Minutes): 71 min Coding Level of Care Code INP/OBS EV SAME DAY LV 2,70MIN Diagnoses Dizziness R42 HTN (hypertension) I10 Elevated troponin I level R79.89
[2025-02-12 11:52] VITALS: BP 183/75; PULSE 54
[2025-02-13] MEDS ORDERED: PANTOprazole 40 MG TAB PO SCH (09:00)
--- NOTE | 2025-02-14 15:31 | Electrocardiogram Report ---
Test Reason : Blood Pressure : */* mmHG Vent. Rate : 62 BPM Atrial Rate : 62 BPM P-R Int : 246 ms QRS Dur : 152 ms QT Int : 444 ms P-R-T Axes : 62 -55 98 degrees QTcB Int : 450 ms Sinus bradycardia with 1st degree A-V block with Premature atrial complexes Left axis deviation Left bundle branch block Abnormal ECG When compared with ECG of 18-Oct-2022 05:59, Sinus rhythm has replaced Atrial flutter Confirmed by Alonzo Whitaker ([id number]) on 02/14/2025 3:31:08 PM Referred By: REFERRED SELF Confirmed By: Alonzo Whitaker
== END 2025-02-12 13:14 | disposition home or self-care (01) ==
LOC: ED 19:49 → 2N 19:49 → SUATTDRO 02-12 00:39 → 2N 02-12 02:18

== ENCOUNTER 2025-02-21 17:35 | Observation (INO) ==
[2025-02-21 18:15] LABS: Hematocrit (blood only) 41.7 % (42.0-52.0); Hemoglobin 14.3 g/dl (14.0-18.0); Immature Granulocytes # (auto) 0.02 K/uL (0.01-0.20); Immature Granulocytes % (auto) 0.3 %; Mean Corpuscular Hemoglobin 31.6 pg (25.0-34.0); Mean Corpuscular Volume 92.3 fL (80.0-100.0); Platelet Count 141 K/uL (130-400); RDW Standard Deviation 45.0 fL (36.4-46.3); Red Blood Count 4.52 M/uL (4.70-6.10); White Blood Count 8.00 K/ul (4.8-10.8)
[2025-02-21 18:34] LABS: Anion Gap 10 (3-11); Blood Urea Nitrogen 21 mg/dl (6-23); Calcium 9.8 mg/dl (8.6-10.3); Carbon Dioxide 26 mmol/L (21-32); Chloride 100 mmol/L (98-107); Glucose 106 mg/dl (70-99(Fasting)); Lipase 15 U/L (11-82); Magnesium 1.4 mg/dl (1.7-2.4); Potassium 4.0 mmol/L (3.5-5.1); Sodium 136 mmol/L (136-145)
[2025-02-21 18:45] LABS: INR 1.1 (0.9-1.1); Partial Thromboplastin Time 34 Seconds (21-31); Prothrombin Time 11.9 Seconds (9.0-12.0)
[2025-02-21] MEDS: MAGNESIUM SULFATE / D5W 1 GM/100 ML BAG IV SCH (19:15)
[2025-02-21] MEDS: ALBUT/IPRATROP 3MG/0.5MG NEB 3 ML VIAL NEB STA (19:15)
--- NOTE | 2025-02-21 19:25 | XRay Report ---
EXAM: XR chest 1V portable CLINICAL HISTORY: Chest pain, nonspecific TECHNIQUE: An X-ray image of the chest is obtained in AP projection. COMPARISON: CXR dated 02/11/2025. FINDINGS: Pulmonary Parenchyma: Lungs are clear bilaterally. No evidence of consolidation, collapse, or focal opacities. No pulmonary nodules are identified. No evidence of pleural effusion or pleural thickening. No pneumothorax. Heart and Mediastinum: Heart size and shape are normal. No mediastinal widening or masses. No hilar or mediastinal lymphadenopathy. Bony Thorax: Bony thorax appears intact without fractures or deformities. Soft Tissues: Soft tissues overlying the chest wall are unremarkable. IMPRESSION: 1. Normal chest X-ray. No acute cardiopulmonary abnormalities are identified. 2. No interval change from priors. Electronically signed by Diogenes Escobedo 02-21-2025 7:25 PM
[2025-02-21] MEDS: FUROSEMIDE 40 MG/4 ML VIAL IV ONE (19:49)
[2025-02-21 20:21] LABS: Chlamydia pneumoniae PCR Not Detected (NotDetected); Coronavirus 229E PCR Not Detected (NotDetected); Coronavirus CoV-2 (COVID19)PCR Not Detected (NotDetected); Coronavirus HKU1 PCR Not Detected (NotDetected); Coronavirus NL63 PCR Not Detected (NotDetected); Coronavirus OC43PCR DETECTED (NotDetected); Human Metapneumovirus PCR Not Detected (NotDetected); Parainfluenza Virus 1 PCR Not Detected (NotDetected); Parainfluenza Virus 2 PCR Not Detected (NotDetected); Parainfluenza Virus 3 PCR Not Detected (NotDetected); Parainfluenza Virus 4 PCR Not Detected (NotDetected); Respiratory Syncytial VirusPCR Not Detected (NotDetected); Rhinovirus/Enterovirus PCR Not Detected (NotDetected)
--- NOTE | 2025-02-21 20:22 | History & Physical Report ---
Date of Service February 21, 2025 Assessment & Plan (1) HTN (hypertension): (2) Weakness: (3) Ambulatory dysfunction: (4) Coronavirus infection: Chino Friedman is a 80 y/o male with PMHx HTN , MR, Moderate LVH, LBBB, A-Fib, HFpEF, Generalized Weakness, Complex Sleep Apnea Syndrome, and Gout here due to cough and leg swelling. #Weakness/ ambulatory disfunction Coronavirus - Patient with know history of CHF. compliant to medication. No weight gained. Complains of cough and leg edema. Lungs exam without crackles or ronchi. - Patient states having worsening cough for 36 hrs and insomnia - He was recently admitted due to HTN where olmesartan was switch to amlodipine - CXR: Normal, no effusion, no pulmonary edema - Lab remarkable for hypomagnesemia. BNP 348, troponin 30.4 - Positive for coronavirus - s/p IV lasix 40 mg once, IV mag 2 g - Will admit patient for observation due to weakness - Tessalon for cough - Labs in am - PT/ OT #HTN - continue metoprolol and amlodipine - amlodipine was added two week ago, might be contributing to his leg edema. Consider switching on outpatient #Afib- Eliquis, metoprolol - continue #HFpEF- Dry weight 230lbs, does not appear to be in HF exacerbation at this time; metoprolol, furosemide prn - continue #GERD- Lansoprazole - continue #SANTA- CPAP HS #Gout- Allopurinol - continue #BPH- Doxazosin - continue DVT prophylaxis: Eliquis History of Present Illness Primary Care Provider: SkylarSam GreyDO Friedman is a 80 y/o male with PMHx HTN MR, Moderate LVH, LBBB, A-Fib, HFpEF, Generalized Weakness, Complex Sleep Apnea Syndrome, and Gout here due to cough and leg swellings. Patient states having more that 36 hours of insomnia due to the the cough. states having leg swelling for a a week or so. He took his F urosemide as needed early this morning. He was admitted to [facility] about a week ago due to HTN, amlodipine was added. He denied any worsening orthopnea. Denied any weight gained. Denied any sick contacts. Denied any fever, chills or SOB. Denied any chest pain. Denied any vomiting, nausea or abdominal pain. He is compliant to his medications. Allergies Allergy/AdvReac Type Severity Reaction Status Date / Time Sulfa (Sulfonamide Allergy Severe RASH, Verified 02/21/25 19:19 Antibiotics) HIVES,SWELLING Home Medications Medication Instructions Recorded Confirmed Type potassium chloride 10 mEq 10 meq PO DAILY PRN Take with 09/05/24 02/21/25 Rx capsule,extended release Lasix #90 caps simvastatin 20 mg tablet 20 mg PO DAILY #90 tabs 09/05/24 02/21/25 Rx metoprolol succinate 25 mg 25 mg PO DAILY #90 tabs 09/28/24 02/21/25 Rx tablet,extended release 24 hr doxazosin 4 mg tablet 6 mg PO DAILY 10/03/24 02/21/25 History ipratropium bromide 21 mcg (0.03 2 spray intranasal BID PRN Nasal 10/03/24 02/21/25 History %) nasal spray Congestion lansoprazole 30 mg capsule,delayed 30 mg PO Q OTHER DAY 10/03/24 02/21/25 History release mecobalamin (vitamin B12) 1,000 1,000 mcg sublingual DAILY 12/21/24 02/21/25 History mcg disintegrating tablet,sublingual furosemide 40 mg tablet (Lasix) 40 mg PO DAILY PRN weight gain #90 01/24/25 02/21/25 Rx tabs allopurinol 300 mg tablet 300 mg PO DAILY 02/11/25 02/21/25 History apixaban 5 mg tablet (Eliquis) 5 mg PO BID 02/11/25 02/21/25 History ashwagandha extract 500 mg capsule 500 mg PO DAILY PRN NEEDED PER 02/11/25 02/21/25 History PT multivitamin 1 tab PO DAILY 02/11/25 02/21/25 History amlodipine 5 mg tablet (Norvasc) 5 mg PO DAILY #30 tabs 02/12/25 02/21/25 Rx lorazepam 0.5 mg tablet 0.5 mg PO Q8H PRN anxiety #12 tabs 02/12/25 02/21/25 Rx sertraline 25 mg tablet 25 mg PO DAILY #90 tabs 02/16/25 02/21/25 Rx Past Med/Surg History Problem List (Updated 02/21/25 @ 22:59 by Eamon Templeton MD) Edema (Acute) Coronavirus infection Ambulatory dysfunction Weakness Elevated troponin I level (Acute) Dizziness (Acute) Heart palpitations (Acute) HTN (hypertension) (Acute) Carpal tunnel syndrome on both sides Sensory polyneuropathy Nocturnal hypoxemia Complex sleep apnea syndrome Low magnesium level (Acute) Low vitamin B12 level Generalized weakness (Acute) (HFpEF) heart failure with preserved ejection fraction Dyslipidemia Lumbar disc disease LVH (left ventricular hypertrophy) Diverticulosis (Chronic) Ventral hernia (Chronic) PVCs (premature ventricular contractions) (Chronic) Obstructive sleep apnea (Chronic) 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) Left bundle branch block (Chronic) Inguinal hernia (Chronic) Gout, joint (Chronic) Degenerative joint disease, 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 (Chronic) Chronic reflux esophagitis (Chronic) Allergic rhinitis (Chronic) Medical History Atrial fibrillation ETD (eustachian tube dysfunction) Acute on chronic diastolic CHF (congestive heart failure) Painful total knee replacement, left Congestive heart failure Painful total knee replacement, left Olecranon bursitis Trochanteric bursitis Clostridium difficile infection Hemangioendothelioma of liver Esophageal stricture Ulcer of esophagus with bleeding Acute kidney injury Hypomagnesemia Surgical History S/p bilateral myringotomy with tube placement History of bilateral knee replacement H/O colonoscopy (~01/2017) S/P tonsillectomy Hx of total knee arthroplasty Family History Family/Other Coronary heart disease Environmental allergies per patient-"All of us" Mother Hearing loss Hypertension Breast cancer Father Cardiac disorder Hypertension Heart disease of a heart attack Other No family history of adverse response to anesthesia No family history of bleeding disorder Social History Smoking Status: Former smoker Tobacco Type: Cigarettes, Pipe and Cigars Age Started Using Tobacco: 15; Age Quit Using Tobacco: 48; packs per day: 2; Second Hand Exposure: No; Do You Dip or Chew Tobacco: No; Hx Alcohol Use: No (sober x2 weeks) Hx Substance Use: No Preferred Language: Slovenian Communication Ability: Effective Hotel Server Required: No Beliefs That Will Affect Care: None marital status: / Current Living Situation: Alone current occupational status: retired How many Children do You have: 2 Other Information That Helps Us Care for You: No Feels Safe at Home: Yes Safety Concerns: Feels Safe At This Time Childhood Exposure to Second-Hand Smoke: No Dental Care, Regularly: Yes Physical Activity Frequency: Does not Exercise Seatbelt Use: always Sunscreen Use: No Assistive Devices: Cane, CPAP and Glasses Review of Systems Review of Systems: as per hpi Physical Exam Constitutional: WD/WN, vitals as above ENMT: external ear and nose normal, oropharynx normal Respiratory: normal respiratory effort, lungs clear to auscultation + cough Cardiovascular: Rate/Rhythm: regular rate and regular rhythm Heart Sounds: normal S1 and normal S2 Vessels: no JVD Extremities: + edema (trace edema) Gastrointestinal (Abdomen): normal bowel sounds, soft, nontender, no hepatosplenomegaly Musculoskeletal: no cyanosis or clubbing, extremities motor strength 5/5 Results & Data Results & Data Vital Signs (Past 12 Hours) Vital Signs Temp Pulse Pulse Resp BP BP Pulse Ox 02/21/25 18:20 87 16 94 02/21/25 18:20 87 16 161/64 H 94 02/21/25 17:57 87 02/21/25 17:46 37.2 C 83 18 118/72 94 O2 Del Method 02/21/25 18:20 Room Air 02/21/25 18:20 Room Air 02/21/25 17:57 02/21/25 17:46 Room Air Code Status & VTE Plan VTE Prophylaxis Plan VTE Prophylaxis will be ordered: Yes Supervising Physician Co-Signing Physician Notes I personally saw and examined the patient. I independently reviewed the labs, EKG, imaging, problem list, medication list, past medical history and family history. I verified all herrmann points and agree with resident physician Dr Isra Haddad MD with the following exceptions and/or additions: 80 year old male presents to the ER with cough and leg swelling. He lives alone and is urinating frequent since being given lasix in the ER and feels unsafe to go home alone at this time. O/E HS RRR, no murmurs, Chest CTAB, Abdo SNT, trace b/l pitting edema A/P Coronavirus / ambulatory dysfunction - Tessalon Perles 1st line and dextromethorphan 2nd line, PT/OT evals HTN - continue his usual medications although some concern amlodipine causing leg swelling this can be switched as outpatient if needing Resident Activity Tracking Resident Involvement: Resident Care Provided Care Provided: Adult Hospital Medicine
[2025-02-21] MEDS: BENZONATATE 100 MG CAPSULE PO ONE (20:45)
[2025-02-21] MEDS ORDERED: ACETAMINOPHEN 325 MG TAB PO PRN (22:05)
[2025-02-21] MEDS ORDERED: MELATONIN 3 MG TAB PO PRN (22:05)
[2025-02-21] MEDS ORDERED: ONDANSETRON INJ 2 MG/ML 2 ML VIAL IV PRN (22:05)
--- NOTE | 2025-02-21 22:59 | Emergency Department Note ---
History of Present Illness General Chief Complaint: Swelling/Edema to Extremity Stated Complaint: LEGS SWELLING, COUGH Time Seen by Provider: 02/21/25 18:01 History of Present Illness Provider Complaint: shortness of breath and cough Onset (ago): day(s) (3) Severity: severe Consistency/Duration: + progressively worsening Maximum Pain Intensity: 4 Relieved By: + rest Exacerbated By: + exertion and + coughing Known history of: congestive heart failure Associated symptoms: + sputum production and + chest congestion; no fever, no wheezing, no hemoptysis or no nausea/vomiting HPI Narrative: Patient is also reporting swelling in his bilateral lower extremities. Home Medications Medication Instructions Recorded Confirmed Type potassium chloride 10 mEq 10 meq PO DAILY PRN Take with 09/05/24 02/21/25 Rx capsule,extended release Lasix #90 caps simvastatin 20 mg tablet 20 mg PO DAILY #90 tabs 09/05/24 02/21/25 Rx metoprolol succinate 25 mg 25 mg PO DAILY #90 tabs 09/28/24 02/21/25 Rx tablet,extended release 24 hr doxazosin 4 mg tablet 6 mg PO DAILY 10/03/24 02/21/25 History ipratropium bromide 21 mcg (0.03 2 spray intranasal BID PRN Nasal 10/03/24 02/21/25 History %) nasal spray Congestion lansoprazole 30 mg capsule,delayed 30 mg PO Q OTHER DAY 10/03/24 02/21/25 History release mecobalamin (vitamin B12) 1,000 1,000 mcg sublingual DAILY 12/21/24 02/21/25 History mcg disintegrating tablet,sublingual furosemide 40 mg tablet (Lasix) 40 mg PO DAILY PRN weight gain #90 01/24/25 02/21/25 Rx tabs allopurinol 300 mg tablet 300 mg PO DAILY 02/11/25 02/21/25 History apixaban 5 mg tablet (Eliquis) 5 mg PO BID 02/11/25 02/21/25 History ashwagandha extract 500 mg capsule 500 mg PO DAILY PRN NEEDED PER 02/11/25 02/21/25 History PT multivitamin 1 tab PO DAILY 02/11/25 02/21/25 History amlodipine 5 mg tablet (Norvasc) 5 mg PO DAILY #30 tabs 02/12/25 02/21/25 Rx lorazepam 0.5 mg tablet 0.5 mg PO Q8H PRN anxiety #12 tabs 02/12/25 02/21/25 Rx sertraline 25 mg tablet 25 mg PO DAILY #90 tabs 02/16/25 02/21/25 Rx Allergies Allergy/AdvReac Type Severity Reaction Status Date / Time Sulfa (Sulfonamide Allergy Severe RASH, Verified 02/21/25 19:19 Antibiotics) HIVES,SWELLING Past Med/Surg History Problem List (Updated 02/21/25 @ 22:59 by Eamon Templeton MD) Edema (Acute) Coronavirus infection Ambulatory dysfunction Weakness Elevated troponin I level (Acute) Dizziness (Acute) Heart palpitations (Acute) HTN (hypertension) (Acute) Carpal tunnel syndrome on both sides Sensory polyneuropathy Nocturnal hypoxemia Complex sleep apnea syndrome Low magnesium level (Acute) Low vitamin B12 level Generalized weakness (Acute) (HFpEF) heart failure with preserved ejection fraction Dyslipidemia Lumbar disc disease LVH (left ventricular hypertrophy) Diverticulosis (Chronic) Ventral hernia (Chronic) PVCs (premature ventricular contractions) (Chronic) Obstructive sleep apnea (Chronic) 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) Left bundle branch block (Chronic) Inguinal hernia (Chronic) Gout, joint (Chronic) Degenerative joint disease, 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 (Chronic) Chronic reflux esophagitis (Chronic) Allergic rhinitis (Chronic) Medical History Atrial fibrillation ETD (eustachian tube dysfunction) Acute on chronic diastolic CHF (congestive heart failure) Painful total knee replacement, left Congestive heart failure Painful total knee replacement, left Olecranon bursitis Trochanteric bursitis Clostridium difficile infection Hemangioendothelioma of liver Esophageal stricture Ulcer of esophagus with bleeding Acute kidney injury Hypomagnesemia Surgical History S/p bilateral myringotomy with tube placement History of bilateral knee replacement H/O colonoscopy (~01/2017) S/P tonsillectomy Hx of total knee arthroplasty Family History Family/Other Coronary heart disease Environmental allergies per patient-"All of us" Mother Hearing loss Hypertension Breast cancer Father Cardiac disorder Hypertension Heart disease of a heart attack Other No family history of adverse response to anesthesia No family history of bleeding disorder Social History Smoking Status: Former smoker Tobacco Type: Cigarettes, Pipe and Cigars Age Started Using Tobacco: 15; Age Quit Using Tobacco: 48; packs per day: 2; Second Hand Exposure: No; Do You Dip or Chew Tobacco: No; Hx Alcohol Use: No (sober x2 weeks) Hx Substance Use: No Preferred Language: Salvadorean Communication Ability: Effective [employer] Worker Required: No Beliefs That Will Affect Care: None marital status: / Current Living Situation: Alone current occupational status: retired How many Children do You have: 2 Other Information That Helps Us Care for You: No Feels Safe at Home: Yes Safety Concerns: Feels Safe At This Time Childhood Exposure to Second-Hand Smoke: No Dental Care, Regularly: Yes Physical Activity Frequency: Does not Exercise Seatbelt Use: always Sunscreen Use: No Assistive Devices: Cane, CPAP and Glasses Physical Exam 2 Vital Signs: Vital Signs - 24 hr 02/21/25 17:46 02/21/25 17:57 02/21/25 18:00 Temperature 37.2 C Temperature Source Temporal Artery Sc an Pulse Rate 83 87 90 Pulse Rate [Apical ] Pulse Rate from Sp O2 Sensor 79 Respiratory Rate 18 20 Respiratory Effort / Characteristics Non-Labored Sponta neous Respiratory Depth Normal Respiratory Patter n Regular Blood Pressure 118/72 145/84 H Blood Pressure [Ri ght Arm] Blood Pressure Key n 87 104 Blood Pressure Key n [Right Arm] Pulse Oximetry 94 94 Oxygen Delivery Me thod Room Air Room Air Sepsis Recent Feve r Within 48 Hours No Sepsis New/Unexpla ined Change in Men rajendra Status No Sepsis Action Take n by Nursing No Action Required 02/21/25 18:20 02/21/25 18:20 02/21/25 19:18 Temperature Temperature Source Pulse Rate 87 90 Pulse Rate [Apical ] 87 Pulse Rate from Sp O2 Sensor 75 Respiratory Rate 16 16 20 Respiratory Effort / Characteristics Respiratory Depth Respiratory Patter n Blood Pressure Blood Pressure [Ri ght Arm] 161/64 H Blood Pressure Key n Blood Pressure Key n [Right Arm] 96 Pulse Oximetry 94 94 97 Oxygen Delivery Me thod Room Air Room Air Room Air Sepsis Recent Feve r Within 48 Hours Sepsis New/Unexpla ined Change in Men rajendra Status Sepsis Action Take n by Nursing 02/21/25 19:30 02/21/25 20:00 Temperature Temperature Source Pulse Rate 97 H Pulse Rate [Apical ] Pulse Rate from Sp O2 Sensor 91 H 82 Respiratory Rate 20 18 Respiratory Effort / Characteristics Respiratory Depth Respiratory Patter n Blood Pressure 110/86 180/111 H Blood Pressure [Ri ght Arm] Blood Pressure Key n 95 137 Blood Pressure Key n [Right Arm] Pulse Oximetry 98 96 Oxygen Delivery Me thod Room Air Room Air Sepsis Recent Feve r Within 48 Hours Sepsis New/Unexpla ined Change in Men rajendra Status Sepsis Action Take n by Nursing Physical Exam: Physical Exam GENERAL: oriented to person, place, and time. appears well-developed and well- nourished. HENT: Exam performed. - Head: Normocephalic and atraumatic. EYES: Conjunctivae and EOM are normal. Right eye exhibits no discharge. Left eye exhibits no discharge. No scleral icterus. NECK: Normal range of motion. Neck supple. No JVD present. CV: Normal rate, regular rhythm, normal heart sounds and intact distal pulses. 2+ pitting edema of the bilateral lower extremities.. Palpable radial pulses bue. PULM/CHEST: Rhonchi bilaterally. ABD: The abdomen is soft. There is no tenderness. NEURO: Motor and sensation grossly intact. SKIN: Skin is warm and dry. He is not diaphoretic. PSYCH: normal mood and affect. Behavior is normal. Judgment and thought content normal. Course Course 1800: The patient was evaluated in room C11. A complete history and physical exam was performed Cardiac monitoring: An order was placed for continuous cardiac monitoring. The monitor shows a rate of 80 with sinus rhythm interpreted by me 1903: Vital signs stable. Labs are significant for magnesium 1.4. High- sensitivity troponin 29.6. BNP 348. Chest x-ray unremarkable. Magnesium repletion started in the emergency department. Lasix ordered for the patient given his bilateral edema. Given the patient's new bigeminy hypomagnesemia, patient will be admitted to the hospitalist team. Administered Medications Discontinued Medications Albuterol (Albut/Ipratrop 3mg/0.5mg Neb 3 Ml Vial) 3 ml NEB NOW STA; Protocol Stop: 02/21/25 18:23 Last Admin: 02/21/25 19:15 Dose: 3 ml Documented By: JEREMY Benzonatate (Benzonatate 100 Mg Capsule) 100 mg PO NOW ONE Stop: 02/21/25 20:23 Last Admin: 02/21/25 20:45 Dose: 100 mg Documented By: JEREMY Furosemide (Furosemide 40 Mg/4 Ml Vial) 40 mg IV ONE ONE Stop: 02/21/25 19:07 Last Admin: 02/21/25 19:49 Dose: 40 mg Documented By: JEREMY Magnesium Sulfate/Dextrose (Magnesium Sulfate / D5w) 1 gm in 100 mls @ 100 mls/hr IV Q1H VICTOR MANUEL Stop: 02/21/25 21:02 Last Infusion: 02/21/25 21:36 Dose: Infused Documented By: Admin: 02/21/25 20:36 Dose: 100 mls/hr Documented By: Infusion: 02/21/25 20:35 Dose: Infused Documented By: Admin: 02/21/25 19:15 Dose: 100 mls/hr Documented By: JEREMY Medical Decision Making Laboratory Data Attestation: I reviewed the patient's lab results. 02/21/25 18:03 02/21/25 18:03 Lab Results 02/21/25 02/21/25 02/21/25 Range/Units 18:03 19:10 19:57 WBC 8.00 (4.8-10.8) K/ul RBC 4.52 L (4.70-6.10) M/uL Hgb 14.3 (14.0-18.0) g/dl Hct 41.7 L (42.0-52.0) % MCV 92.3 (80.0-100.0) fL MCH 31.6 (25.0-34.0) pg MCHC 34.3 (32.0-36.0) g/dL RDW Std Deviation 45.0 (36.4-46.3) fL RDW Coeff of Jeana 13.3 (11.5-14.5) % Plt Count 141 (130-400) K/uL MPV 11.5 (9.4-12.4) fL Immature Gran % (Auto) 0.3 % Neut % (Auto) 75.1 % Lymph % (Auto) 10.9 % Linn % (Auto) 12.1 % Eos % (Auto) 1.3 % Baso % (Auto) 0.3 % Neut # (Auto) 6.02 (1.40-6.50) K/uL Lymph # (Auto) 0.87 L (1.20-3.40) K/uL Linn # (Auto) 0.97 H (0.11-0.59) K/uL Eos # (Auto) 0.10 (0.00-0.50) K/uL Baso # (Auto) 0.02 (0.00-0.20) K/uL Immature Gran # (Auto) 0.02 (0.01-0.20) K/uL PT 11.9 (9.0-12.0) Seconds INR 1.1 (0.9-1.1) APTT 34 H (21-31) Seconds PTT Ratio 1.3 Sodium 136 (136-145) mmol/L Potassium 4.0 (3.5-5.1) mmol/L Chloride 100 (98-107) mmol/L Carbon Dioxide 26 (21-32) mmol/L Anion Gap 10 (3-11) BUN 21 (6-23) mg/dl Creatinine 1.23 (0.6-1.4) mg/dl Est Cr Clr Drug Dosing Not Reportable eGFR 58.98 BUN/Creatinine Ratio 17.1 (10-20) Glucose 106 H (70-99(Fasting)) mg/dl Calcium 9.8 (8.6-10.3) mg/dl Magnesium 1.4 L (1.7-2.4) mg/dl Troponin I High Sens 29.6 H 30.4 H (0-20) pg/ml B-Natriuretic Peptide 348 H (0-100) pg/ml Lipase 15 (11-82) U/L Adenovirus (PCR) Not Detected (NotDetected) B. pertussis DNA (PCR) Not Detected (NotDetected) B.parapertussis DNA PCR Not Detected (NotDetected) C. pneumoniae DNA (PCR) Not Detected (NotDetected) Coronavirus OC43 (PCR) DETECTED A (NotDetected) Coronavirus HKU1 (PCR) Not Detected (NotDetected) Coronavirus 229E (PCR) Not Detected (NotDetected) SARS-CoV-2 (PCR) Not Detected (NotDetected) Coronavirus NL63 (PCR) Not Detected (NotDetected) Human Metapneumovir PCR Not Detected (NotDetected) Influenza Type A (PCR) Not Detected (NotDetected) Influenza Type B (PCR) Not Detected (NotDetected) M. pneumoniae (PCR) Not Detected (NotDetected) Parainfluenza 1 (PCR) Not Detected (NotDetected) Parainfluenza 2 (PCR) Not Detected (NotDetected) Parainfluenza 3 (PCR) Not Detected (NotDetected) Parainfluenza 4 (PCR) Not Detected (NotDetected) RSV (PCR) Not Detected (NotDetected) Entero/Rhino (PCR) Not Detected (NotDetected) Imaging Data Attestation: I personally reviewed and interpreted this imaging study as follows: My Impression: Chest x-ray negative. Airway clear. No pneumothorax. No consolidation. No cardiomegaly or cephalization.. No free air under the diaphragm. No fractures of the skeletal structures. Radiologist's Impression: Chest X-Ray 02/21/25 18:02 EXAM: XR chest 1V portable CLINICAL HISTORY: Chest pain, nonspecific TECHNIQUE: An X-ray image of the chest is obtained in AP projection. COMPARISON: CXR dated 02/11/2025. FINDINGS: Pulmonary Parenchyma: Lungs are clear bilaterally. No evidence of consolidation, collapse, or focal opacities. No pulmonary nodules are identified. No evidence of pleural effusion or pleural thickening. No pneumothorax. Heart and Mediastinum: Heart size and shape are normal. No mediastinal widening or masses. No hilar or mediastinal lymphadenopathy. Bony Thorax: Bony thorax appears intact without fractures or deformities. Soft Tissues: Soft tissues overlying the chest wall are unremarkable. IMPRESSION: 1. Normal chest X-ray. No acute cardiopulmonary abnormalities are identified. 2. No interval change from priors. Electronically signed by Diogenes Escobedo 02-21-2025 7:25 PM ECG Data Attestation: I personally reviewed and interpreted this ECG as follows: Interpretation: Sinus rhythm with a rate of 83. VA 210 QRS 146 QTc 479. Left bundle branch block present. Sgarbossa negative. Patient is in bigeminy pattern. [facility] Narrative 1801: The patient was evaluated in room C11. A complete history and physical exam was performed Cardiac monitoring: An order was placed for continuous cardiac monitoring. The monitor shows a rate of 80 with sinus rhythm interpreted by me 1903: Vital signs stable. Labs are significant for magnesium 1.4. High- sensitivity troponin 29.6. BNP 348. Chest x-ray unremarkable. Magnesium repletion started in the emergency department. Lasix ordered for the patient given his bilateral edema. Given the patient's new bigeminy hypomagnesemia, patient will be admitted to the hospitalist team. Impression & Plan PVCs (premature ventricular contractions), Low magnesium level, Edema Discharge Plan Visit Data Chief Complaint: Swelling/Edema to Extremity Stated Complaint: LEGS SWELLING, COUGH ED Provider: Eamon Templeton Discharge Problem: PVCs (premature ventricular contractions), Low magnesium level, Edema Patient Disposition: Admitted As Inpatient Condition: Fair Discharge Instructions Interventions: ED Discharge Assessment Last Done: 02/21/25 21:32
[2025-02-21] MEDS: APIXABAN 5 MG TABLET PO SCH (23:01)
[2025-02-21] MEDS: SIMVASTATIN 20 MG TAB PO SCH (23:01)
[2025-02-21] MEDS: DEXTROMETHORPHAN POLYMR COMPLX 30MG/5 ML BTL PO PRN (23:53)
[2025-02-22] MEDS: LORazepam 0.5 MG TAB PO PRN (00:48)
[2025-02-22] MEDS: BENZONATATE 100 MG CAPSULE PO PRN (00:48)
--- NOTE | 2025-02-22 05:04 | Billing Data ---
Date of Service February 21, 2025 Coding Level of Care Code 26318 INT INP/OBS CARE
[2025-02-22] MEDS: DOXAZosin MESYLATE TAB 2 MG TAB PO SCH (08:25)
[2025-02-22] MEDS: CYANOCOBALAMIN (B-12) 500 MCG TABLET PO SCH (08:26)
[2025-02-22] MEDS: MULTIVITAMIN TAB PO SCH (08:27)
[2025-02-22] MEDS: SERTRALINE HCL 50 MG TABLET PO SCH (08:27)
[2025-02-22] MEDS: METOPROLOL SUCC 25MG EXT REL TAB PO SCH (08:27)
[2025-02-22] MEDS ORDERED: SIMVASTATIN 20 MG TAB PO SCH (09:00)
[2025-02-22] MEDS: guaiFENesin 600 MG TABCR PO STA (10:32)
--- NOTE | 2025-02-22 14:18 | Hospitalist Progress Note ---
Date of Service February 22, 2025 Assessment & Plan (1) Ambulatory dysfunction: (2) Leg edema: (3) Coronavirus infection: (4) Weakness: (5) HTN (hypertension): Plan Mr. Rodriguez is a 80 y/o male with PMHx of HTN , MR, Moderate LVH, LBBB, A-Fib, HFpEF, Generalized Weakness, Complex Sleep Apnea Syndrome, and Gout who presented on 02/21 for lower extremity edema and worsening cough x 36 hours [employer]. Coronavirus (+) on arrival. #Weakness | ambulatory disfunction Suspect this is multifactorial: (1) lower extremity edema, (2) coronavirus infection, (3) deconditioning from recent hospitalization, and (4) generalized fatigue from insomnia He was recently admitted on 02/12 due to HTN where olmesartan was switch to amlodipine PT/OT evaluations appreciated Per OT evaluation on 02/22, patient would benefit from rehab stay at this current time; if improvement during hospital stay, could return home PT evaluation still pending on 02/22 Maintain fall precautions #Coronavirus infection Coronavirus OC43 (+) on arrival; non-hypoxic/not requiring supplemental oxygen throughout stay Droplet isolation precautions while patient is still symptomatic/coughing Supportive care Guaifenesin 1200 mg p.o. BID DuoNeb PRN Acetaminophen as needed for pain/fever #HFpEF | LE edema | elevated troponin Dry weight 230lb; around baseline on arrival CXR without acute cardiopulmonary findings; no effusions no pulmonary edema Lung exam without crackles or rhonchi BNP mildly elevated at 348 on arrival Elevated troponin 29 -> 30 (chronic; stable); suspect this is elevated due to demand ischemia in the setting of viral illness/heart failure Last echocardiogram on 02/15/2025 revealed LVEF at 50 to 55%; septal motion was consistent with a conduction abnormality at this time Lasix 40 mg IV x 1 given in the emergency department Do not feel the patient is in acute heart failure at this time, and suspect most of his respiratory symptoms are due to coronavirus infection/hacking cough Suspect LE edema is due to amlodipine use; D/C amlodipine Strict I&O monitoring Daily weights Heart healthy, low-sodium diet Will plan to start patient on Lasix 40 mg p.o. every other day Concomitant K supplementation 10 mEq p.o. every other day #HTN Patient remains hypertensive at 155/70 on 7/2; pulse elevated at 94 bpm Amlodipine was added two week ago, might be contributing to his leg edema; discontinue amlodipine Increase metoprolol succinate from 25mg p.o. daily -> 50mg p.o. daily #Afib Rate controlled, sinus rhythm on arrival However, patient's EKG does reveal potential bigeminy Continuous telemetry monitoring Continue Eliquis #Hypomagnesemia (resolved) Magnesium low at 1.4 on arrival; now 1.8 S/p magnesium sulfate 1 g IV x 2 #GERD Continue PPI #SANTA CPAP HS #Gout Continue allopurinol #BPH Continue doxazosin Disposition: Continued stay on MedSurg telemetry DVT prophylaxis: Eliquis Admission and Anticipated Discharge Date Admission Date: February 21, 2025 Supervising Physician Co-Signing Physician Notes PA Supervision Note: I did not personally see or examine the patient today, but I verified all herrmann points of GO Prasad's assessment and plan with the following exceptions/additions: None Subjective Mr. Rodriguez is resting peacefully in bed this morning. He reports that he had a rough night of sleep, but his breathing is better this morning. He is still having a productive cough (white sputum production) that kept him up last night. He reports the benzonatate is not helping much, but would like to try Mucinex today. Patient normally uses a CPAP at night, but reports he did not use one last night. He denies any other supplemental oxygen at home. No PMH of asthma or COPD to his knowledge. He denies smoking and tobacco use. He reports he recently quit drinking alcohol (martinis) 2 weeks ago. No recent change in diet. He reports that he watches his salt intake at home. Patient does not ambulate with a walker or cane at baseline. ROS: Patient endorses hacking/productive cough (white sputum production). Patient denies fever, chills, night sweats, dizziness/lightheadedness when getting up to use the bathroom, chest pain, chest palpitations, pleuritic CP, hemoptysis, SOB at rest or with exertion, abdominal pain, N/V/D, or changes in urinary or bowel habits. Spoke on the phone with patient's son (Donald) and provided update regarding hospitalization/labs/vitals/imaging. Son was recently with his father 3 days ago, and reports he was doing well at his PCP appointment. He then reports that things began to go downhill when he stopped taking his Lasix, but was still having fluid buildup on his legs. Patient lives alone. Both sons live 2 hours away; patient was brought into the hospital by his ex- who lives locally. While patient did test positive for coronavirus, son reports that the patient's hacking cough has also been a "telltale sign" that he is having fluid start buildup around his lungs. In regard to why patient was taking off olmesartan, son is unsure. He reports that he had been on olmesartan for an extended period of time, and it had been working, but just did not work during his last hospitalization. When asked why the patient only takes Lasix as needed, son reports that his father did not like the "effects" of the Lasix, and was concerned that it would lead to low potassium. Review of Systems Review of Systems: See HPI above Physical Exam Physical Exam: General: no acute distress; non-toxic appearing; well-nourished; cooperative; SpO2 96% on RA HEENT: normocephalic, atraumatic; no scleral icterus; PERRLA; vision and hearing intact Neck: supple; trachea midline Skin: warm, dry without signs of tenting; no cyanosis; no rashes, bruising, lesions, or erythema noted CV: chest wall NTP; RRR; S1/S2 normal; no murmurs/rubs/gallops; pulses intact and symmetric at radial, DP, and PT Lungs: no acute respiratory distress; symmetrical chest wall expansion; clear breath sounds across all lung palmer w/o adventitious sounds; no wheezing ABD: Soft, NTP; BS present; no rebound/guarding; no distention MSK: no tics or fasciculations; no edema noted in the LEs b/l, nonerythematous Neuro: A&Ox3; normal mood and affect; fluent speech; no focal deficits; sensation intact in lower extremities bilaterally Results & Data Results & Data Vital Signs (Past 12 Hours) Vital Signs Temp Pulse Pulse Resp BP Pulse Ox O2 Del Method 02/22/25 14:08 94 H 02/22/25 11:29 37.1 C 70 18 155/70 H 96 Room Air 02/22/25 09:47 89 02/22/25 08:10 Room Air 02/22/25 07:40 37.1 C 65 20 133/69 93 Room Air 02/22/25 03:59 36.6 C 86 20 168/72 H 94 Room Air PG Care Time/CCT Total # of Minutes Spent Total Time Spent with Patient: Total time spent is greater than 50% in coordination of care (as documented) at patient's floor/unit and/or counseling patient: Coding [place] [address] SUB INP/OBS CARE 3/50MIN Patient Type Established Medical Decision Making High Complexity Diagnoses Ambulatory dysfunction R26.2 Leg edema R60.0 Coronavirus infection B34.2 Weakness R53.1 HTN (hypertension) I10
--- NOTE | 2025-02-22 14:26 | Electrocardiogram Report ---
Test Reason : Blood Pressure : */* mmHG Vent. Rate : 83 BPM Atrial Rate : 83 BPM P-R Int : 210 ms QRS Dur : 146 ms QT Int : 408 ms P-R-T Axes : 84 -52 101 degrees QTcB Int : 479 ms Sinus rhythm with 1st degree A-V block with frequent , and consecutive Premature ventricular complexe s Left axis deviation Left bundle branch block Abnormal ECG When compared with ECG of 11-Feb-2025 20:14, Premature ventricular complexes are now Present Premature atrial complexes are no longer Present Confirmed by Alfie Reveles ([id number]) on 02/22/2025 2:26:04 PM Referred By: REFERRED SELF Confirmed By: Alfie Reveles
[2025-02-22] MEDS: METOPROLOL SUCC 25MG EXT REL TAB PO STA (16:45)
[2025-02-22] MEDS: guaiFENesin 600 MG TABCR PO SCH (20:44)
[2025-02-23 03:57] VITALS: RESP 20
[2025-02-23] MEDS: POTASSIUM CHLORIDE 10 MEQ TABCR PO SCH (08:18)
[2025-02-23] MEDS: METOPROLOL SUCC 50MG EXT REL TAB PO SCH (08:19)
[2025-02-23] MEDS: FUROSEMIDE 40 MG TAB PO SCH (08:20)
[2025-02-23 09:50] LABS: Hematocrit (blood only) 40.5 % (42.0-52.0); Hemoglobin 13.9 g/dl (14.0-18.0); Mean Corpuscular Hemoglobin 32.2 pg (25.0-34.0); Mean Corpuscular Volume 93.8 fL (80.0-100.0); Platelet Count 140 K/uL (130-400); RDW Standard Deviation 46.5 fL (36.4-46.3); Red Blood Count 4.32 M/uL (4.70-6.10); White Blood Count 6.07 K/ul (4.8-10.8)
[2025-02-23 11:20] VITALS: BP 135/67; TEMP 98.2; O2SAT 93
--- NOTE | 2025-02-23 11:36 | Discharge Summary ---
Discharge Summary Date of Service February 23, 2025 Principal Dx & Hospital Course #1 = Principal Diagnosis (1) Ambulatory dysfunction: (2) Leg edema: (3) Coronavirus infection: (4) Weakness: (5) HTN (hypertension): Plan Mr. 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 Coronavirus (+) on arrival. Day of Discharge 02/23: Patient reports that he slept "good" last night. He feels better today than he did yesterday. His only complaint this morning is that his cough is still lingering. That said, he does report that Mucinex helped significantly yesterday (more so than the Tessalon Perles). He is not experiencing any dyspnea or lightheadedness when walking to the bathroom. No SOB at rest. No fevers overnight. He only has trouble breathing when he gets into coughing fits. Overall, he reports that he feels well, and is open to trying an increased dose of metoprolol today for better blood pressure control. ROS: Patient endorses ongoing hacking cough, and mild lower extremity edema (improved from yesterday). Patient denies fever, chills, night sweats, dizziness/lightheadedness when ambulating to the bathroom, chest pain, chest palpitations, SOB at rest, dyspnea on exertion, pleuritic CP, hemoptysis, abdominal pain, N/V/D, changes in urinary bowel habits, burning with urination, or numbness tingling in arms or legs. #Weakness | ambulatory disfunction Suspect this is multifactorial: (1) lower extremity edema, (2) coronavirus infection, (3) deconditioning from recent hospitalization, and (4) generalized fatigue from insomnia He was recently admitted on 02/12 due to HTN where olmesartan was switch to amlodipine PT/OT evaluations appreciated Per OT evaluation on 02/22, patient would benefit from rehab stay at this current time; if improvement during hospital stay, could return home Noted decreased endurance, reduced activity tolerance, decreased overall strength, and decreased standing/balance PT evaluation on 02/22 recommends return to prior living arrangement Maintain fall precautions Touched base with case management, as patient likely to benefit from home health PT/OT given OT recommendations; patient currently lives alone Referral made to [facility] home health #Coronavirus infection Coronavirus OC43 (+) on arrival; non-hypoxic/not requiring supplemental oxygen throughout stay Droplet isolation precautions while patient is still symptomatic/coughing Supportive care Prescription for guaifenesin sent to patient's pharmacy on discharge Acetaminophen as needed for pain/fever #HFpEF | LE edema | elevated troponin Dry weight 230lb; around baseline on arrival CXR without acute cardiopulmonary findings; no effusions no pulmonary edema Lung exam without crackles or rhonchi BNP mildly elevated at 348 on arrival Elevated troponin 29 -> 30 (chronic; stable); suspect this is elevated due to demand ischemia in the setting of viral illness/heart failure Last echocardiogram on 02/15/2025 revealed LVEF at 50 to 55%; septal motion was consistent with a conduction abnormality at this time Lasix 40 mg IV x 1 given in the emergency department Do not feel the patient is in acute heart failure at this time, and suspect most of his respiratory symptoms are due to coronavirus infection/hacking cough Suspect LE edema is due to amlodipine use; D/C amlodipine Strict I&O monitoring Daily weights Heart healthy, low-sodium diet Will plan to start patient on Lasix 40 mg p.o. every other day on discharge (next dose 02/25) Concomitant K supplementation 10 mEq p.o. every other day on discharge (next dose 02/25) #HTN Patient remains hypertensive at 155/70 on 02/22; pulse elevated at 94 bpm Amlodipine was added two week ago, might be contributing to his leg edema; discontinue amlodipine Increase metoprolol succinate from 25mg p.o. daily -> 50mg p.o. daily #Afib Rate controlled, sinus rhythm on arrival However, patient's EKG does reveal potential bigeminy Continue Eliquis Increasing dose of metoprolol to suppress ectopy and help with rate control #Hypomagnesemia (resolved) Magnesium low at 1.4 on arrival; now 1.8. Could be from PPI use-consider stopping PPI use as outpatient S/p magnesium sulfate 1 g IV x 2 #GERD Continue PPI #SANTA CPAP HS #Gout Continue allopurinol #BPH Continue doxazosin Disposition: Discharged to home DVT prophylaxis: Eliquis Notes For Next Care Provider Patient's amlodipine 5 mg daily has been discontinued as it is suspected that this is contributing to his lower extremity swelling. Instead, his metoprolol succinate has been increased from 25 mg daily to 50 mg daily. We will also plan to send patient home on Lasix 40 mg every other day, as well as potassium supplementation 10 mEq every other day. Admission HPI Per Admitting Provider Elder is a 80 y/o male with PMHx HTN MR, Moderate LVH, LBBB, A-Fib, HFpEF, Generalized Weakness, Complex Sleep Apnea Syndrome, and Gout here due to cough and leg swellings. Patient states having more that 36 hours of insomnia due to the the cough. states having leg swelling for a a week or so. He took his Furosemide as needed early this morning. He was admitted to [facility] about a week ago due to HTN, amlodipine was added. He denied any worsening orthopnea. Denied any weight gained. Denied any sick contacts. Denied any fever, chills or SOB. Denied any chest pain. Denied any vomiting, nausea or abdominal pain. He is compliant to his medications. Admission Exam Per Admitting Provider Constitutional: WD/WN, vitals as above ENMT: external ear and nose normal, oropharynx normal Respiratory: normal respiratory effort, lungs clear to auscultation + cough Cardiovascular: Rate/Rhythm: regular rate and regular rhythm Heart Sounds: n ormal S1 and normal S2 Vessels: no JVD Extremities: + edema (trace edema) Gastrointestinal (Abdomen): normal bowel sounds, soft, nontender, no hepatosplenomegaly Musculoskeletal: no cyanosis or clubbing, extremities motor strength 5/5 Discharge Exam General: no acute distress; pleasant affect; non-toxic appearing; well- nourished; cooperative; SpO2 93% on RA HEENT: normocephalic, atraumatic; no scleral icterus; PERRLA; vision and hearing intact Neck: supple; trachea midline Skin: warm, dry without signs of tenting; no cyanosis; no rashes, bruising, lesions, or erythema noted CV: chest wall NTP; RRR; S1/S2 normal; no murmurs/rubs/gallops; pulses intact and symmetric at radial, DP, and PT Lungs: no acute respiratory distress; symmetrical chest wall expansion; clear breath sounds across all lung palmer w/o adventitious sounds; no wheezing ABD: Soft, NTP; BS present; no rebound/guarding; no distention MSK: no tics or fasciculations; nonpitting edema noted in the LEs b/l, nonerythematous; patient demonstrates ability to lift legs off the bed against resistance with 4/5 strength bilaterally Neuro: A&Ox3; normal mood and affect; fluent speech; no focal deficits; sensation intact and symmetric in the lower extremities bilateral Discharge Plan Discharge Items Patient Disposition: Home - Home Health Services Reason For Visit: LEG EDEMA Discharge Diagnosis: Coronavirus infection, leg edema, generalized weakness, ambulatory function Condition on Discharge: Fair Activity: Resume your previous activity Non-emergency contact: Primary Care Provider Call non-emergency contact if: you have any medication questions, your symptoms worsen and you have a fever Follow-up/Referrals: Megan Grey DO [Primary Care Provider] - 03/14/25 1:30 pm (Hospital follow up scheduled March 14 at 1:30) Diet: Heart Healthy and Low Sodium (2gm) Addtl Attending Provider Instructions: You were hospitalized at [facility] from 02/21 - 02/23 for generalized weakness, difficulty walking, leg swelling, and worsening cough. On arrival you tested positive for a strain of coronavirus OC43 (not to be confused with COVID). This upper respiratory virus is similar to the common cold. Throughout the course of your hospital stay, your oxygen saturation remained > 9 0% and at no point did you require supplemental oxygen. Your vital signs remained stable. No reported fevers in the hospital. You also did not have an elevated white blood cell count to indicate signs of a severe infection. These reasons, we feel that it is safe for you to return home at this time with supportive care. Our occupational therapy team did recommend that you have some additional support at home due to decreased endurance and strength deficits. It is suspected that this generalized weakness is multifactorial: (1) leg swelling, (2) upper respiratory coronavirus infection, (3) deconditioning from recent hospitalizations, and (4) generalized fatigue from trouble sleeping. We have touched base with our case management team, who will see you prior to discharge to set up a home health appointment/evalutation. A referral has been made for [facility] home health; please be on the look out for their correspondence in the coming week. Additionally, we plan to discontinue your amlodipine ("Norvasc") as this may have been contributing to your leg swelling. While in the hospital, we increased your metoprolol from 25 mg daily to 50 mg daily, which did seem to help with blood pressure control with minimal reported side effects. The following medications will be prescribed to your pharmacy upon discharge: - Guaifenesin ("Mucinex") 1200 mg twice daily as needed for cough Note: This medication can also be obtained [id number] - Benzonatate ("Tessalon Perles") 100 mg up to 3 times daily as needed for cough - Metoprolol succinate 50 mg daily - Furosemide ("Lasix") 40 mg every other day - START on Sunday 02/25 - Potassium supplements 10 mEq every other day to be taken with Lasix - START on Sunday 02/25 Please plan to follow-up with your PCP in the next 1 to 2 weeks for a transitional care appointment. If you develop any new or worsening symptoms, such as fever/chills, chest pain, chest palpitations, trouble breathing with walking, or worsening of leg swelling, please return to the emergency department immediately. It was a pleasure taking care of you. Please reach out any questions or concerns. Sincerely, The Hospital Medicine team at [facility] Pending Studies at Discharge: No Stand-Alone Forms: [facility] Medications and DC Order Prescriptions: New furosemide 40 mg Tablet 40 mg PO Q2D Qty: 30 0RF Rx Instructions: Take 1 tablet by mouth every other day starting on 02/25 metoprolol succinate 50 mg Tablet Extended Release 24 Hr 50 mg PO QAM Qty: 30 0RF Rx Instructions: Take 1 tablet by mouth every morning potassium chloride 10 mEq Tablet Extended Release 10 meq PO Q2D Qty: 30 0RF Rx Instructions: Take 1 tablet by mouth every other day starting on 02/25 ONLY take at the same time as furosemide (AKA "Lasix") guaifenesin [Mucinex] 600 mg Tablet Extended Release 12hr 1,200 mg PO Q12 PRN (Reason: cough) Qty: 14 0RF Rx Instructions: Take 1 tablet by mouth every 12 hours as needed for cough benzonatate 100 mg capsule 100 mg PO TID PRN (Reason: cough) Qty: 21 0RF Rx Instructions: Take one tablet by mouth up to three times per day as needed for cough Continued simvastatin 20 mg tablet 20 mg PO DAILY Qty: 90 3RF sertraline 25 mg tablet 25 mg PO DAILY Qty: 90 0RF mecobalamin (vitamin B12) 1,000 mcg tablet,disintegrating 1,000 mcg sublingual DAILY Rx Instructions: place tablet under tongue and allow to dissolve for at least30 secs before swallowing doxazosin 4 mg tablet 6 mg PO DAILY ipratropium bromide 21 mcg (0.03 %) spray,non-aerosol 2 spray intranasal BID PRN (Reason: Nasal Congestion) Rx Instructions: USE 1-2 SPRAYS EACH NOSTRIL 1-2 TIMES DAILY. lansoprazole 30 mg capsule,delayed release(DR/EC) 30 mg PO Q OTHER DAY Dose Instruction: TAKE 1 CAPSULE EVERY OTHER DAY multivitamin Tablet 1 tab PO DAILY ashwagandha extract 500 mg Capsule 500 mg PO DAILY PRN (Reason: NEEDED PER PT) allopurinol 300 mg tablet 300 mg PO DAILY Eliquis 5 mg tablet 5 mg PO BID lorazepam 0.5 mg tablet 0.5 mg PO Q8H PRN (Reason: anxiety) Qty: 12 0RF Discontinued potassium chloride 10 mEq capsule, extended release 10 meq PO DAILY PRN (Reason: Take with Lasix) Qty: 90 3RF metoprolol succinate 25 mg tablet extended release 24 hr 25 mg PO DAILY Qty: 90 3RF furosemide [Lasix] 40 mg tablet 40 mg PO DAILY PRN (Reason: weight gain) Qty: 90 3RF amlodipine [Norvasc] 5 mg tablet 5 mg PO DAILY Qty: 30 0RF Krames/Other Patient Handouts: Potassium Chloride Oral Tablet, Benzonatate Oral Capsule, Furosemide Oral Tablet, Guaifenesin Extended Release Oral Tablet, Metoprolol Oral Tablet Admission Data Admit Date/Time: 02/21/25 20:14 Attending Provider: Giovanna López Admit Provider: Sukumar Fallon Primary Care Provider: Megan Grey Other Providers: Sukumar Fallon; [facility],Home Healthcare; [place],Home Care Other Interventions: Discharge Summary Assessment (RN) Last Done: 02/23/25 12:43 Hospital Stay Data Consultations 02/21/25 19:03 ED Decision to Admit Stat Discharge Instructions Given to Patient (Per Discharging Provider) You were hospitalized at [facility] from 02/21 - 02/23 for generalized weakness, difficulty walking, leg swelling, and worsening cough. On arrival you tested positive for a strain of coronavirus OC43 (not to be confused with COVID). This upper respiratory virus is similar to the common cold. Throughout the course of your hospital stay, your oxygen saturation remained > 90% and at no point did you require supplemental oxygen. Your vital signs remained stable. No reported fevers in the hospital. You also did not have an elevated white blood cell count to indicate signs of a severe infection. These reasons, we feel that it is safe for you to return home at this time with supportive care. Our occupational therapy team did recommend that you have some additional support at home due to decreased endurance and strength deficits. It is suspected that this generalized weakness is multifactorial: (1) leg swelling, (2) upper respiratory coronavirus infection, (3) deconditioning from recent hospitalizations, and (4) generalized fatigue from trouble sleeping. We have touched base with our case management team, who will see you prior to discharge to set up a home health appointment/evalutation. A referral has been made for [facility] home health; please be on the look out for their correspondence in the coming week. Additionally, we plan to discontinue your amlodipine ("Norvasc") as this may have been contributing to your leg swelling. While in the hospital, we increased your metoprolol from 25 mg daily to 50 mg daily, which did seem to help with blood pressure control with minimal reported side effects. The following medications will be prescribed to your pharmacy upon discharge: - Guaifenesin ("Mucinex") 1200 mg twice daily as needed for cough Note: This medication can also be obtained [id number] - Benzonatate ("Tessalon Perles") 100 mg up to 3 times daily as needed for cough - Metoprolol succinate 50 mg daily - Furosemide ("Lasix") 40 mg every other day - START on Sunday 02/25 - Potassium supplements 10 mEq every other day to be taken with Lasix - START on Sunday 02/25 Please plan to follow-up with your PCP in the next 1 to 2 weeks for a transitional care appointment. If you develop any new or worsening symptoms, such as fever/chills, chest pain, chest palpitations, trouble breathing with walking, or worsening of leg swelling, please return to the emergency department immediately. It was a pleasure taking care of you. Please reach out any questions or concerns. Sincerely, The Hospital Medicine team at [facility] Supervising Physician Co-Signing Physician Notes PA Supervision Note: I did not personally see or examine the patient today, but I verified all herrmann points of GO Prasad's assessment and plan with the following exceptions/additions: None Total Time Total Time Spent Total Time Spent (In Minutes): 45 Coding [place] [address] INP/OBS DISCH >30 MIN Patient Type Established Medical Decision Making High Complexity Diagnoses Ambulatory dysfunction R26.2 Leg edema R60.0 Coronavirus infection B34.2 Weakness R53.1 HTN (hypertension) I10
[2025-02-23 11:53] LABS: Anion Gap 8.0 (3-11); Blood Urea Nitrogen 24.0 mg/dl (6-23); Calcium 9.4 mg/dl (8.6-10.3); Carbon Dioxide 29.0 mmol/L (21-32); Chloride 101.0 mmol/L (98-107); Creatinine Clr Calc Pharmacy 53.6 ml/min; Glucose 142.0 mg/dl (70-99(Fasting)); Potassium 3.9 mmol/L (3.5-5.1); Sodium 138.0 mmol/L (136-145)
[2025-02-23 13:58] VITALS: PULSE 62
== END 2025-02-23 15:08 | disposition home health service (06) ==
LOC: 2W 17:35 → ED 17:35 → SUATTDRO 20:14 → 2W 21:32

== ENCOUNTER 2025-08-12 06:25 | Observation (INO) ==
--- NOTE | 2025-08-12 06:45 | Emergency Department Note ---
Impression & Plan Weakness, Fall, Rhabdomyolysis, Atrial fibrillation, Anticoagulated, Elevated troponin ED Provider Note NAME: LINDA ALVARENGA AGE: 80 SEX: M : 1945 ARRIVES VIA: Ambulance INFORMANT: [Patient][ems] ED PROVIDER(S): [Jabari Rivera MD] Patient first seen by me at 0627 CHIEF COMPLAINT: Fall HISTORY OF PRESENT ILLNESS: Patient is an 80-year-old male who takes Eliquis for atrial fibrillation. He also carries a history of heart failure. He is currently living alone. He has a care center bed at [facility] set up for 2 weeks from today. Patient states that around 12 hours ago, he lost his balance and fell backwards. He was on the floor for around 3 hours crawling around before he could get up. Patient states that since the fall, he has been weak and off balance and has not done well. He seems quite fatigued. He did lose urinary continence 1 time. He spoke with his ex-, the ambulance was called. There hss been no cough or cold. He denies any fever. Patient denies any neck pain, rib pain, chest pain, abdominal pain. He does complain of some pain to both knees and his left elbow, he states this is from crawling around on the floor. PMHx/PSHx/Social Hx: See Below PHYSICAL EXAM: Primary Survey Airway: Intact Breathing: Breath sounds equal bilaterally. No respiratory distress Circulation: Skin warm, capillary refill less than 2 seconds Disability: Pupils equal and reactive to light Motor Function: Moves all extremities. Sensory: No deficits Secondary Survey GEN: Well developed and well-nourished HEAD: Normocephalic, atraumatic EYES: Pupils round and reactive to light, conjunctiva clear, extraocular movements intact ENT: No fluid in external acoustic canals, nares patent, oropharynx clear NECK: Midline trachea, no cervical spine tenderness HEART: Irregular rhythm with a subtle murmur, normal rate. LUNGS: Clear to auscultation bilaterally CHEST: Chest wall non-tender, no bruising/deformity ABD: No contusions, soft, non-tender, no distention PELVIS: Stable to rock BACK: No step offs or deformities, T-L spine non tender EXT: Moving all extremities well, no gross deformities. There is some swelling and erythema to both anterior knees. There is a contusion forming to the medial aspect of the left elbow. No real pain to move the joints of the left elbow or knees. NEURO: No focal motor deficits, no sensory deficits. No speech slur. DIFFERENTIAL DIAGNOSIS: Rhabdomyolysis, dehydration, UTI, anemia, electrolyte imbalance, generalized decline, intracranial injury, extremity injury, among others. EMERGENCY DEPARTMENT PROCEDURES: C-spine was clinically cleared at 0927, once the CT imaging returned. MEDICAL DECISION MAKING: There is a mild leukocytosis which could be consistent with infection or just the stress of his fall. There is a normal hemoglobin and platelet count. No bandemia. No coagulopathy. No renal failure or significant electrolyte abnormality. No worrisome liver enzyme elevation. No evidence for pancreatitis. Patient appears to be in a euthyroid state. Total CK was elevated at around 600, consistent with some very mild rhabdomyolysis. ECG showed atrial fibrillation without any ST elevation. Cardiac enzyme testing at x 1 was slightly elevated. This troponin elevation could be secondary cardiac injury or just mismatch from his fall and current weakness/illness. Urinalysis does not show findings of infection. Chest x-ray does not show pneumothorax or rib injury. There is no pneumonia. Bilateral knee and elbow films were performed, no obvious fractures were seen. There were some bilateral knee joint effusions. A brain and C-spine CT were performed, there was no acute intracranial bleeding, no C-spine fracture. On exam, patient was not in distress. No focal neurologic findings. No fever. Patient received IV saline, 500 cc. This was given for hydration. He received IV Zofran for nausea, IV morphine for pain, IV Tylenol for pain. Luckily, the patient does not appear to have suffered any significant injury from his fall. He is living alone, quite weak. He has findings of mild rhabdomyolysis as well as a troponin elevation. I do think a hospital stay, observation, further workup would be warranted. In short, he is not safe for discharge home. I spoke with the patient and case management, the on-call hospitalist was consulted. Prior/Outside records/notes reviewed: EMS notes describing his presentation and transfer to this hospital. ECG per my interpretation: Indication was fall. The ECG shows what appears to be atrial fibrillation with an occasional PVC. There is a left bundle branch block. The rate is 96. There was no obvious concerning ST elevation, QTc was 497. Continuous Cardiac Monitoring per my interpretation: An order was placed for continuous cardiac monitoring. The monitor shows a rate of 97 with atrial fibrillation. Imaging/x-ray results per my interpretation: Chest x-ray does not show rib injury or pneumothorax. There is cardiomegaly. Bilateral knee films show joint effusions, no obvious fractures. Bilateral elbow films do not show findings of fracture or dislocation. Chronic Medical/Social conditions affecting care: Advanced age, chronic Eliquis use. Care/Management discussed with: Case management and the on-call hospitalist. Level of care consideration(s): After review of the information above and other included data: --I believe the patient requires escalation of care to admission Critical Care Note: I have personally spent 41 minutes of critical care time in the direct management of this patient. This includes bedside care, interpretation of diagnostic studies, and testing, discussion with consultants, patient, and family members, and other required patient management activities. This 41 minutes is in excess of all separately billable procedures. DISPOSITION: Admission Past Med/Surg History Problem List Elevated troponin (Acute) Anticoagulated (Acute) Atrial fibrillation (Acute) Rhabdomyolysis (Acute) Fall (Acute) Weakness (Acute) Ambulatory dysfunction Weakness HTN (hypertension) (Acute) Carpal tunnel syndrome on both sides Sensory polyneuropathy Nocturnal hypoxemia Complex sleep apnea syndrome Low magnesium level (Acute) Low vitamin B12 level (HFpEF) heart failure with preserved ejection fraction Dyslipidemia Lumbar disc disease LVH (left ventricular hypertrophy) Diverticulosis (Chronic) Ventral hernia (Chronic) PVCs (premature ventricular contractions) (Chronic) Obstructive sleep apnea (Chronic) 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) Left bundle branch block (Chronic) Gout, joint (Chronic) Degenerative joint disease, 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 (Chronic) Chronic reflux esophagitis (Chronic) Allergic rhinitis (Chronic) Medical History Atrial fibrillation ETD (eustachian tube dysfunction) Painful total knee replacement, left Congestive heart failure Olecranon bursitis Trochanteric bursitis Clostridium difficile infection Hemangioendothelioma of liver Esophageal stricture Ulcer of esophagus with bleeding Hypomagnesemia Surgical History S/p bilateral myringotomy with tube placement History of bilateral knee replacement H/O colonoscopy (~01/2017) S/P tonsillectomy Hx of total knee arthroplasty Family History Family/Other Coronary heart disease Environmental allergies Mother Hearing loss Hypertension Breast cancer Father Cardiac disorder Hypertension Heart disease Other No family history of adverse response to anesthesia No family history of bleeding disorder Social History Smoking Status: Former smoker Tobacco Type: Cigarettes, Pipe and Cigars Age Started Using Tobacco: 15; Age Quit Using Tobacco: 48; packs per day: 2; Second Hand Exposure: No; Do You Dip or Chew Tobacco: No; Tobacco Cessation Education Requested by Patient: No Hx Alcohol Use: Yes Alcohol type: hard liquor Alcohol Intake Frequency: 4 or More x per/Week Alcohol Intake Frequency Comment: 1 glass of wine or a martini per day Hx Substance Use: No Preferred Language: Frisian Communication Ability: Effective Boot Lace Cutter Machine Required: No Beliefs That Will Affect Care: None marital status: / Current Living Situation: Alone current occupational status: retired How many Children do You have: 2 Other Information That Helps Us Care for You: No Feels Safe at Home: Yes Safety Concerns: Feels Safe At This Time Childhood Exposure to Second-Hand Smoke: No Dental Care, Regularly: Yes Physical Activity Frequency: Does not Exercise Seatbelt Use: always Sunscreen Use: No Assistive Devices: Walker Allergies Allergies Allergy/AdvReac Type Severity Reaction Status Date / Time Sulfa (Sulfonamide Allergy Severe RASH, Verified 08/03/25 10:18 Antibiotics) HIVES,SWELLING Home Meds Home Medications Medication Instructions Recorded Confirmed doxazosin 4 mg tablet 6 mg PO DAILY 10/03/24 08/12/25 lansoprazole 30 mg capsule,delayed 30 mg PO Q OTHER DAY 10/03/24 08/12/25 release mecobalamin (vitamin B12) 1,000 1,000 mcg sublingual HS 12/21/24 08/12/25 mcg disintegrating tablet,sublingual allopurinol 300 mg tablet 300 mg PO DAILY 02/11/25 08/12/25 apixaban 5 mg tablet (Eliquis) 5 mg PO BID 02/11/25 08/12/25 multivitamin 1 tab PO DAILY 02/11/25 08/12/25 furosemide 40 mg tablet 40 mg PO Q2D PRN Lower extremity 08/12/25 08/12/25 edema Previous Rx's Medication Instructions Recorded simvastatin 20 mg tablet 20 mg PO DAILY #90 tabs 09/05/24 metoprolol succinate 25 mg 37.5 mg (1.5 x 25 mg) PO DAILY 04/26/25 tablet,extended release 24 hr #135 tabs olmesartan 20 mg tablet 20 mg PO DAILY #90 tabs 04/26/25 potassium chloride 10 mEq 10 meq PO DAILY PRN Take with 08/03/25 tablet,extended release Lasix #90 tabs Results & Data (ED) Vital Signs Vital Signs - 24 hr 08/12/25 06:39 08/12/25 06:59 08/12/25 08:22 Temperature 36.7 C Temperature Source Oral Pulse Rate 101 H 101 H Pulse Rate [Apical] 86 Pulse Rhythm Regular Regular Pulse Strength Normal Respiratory Rate 20 20 21 Respiratory Effort / Characteristics Non-Labored Non-Labored Spontaneous Respiratory Depth Normal Normal Respiratory Pattern Regular Regular Blood Pressure 139/106 H Blood Pressure [Right Arm] 148/81 H Blood Pressure Mean 117 Blood Pressure Mean [Right Arm] 103 Blood Pressure Position Lying Blood Pressure Position [Right Arm] Pulse Oximetry 93 93 97 Oxygen Delivery Method Room Air Room Air Room Air Sepsis Recent Fever Within 48 Hours No Sepsis New/Unexplained Change in Mental Status No Sepsis Action Taken by Nursing No Action Required 08/12/25 09:51 08/12/25 10:34 Temperature Temperature Source Pulse Rate 74 Pulse Rate [Apical] 82 Pulse Rhythm Pulse Strength Respiratory Rate 20 Respiratory Effort / Characteristics Non-Labored Spontaneous Respiratory Depth Normal Respiratory Pattern Regular Blood Pressure Blood Pressure [Right Arm] 169/95 H Blood Pressure Mean Blood Pressure Mean [Right Arm] 119 Blood Pressure Position Blood Pressure Position [Right Arm] Lying Pulse Oximetry 95 Oxygen Delivery Method Room Air Sepsis Recent Fever Within 48 Hours Sepsis New/Unexplained Change in Mental Status Sepsis Action Taken by Residential Medications Current Medication List: was personally reviewed by me Laboratory Data Attestation: I reviewed the patient's lab results. 08/12/25 06:43 08/12/25 06:43 Lab Results 08/12/25 08/12/25 Range/Units 06:43 08:47 WBC 11.10 H (4.8-10.8) K/ul RBC 4.53 L (4.70-6.10) M/uL Hgb 14.4 (14.0-18.0) g/dL Hct 41.9 L (42.0-52.0) % MCV 92.5 (80.0-100.0) fL MCH 31.8 (25.0-34.0) pg MCHC 34.4 (32.0-36.0) g/dL RDW Std Deviation 46.4 H (36.4-46.3) fL RDW Coeff of Jeana 13.8 (11.5-14.5) % Plt Count 142 (130-400) K/uL MPV 11.6 (9.4-12.4) fL Immature Gran % (Auto) 0.8 % Neut % (Auto) 78.6 % Lymph % (Auto) 8.6 % [place] % (Auto) 11.5 % Eos % (Auto) 0.4 % Baso % (Auto) 0.1 % Neut # (Auto) 8.73 H (1.40-6.50) K/uL Lymph # (Auto) 0.95 L (1.20-3.40) K/uL [place] # (Auto) 1.28 H (0.11-0.59) K/uL Eos # (Auto) 0.04 (0.00-0.50) K/uL Baso # (Auto) 0.01 (0.00-0.20) K/uL Immature Gran # (Auto) 0.09 (0.01-0.20) K/uL PT 11.7 (9.0-12.0) Seconds INR 1.1 (0.9-1.1) APTT 28 (21-31) Seconds PTT Ratio 1.0 Sodium 140 (136-145) mmol/L Potassium 3.8 (3.5-5.1) mmol/L Chloride 104 (98-107) mmol/L Carbon Dioxide 28 (21-32) mmol/L Anion Gap 8 (3-11) BUN 28 H (6-23) mg/dl Creatinine 1.07 (0.6-1.4) mg/dl Est Cr Clr Drug Dosing 63.8 ml/min eGFR 69.72 BUN/Creatinine Ratio 26.2 H (10-20) Glucose 114 H (70-99(Fasting)) mg/dl Calcium 9.9 (8.6-10.3) mg/dl Magnesium 1.8 (1.7-2.4) mg/dl Total Bilirubin 0.9 (0.2-1.0) mg/dl AST 32 (13-39) U/L ALT 16 (7-52) U/L Alkaline Phosphatase 59 (34-104) U/L Total Creatine Kinase 664 H (30-223) U/L Troponin I High Sens 113.6 H* 108.3 H* (0-20) pg/ml Total Protein 6.4 (6.0-8.3) gm/dl Albumin 4.1 (3.4-5.0) gm/dl Globulin 2.3 L (2.5-4.0) gm/dl Albumin/Globulin Ratio 1.8 (0.9-2) Lipase 5 L (11-82) U/L TSH 2.423 (0.300-4.500) uIu/ml Administered Medications Allopurinol (Allopurinol 300 Mg Tab) 300 mg PO DAILY [facility] Stop: 09/11/25 10:49 Last Admin: 08/12/25 12:39 Dose: 300 mg Documented By: CHARLOTTED Enoxaparin Sodium (Enoxaparin Inj 40 Mg/0.4 Ml Syr) 40 mg SQ Q24H [facility] Stop: 09/11/25 11:05 Last Admin: 08/12/25 12:43 Dose: 40 mg Documented By: ANNE Losartan Potassium (Losartan Potassium 50 Mg Tab) 50 mg PO DAILY [facility] Stop: 09/11/25 11:29 Last Admin: 08/12/25 12:42 Dose: 50 mg Documented By: ANNE Metoprolol Succinate (Metoprolol Succ 25mg Ext Rel Tab) 37.5 mg PO DAILY [facility] Stop: 09/11/25 10:49 Last Admin: 08/12/25 12:39 Dose: 37.5 mg Documented By: CHARLOTTED Pantoprazole Sodium (Pantoprazole 40 Mg Tab) 40 mg PO Q2D [facility] Stop: 09/11/25 11:15 Last Admin: 08/12/25 12:42 Dose: 40 mg Documented By: ANNE Discontinued Medications Sodium Chloride (Nss) 500 mls @ 999 mls/hr IV .Q31M ONE Stop: 08/12/25 08:39 Last Infusion: 08/12/25 08:53 Dose: Infused Documented By: Admin: 08/12/25 08:22 Dose: 999 mls/hr Documented By: MANGO Acetaminophen (Ofirmev) 1,000 mg in 100 mls @ 400 mls/hr IV NOW STA Stop: 08/12/25 08:23 Last Infusion: 08/12/25 08:59 Dose: Infused Documented By: Admin: 08/12/25 08:22 Dose: 400 mls/hr Documented By: MANGO Morphine Sulfate (Morphine Sulfate 2 Mg/Ml Carp) 2 mg IV NOW STA Stop: 08/12/25 08:10 Last Admin: 08/12/25 08:22 Dose: 2 mg Documented By: MANGO Ondansetron HCl (Ondansetron Inj 2 Mg/Ml 2 Ml Vial) 4 mg IV NOW STA Stop: 08/12/25 08:10 Last Admin: 08/12/25 08:23 Dose: 4 mg Documented By: MANGO Imaging Data Radiologist's Impression: Cervical Spine CT 08/12/25 06:38 EXAM: CT cervical spine wo con CLINICAL HISTORY: Trauma. TECHNIQUE: CT scan of the cervical spine was performed without the administration of intravenous contrast. Contiguous axial images were obtained from the skull base to the upper thoracic spine. Coronal and sagittal reformatted images were also reviewed. One of the following dose reduction techniques was utilized for this exam. Automated exposure control, adjustment of the mA and/or kV according to patient size, and use of iterative reconstruction. COMPARISON: No previous studies are available for comparison. FINDINGS: Degraded images due to motion artifact, obscuring the field of view in the cervical spine. Vertebrae: No gross fracture was seen; however, a hairline fracture cannot be properly assessed cervical spine. Multilevel marginal bone hypertrophy. No signs of lytic or sclerotic lesions. Normal configuration of the posterior elements. Intervertebral Discs: The intervertebral disc spaces are reduced. Multilevel disc bulge and discal calcification noted. Facet Joints: Multilevel facet joint arthrosis resulting in multilevel foraminal narrowings. The facet joints are normal without evidence of dislocation, subluxation. Prevertebral Soft Tissues: The prevertebral soft tissues are normal in thickness without evidence of mass or abnormal fluid collection. Additional Findings: No other significant findings are noted in the visualized soft tissue structures or bony elements. IMPRESSION: 1. No evidence of acute fracture or dislocation. 2. Advanced degenerative cervical spondylosis. (as outlined) Electronically signed by Diogenes Escobedo 08-12-2025 09:24 AM Chest X-Ray 08/12/25 06:38 Clinical History: Trauma Technique: A frontal view of the chest was obtained Findings: There are no confluent pulmonary infiltrates. The heart is mildly enlarged. No pleural effusion or pneumothorax is seen. There is no definite pulmonary nodule. No fracture is noted. No foreign body is seen Impression: Mild cardiomegaly Electronically signed by Robbi Mcdowell 08-12-2025 08:[address] 08/12/25 06:38 EXAM: CT head/brain wo con CLINICAL HISTORY: Trauma TECHNIQUE: Axial non-contrast CT scan of the brain was performed from the skull base to the high parietal region in axial, sagittal and coronal reconstructions. One of the following dose reduction techniques were utilized for this exam: Automated exposure control, adjustment of the mA and/or kV according to patient size, use of iterative reconstruction. COMPARISON: CT head/brain without contrast 02/11/2025. FINDINGS: Brain Parenchyma: Normal attenuation of the cerebral hemispheres, cerebellum, and brainstem. No evidence of acute infarct, hemorrhage, or mass effect. No abnormal areas of hypo- or hyperattenuation. Ventricular System: Mild dilatation of intra- and extra-axial CSF spaces, bilateral sylvian fissure, and interhemispheric fissure, along with prominence of cerebellar folia noted. Subarachnoid Spaces: David cisterna magna. No evidence of subarachnoid hemorrhage or extra-axial fluid collections. Cerebellum and Brainstem: No masses, lesions, or areas of abnormal density. Orbits: Normal appearance of the globes, optic nerves, and extraocular muscles. No evidence of orbital masses or abnormal density. Sinuses: Clear paranasal sinuses. No evidence of sinusitis or mucosal thickening. Mastoid Air Cells: Clear mastoid air cells. No evidence of mastoiditis. Skull: Normal skull morphology. Mild deviation of the nasal septum toward the left with small bony nasal spur in the left nasal cavity. IMPRESSION: 1. No acute intracranial abnormality demonstrated. 2. No skull fracture identified. 3. Senile cerebral and cerebellar involutional changes. Stable. Electronically signed by Diogenes Escobedo 08-12-2025 09:08 AM Elbow X-Ray 08/12/25 06:39 Clinical History: Trauma 3 views of the left elbow are submitted for review. 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 No significant arthritic changes are noted. No other osseous abnormality is identified. There are no radiopaque foreign bodies. Impression: 1. No definite acute pathology 2. Suspected old injury of the triceps tendon Electronically signed by Robbi Mcdowell 08-12-2025 08:28 AM Knee X-Ray 08/12/25 06:39 Clinical History: Trauma 4 views of the left knee are submitted for review. Comparison is made to the prior examination dated 04/26/2025 Findings: No fracture is seen. There is an unchanged left knee total arthroplasty in expected position. There is no definite sign of infection or loosening. No other osseous abnormality is identified. There are no radiopaque foreign bodies. Vascular calcifications are present Impression: Unchanged left knee replacement Electronically signed by Robbi Mcdowell 08-12-2025 08:29 AM Knee X-Ray 08/12/25 06:39 Clinical History: Trauma 3 views of the right knee are submitted for review. Comparison is made to the prior examination dated 08/04/2024 Findings: There is a questionable nondisplaced fracture of the medial femoral condyle. There is mild fragmentation of the superior patella that is likely chronic. There is an unchanged right knee total arthroplasty. There is no definite sign of infection or loosening. No other osseous abnormality is identified. There are no radiopaque foreign bodies. Vascular calcifications are present Impression: 1. Questionable nondisplaced fracture of the medial femoral condyle 2. Unchanged right knee replacement ACT 112: Positive. There are findings on this exam that require communication between the performing entity and the patient following Patient Test Result Information Act ([place] ACT 112) guidelines. Electronically signed by Robbi Mcdowell 08-12-2025 08:20 AM Elbow X-Ray 08/12/25 07:52 Clinical History: Trauma 4 views of the right elbow are submitted for review. Findings: There is chronic heterotopic ossification adjacent to the lateral epicondyle of the humerus. No definite acute fracture is seen No subluxation or dislocation is seen. No significant arthritic changes are noted. No other osseous abnormality is identified. There are no radiopaque foreign bodies. Impression: No definite fracture after injury Electronically signed by Robbi Mcdowell 08-12-2025 08:22 AM Discharge Plan Visit Data Chief Complaint: Fall Stated Complaint: multiple GLFs, bilat knee and shoulder pain, +BT ED Provider: Jabari Rivera Discharge Problem: Weakness, Fall, Rhabdomyolysis, Atrial fibrillation, Anticoagulated, Elevated troponin Patient Disposition: Admitted As Inpatient Condition: Fair Discharge Instructions Interventions: ED Discharge Assessment Last Done: 08/12/25 11:06 Discharge Problem: Fall Qualifiers: Encounter type: initial encounter Qualified Code(s): W19.XXXA - Unspecified fall, initial encounter Rhabdomyolysis Qualifiers: Rhabdomyolysis type: traumatic Encounter type: initial encounter Qualified Code(s): T79.6XXA - Traumatic ischemia of muscle, initial encounter Atrial fibrillation Qualifiers: Atrial fibrillation type: unspecified Qualified Code(s): I48.91 - Unspecified atrial fibrillation
[2025-08-12 06:57] LABS: Hematocrit (blood only) 41.9 % (42.0-52.0); Hemoglobin 14.4 g/dL (14.0-18.0); Immature Granulocytes # (auto) 0.09 K/uL (0.01-0.20); Immature Granulocytes % (auto) 0.8 %; Mean Corpuscular Hemoglobin 31.8 pg (25.0-34.0); Mean Corpuscular Volume 92.5 fL (80.0-100.0); Platelet Count 142 K/uL (130-400); RDW Standard Deviation 46.4 fL (36.4-46.3); Red Blood Count 4.53 M/uL (4.70-6.10); White Blood Count 11.10 K/ul (4.8-10.8)
[2025-08-12 07:17] LABS: Alanine Aminotransferase 16.0 U/L (7-52); Albumin Globulin Ratio 1.8 (0.9-2); Albumin Level 4.1 gm/dl (3.4-5.0); Alkaline Phosphatase 59.0 U/L (34-104); Anion Gap 8.0 (3-11); Bilirubin,Total 0.9 mg/dl (0.2-1.0); Blood Urea Nitrogen 28.0 mg/dl (6-23); Calcium 9.9 mg/dl (8.6-10.3); Carbon Dioxide 28.0 mmol/L (21-32); Chloride 104.0 mmol/L (98-107); Creatine Kinase 664.0 U/L (30-223); Creatinine Clr Calc Pharmacy 63.8 ml/min; Globulin 2.3 gm/dl (2.5-4.0); Glucose 114.0 mg/dl (70-99(Fasting)); Lipase 5.0 U/L (11-82); Magnesium 1.8 mg/dl (1.7-2.4); Potassium 3.8 mmol/L (3.5-5.1); Sodium 140.0 mmol/L (136-145); Total Protein 6.4 gm/dl (6.0-8.3)
[2025-08-12 07:32] LABS: Thyroid Stimulating Hormone 2.423 uIu/ml (0.300-4.500)
[2025-08-12 07:33] LABS: INR 1.1 (0.9-1.1); Partial Thromboplastin Time 28 Seconds (21-31); Prothrombin Time 11.7 Seconds (9.0-12.0)
[2025-08-12 08:15] LABS: Appearance Urine Clear (Clear); Bacteria Urine Automated None Seen (None Seen); Cast Urine Automated 0-2 /lpf (0-2); Epithelial Cell Urine Auto 0-2 /hpf (0-2); Glucose Urine UA Negative (Negative); RBC Urine Automated 0-2 /hpf (0-2); WBC Urine Automated 0-5 /hpf (0-5)
--- NOTE | 2025-08-12 08:20 | XRay Report ---
Clinical History: Trauma 3 views of the right knee are submitted for review. Comparison is made to the prior examination dated 08/04/2024 Findings: There is a questionable nondisplaced fracture of the medial femoral condyle. There is mild fragmentation of the superior patella that is likely chronic. There is an unchanged right knee total arthroplasty. There is no definite sign of infection or loosening. No other osseous abnormality is identified. There are no radiopaque foreign bodies. Vascular calcifications are present Impression: 1. Questionable nondisplaced fracture of the medial femoral condyle 2. Unchanged right knee replacement ACT 112: Positive. There are findings on this exam that require communication between the performing entity and the patient following Patient Test Result Information Act ([place] ACT 112) guidelines. Electronically signed by Robbi Mcdowell 08-12-2025 08:20 AM
[2025-08-12] MEDS: MoRPHine SULFATE 2 MG/ML CARP IV STA (08:22)
[2025-08-12] MEDS: ACETAMINOPHEN 1,000 MG/100 ML VIAL IV STA (08:22)
[2025-08-12] MEDS: SODIUM CHLORIDE 0.9% 500 ML IV ONE (08:22)
--- NOTE | 2025-08-12 08:22 | XRay Report ---
Clinical History: Trauma 4 views of the right elbow are submitted for review. Findings: There is chronic heterotopic ossification adjacent to the lateral epicondyle of the humerus. No definite acute fracture is seen No subluxation or dislocation is seen. No significant arthritic changes are noted. No other osseous abnormality is identified. There are no radiopaque foreign bodies. Impression: No definite fracture after injury Electronically signed by Robbi Mcdowell 08-12-2025 08:22 AM
[2025-08-12] MEDS: ONDANSETRON INJ 2 MG/ML 2 ML VIAL IV STA (08:23)
--- NOTE | 2025-08-12 08:27 | XRay Report ---
Clinical History: Trauma Technique: A frontal view of the chest was obtained Findings: There are no confluent pulmonary infiltrates. The heart is mildly enlarged. No pleural effusion or pneumothorax is seen. There is no definite pulmonary nodule. No fracture is noted. No foreign body is seen Impression: Mild cardiomegaly Electronically signed by Robbi Mcdowell 08-12-2025 08:27 AM
--- NOTE | 2025-08-12 08:28 | XRay Report ---
Clinical History: Trauma 3 views of the left elbow are submitted for review. 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 No significant arthritic changes are noted. No other osseous abnormality is identified. There are no radiopaque foreign bodies. Impression: 1. No definite acute pathology 2. Suspected old injury of the triceps tendon Electronically signed by Robbi Mcdowell 08-12-2025 08:28 AM
--- NOTE | 2025-08-12 08:29 | XRay Report ---
Clinical History: Trauma 4 views of the left knee are submitted for review. Comparison is made to the prior examination dated 04/26/2025 Findings: No fracture is seen. There is an unchanged left knee total arthroplasty in expected position. There is no definite sign of infection or loosening. No other osseous abnormality is identified. There are no radiopaque foreign bodies. Vascular calcifications are present Impression: Unchanged left knee replacement Electronically signed by Robbi Mcdowell 08-12-2025 08:29 AM
--- NOTE | 2025-08-12 09:08 | CT Scan Report ---
EXAM: CT head/brain wo con CLINICAL HISTORY: Trauma TECHNIQUE: Axial non-contrast CT scan of the brain was performed from the skull base to the high parietal region in axial, sagittal and coronal reconstructions. One of the following dose reduction techniques were utilized for this exam: Automated exposure control, adjustment of the mA and/or kV according to patient size, use of iterative reconstruction. COMPARISON: CT head/brain without contrast 02/11/2025. FINDINGS: Brain Parenchyma: Normal attenuation of the cerebral hemispheres, cerebellum, and brainstem. No evidence of acute infarct, hemorrhage, or mass effect. No abnormal areas of hypo- or hyperattenuation. Ventricular System: Mild dilatation of intra- and extra-axial CSF spaces, bilateral sylvian fissure, and interhemispheric fissure, along with prominence of cerebellar folia noted. Subarachnoid Spaces: David cisterna magna. No evidence of subarachnoid hemorrhage or extra-axial fluid collections. Cerebellum and Brainstem: No masses, lesions, or areas of abnormal density. Orbits: Normal appearance of the globes, optic nerves, and extraocular muscles. No evidence of orbital masses or abnormal density. Sinuses: Clear paranasal sinuses. No evidence of sinusitis or mucosal thickening. Mastoid Air Cells: Clear mastoid air cells. No evidence of mastoiditis. Skull: Normal skull morphology. Mild deviation of the nasal septum toward the left with small bony nasal spur in the left nasal cavity. IMPRESSION: 1. No acute intracranial abnormality demonstrated. 2. No skull fracture identified. 3. Senile cerebral and cerebellar involutional changes. Stable. Electronically signed by Diogenes Escobedo 08-12-2025 09:08 AM
--- NOTE | 2025-08-12 09:25 | CT Scan Report ---
EXAM: CT cervical spine wo con CLINICAL HISTORY: Trauma. TECHNIQUE: CT scan of the cervical spine was performed without the administration of intravenous contrast. Contiguous axial images were obtained from the skull base to the upper thoracic spine. Coronal and sagittal reformatted images were also reviewed. One of the following dose reduction techniques was utilized for this exam. Automated exposure control, adjustment of the mA and/or kV according to patient size, and use of iterative reconstruction. COMPARISON: No previous studies are available for comparison. FINDINGS: Degraded images due to motion artifact, obscuring the field of view in the cervical spine. Vertebrae: No gross fracture was seen; however, a hairline fracture cannot be properly assessed cervical spine. Multilevel marginal bone hypertrophy. No signs of lytic or sclerotic lesions. Normal configuration of the posterior elements. Intervertebral Discs: The intervertebral disc spaces are reduced. Multilevel disc bulge and discal calcification noted. Facet Joints: Multilevel facet joint arthrosis resulting in multilevel foraminal narrowings. The facet joints are normal without evidence of dislocation, subluxation. Prevertebral Soft Tissues: The prevertebral soft tissues are normal in thickness without evidence of mass or abnormal fluid collection. Additional Findings: No other significant findings are noted in the visualized soft tissue structures or bony elements. IMPRESSION: 1. No evidence of acute fracture or dislocation. 2. Advanced degenerative cervical spondylosis. (as outlined) Electronically signed by Diogenes Escobedo 08-12-2025 09:24 AM
--- NOTE | 2025-08-12 10:18 | History & Physical Report ---
Date of Service August 12, 2025 Assessment & Plan (1) Weakness: (2) HTN (hypertension): (3) Elevated troponin: (4) Atrial fibrillation: (5) (HFpEF) heart failure with preserved ejection fraction: (6) Complex sleep apnea syndrome: Plan 80-year-old male reports he has had chronic progressive strength loss globally but most notably in his legs over the last year. He fell sideways last night after attempting to pick something up from the floor and felt too weak to stand. He denies pain limitation and notes he is unable to stand due to feeling overall too weak. He has not had any sensory change, no strokes, no back pain, no saddle anesthesia or history of lumbar stenosis. He reports he has not been eating and drinking as well recently, and did not notice a sudden strength loss but felt his legs progressively worsened to where he can no longer stand easily. He was pending to move into [place] in 2 weeks. He reports he is on the ground for about 3 hours before he was able to pull himself into his recliner where he slept overnight, his ex- came to help him in the morning but due to severe weakness and inability to help get changed brought him back to the ER. He denies any infectious symptoms. He has not had chest pain at any point. Denies dyspnea. Repeat Tertiary Exam Expected 08/13 Weakness, fall without head strike or loss of consciousness Progressive overall several months No numbness/tingling. No saddle anesthesia. No territorial distribution suggestive of CVA, no back pain or sensory changes/radiculopathy. Mild leukocytosis without left shift suspected demargination. Afebrile. Denies respiratory, abdominal, urinary and other infectious symptoms. UA is bland. PT/OT CM consulted [facility], CTC-spine, chest x-ray, left knee x-ray, left elbow x-ray without acute fracture. Right knee x-ray with possible femoral condyle fracture as otherwise noted - No saddle anesthesia. R>L weakness. No bowel/bladder incontinence. +hx lumbar spondylosis and L1 compression wedge fxr. No sensory loss. F/u lumbar eval with spine. No radiculopathy. MRI-L spine pending, anticipate outpatient followup. Can trial steroid course Possible right medial femoral condyle nondisplaced fracture. He is not interested in surgery. D/w surgery. Pending knee brace. WBAT and office followup. Left elbow hematoma Marked with surgical pen. More than 12 hours old. Minimally tender Increased risk of VTE in the setting of trauma balanced against elbow hematoma Will place on Lovenox PPx dose on admission, if has any expansion hold this. If stable x 24-36 hours then can transition back to Eliquis which he was on for A-fib Troponin elevation, A-fib, hypertension Troponin elevated suspect demand with volume contraction and A-fib No chest pain at any point EKG: A-fib. Left bundle redemonstrated. Does not meet Sgarbossa criteria. Troponin repeat downtrending Follow on telemetry Continue metoprolol, ARB TSH normal Rhabdomyolysis Mild, CK664. Some volume contraction was laying on the ground for several hours Cautious use of fluids due to history of heart failure on Lasix P.o. fluids encouraged. Given 500 cc NSS in the ER. Lasix continued Repeat CK in the morning, as long as this is mild encourage p.o. and treatment steps as indicated. Creatinine is at baseline DVT PPx: Lovenox per injury alert guidelines. transition back to eliquis if hgb and clinical exam stable CODE: DNR/DNI History of Present Illness Primary Care Provider: Megan Grey DO Elder reports he was in the kitchen getting crackers out of the cupboard, went to pick them up and lost his balance and fell on the floor and could not get up. 'I crawled around for 3 hours' and didn't feel strong enough to get up. Crawled to the living room and pulled himself up into the recliner. Still felt weak this morning and was too weak to get to the bathroom. Called his ex- who could not help him change his pants or get to the bathroom due to his severe weakness, called police/ems and then he was brought to the hospital. Elder felt he could not get up because he was so weak. Denies pain limitation. Has been getting weak for 'some time now'. Endorses weakness in both legs worsening over the last year. Denies lightheadedness or dizziness. Denies syncope/presyncope. Endorses arthritis, but feels he is more weak than pain limited. He feels he scraped up his knees and elbow trying to crawl to the bathroom. Did hit his LEFT elbow against the barstool as he fell. No vision change. No dysarthria. no aphasia. Denies feeling sick. Endorses history of heart failure no recent orthopnea or leg swelling. Denies chest pain/angina/dyspnea Endorses arthritis and 2 knee replacements int he past Endorses HTN Endorses abdominal wall hernia, not painful to him HLD He is on eliquis for Afib. No history of blood clots Did no eliquis this AM. He took eliquis last night. He is scheduled to go to [facility] in 2 weeks. hx R hand carpal tunnel. s/p steroid shot in R hand this past week Medical History: Reviewed Medications: Reviewed Surgical History: Reviewed Family history: Reviewed Allergies: Reviewed Social History: No tobacco use. Drinks ETOH. 2 drinks last night. Normally has 1 martini and 1 glass of wine per night. Has not gone without any alcohol for more than 3 days since the summer. No history of withdrawal. 1.5oz of vodka. One glass of wine, a bottle lasts ~ 3 days. Code Status: DNR/DNI Allergies Allergy/AdvReac Type Severity Reaction Status Date / Time Sulfa (Sulfonamide Allergy Severe RASH, Verified 08/03/25 10:18 Antibiotics) HIVES,SWELLING Home Medications Medication Instructions Recorded Confirmed Type simvastatin 20 mg tablet 20 mg PO DAILY #90 tabs 09/05/24 08/12/25 Rx doxazosin 4 mg tablet 6 mg PO DAILY 10/03/24 08/12/25 History lansoprazole 30 mg capsule,delayed 30 mg PO Q OTHER DAY 10/03/24 08/12/25 History release mecobalamin (vitamin B12) 1,000 1,000 mcg sublingual HS 12/21/24 08/12/25 History mcg disintegrating tablet,sublingual allopurinol 300 mg tablet 300 mg PO DAILY 02/11/25 08/12/25 History apixaban 5 mg tablet (Eliquis) 5 mg PO BID 02/11/25 08/12/25 History multivitamin 1 tab PO DAILY 02/11/25 08/12/25 History metoprolol succinate 25 mg 37.5 mg (1.5 x 25 mg) PO DAILY 04/26/25 08/12/25 Rx tablet,extended release 24 hr #135 tabs olmesartan 20 mg tablet 20 mg PO DAILY #90 tabs 04/26/25 08/12/25 Rx potassium chloride 10 mEq 10 meq PO DAILY PRN Take with 08/03/25 08/12/25 Rx tablet,extended release Lasix #90 tabs furosemide 40 mg tablet 40 mg PO Q2D PRN Lower extremity 08/12/25 08/12/25 History edema Past Med/Surg History Problem List Elevated troponin (Acute) Anticoagulated (Acute) Atrial fibrillation (Acute) Rhabdomyolysis (Acute) Fall (Acute) Weakness (Acute) Ambulatory dysfunction Weakness HTN (hypertension) (Acute) Carpal tunnel syndrome on both sides Sensory polyneuropathy Nocturnal hypoxemia Complex sleep apnea syndrome Low magnesium level (Acute) Low vitamin B12 level (HFpEF) heart failure with preserved ejection fraction Dyslipidemia Lumbar disc disease LVH (left ventricular hypertrophy) Diverticulosis (Chronic) Ventral hernia (Chronic) PVCs (premature ventricular contractions) (Chronic) Obstructive sleep apnea (Chronic) 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) Left bundle branch block (Chronic) Gout, joint (Chronic) Degenerative joint disease, 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 (Chronic) Chronic reflux esophagitis (Chronic) Allergic rhinitis (Chronic) Medical History Atrial fibrillation ETD (eustachian tube dysfunction) Painful total knee replacement, left Congestive heart failure Olecranon bursitis Trochanteric bursitis Clostridium difficile infection Hemangioendothelioma of liver Esophageal stricture Ulcer of esophagus with bleeding Hypomagnesemia Surgical History S/p bilateral myringotomy with tube placement History of bilateral knee replacement H/O colonoscopy (~01/2017) S/P tonsillectomy Hx of total knee arthroplasty Family History Family/Other Coronary heart disease Environmental allergies Mother Hearing loss Hypertension Breast cancer Father Cardiac disorder Hypertension Heart disease Other No family history of adverse response to anesthesia No family history of bleeding disorder Social History Smoking Status: Former smoker Tobacco Type: Cigarettes, Pipe and Cigars Age Started Using Tobacco: 15; Age Quit Using Tobacco: 48; packs per day: 2; Second Hand Exposure: No; Do You Dip or Chew Tobacco: No; Tobacco Cessation Education Requested by Patient: No Hx Alcohol Use: Yes Alcohol type: hard liquor Alcohol Intake Frequency: 4 or More x per/Week Alcohol Intake Frequency Comment: 1 glass of wine or a martini per day Hx Substance Use: No Preferred Language: Argentine Communication Ability: Effective Digital Marketer Required: No Beliefs That Will Affect Care: None marital status: / Current Living Situation: Alone current occupational status: retired How many Children do You have: 2 Other Information That Helps Us Care for You: No Feels Safe at Home: Yes Safety Concerns: Feels Safe At This Time Childhood Exposure to Second-Hand Smoke: No Dental Care, Regularly: Yes Physical Activity Frequency: Does not Exercise Seatbelt Use: always Sunscreen Use: No Assistive Devices: Walker Physical Exam Physical Exam: General: A&Ox3. NAD. Cooperative. Spine: No midline or paraspinal tenderness. No occiput tenderness. HEENT: Atraumatic, normocephalic. PERLAA. EOM intact without nystagmus. Vision/hearing grossly intact Pulm: CTAB A&P. -wheezes, -rales, -rhonchi. Symmetrical chest rise. No increased work of breathing. No respiratory distress. Cardiac: irir, soft sm. Rate controlled Radial pulses intact and symmetrical. Abdominal: Nontender, nondistended, soft. BS present. +reducible nontender ventral abdominal hernia. L anterior knee abrasion. b/l knee mild pinkness w/o sharply demarcated erythema. R Knee TTP at medial join line. L elbow hematoma. [id number] R medial elbow hematoma. Marked with surgical pen Sensation to soft touch intact in hands and feet to soft touch. No saddle anesthesia 5/5 planning advisor strength, elbow flexion, shoulder flexion, ankle dorsi/plantarflexion b/l. 4-/5 hip flexion b/l and fatigues easily R>L. No Results & Data Results & Data Vital Signs (Past 12 Hours) Vital Signs Temp Pulse Pulse Resp BP BP Pulse Ox 08/12/25 09:51 82 20 169/95 H 95 08/12/25 08:22 86 21 148/81 H 97 08/12/25 06:59 101 H 20 93 08/12/25 06:39 36.7 C 101 H 20 139/106 H 93 O2 Del Method 08/12/25 09:51 Room Air 08/12/25 08:22 Room Air 08/12/25 06:59 Room Air 08/12/25 06:39 Room Air PG Care Time/CCT Total # of Minutes Spent Total Time Spent with Patient: Total time spent is greater than 50% in coordination of care (as documented) at patient's floor/unit and/or counseling patient: Coding Level of Care Code 52940 INT INP/OBS CARE 3/75MIN Diagnoses Weakness R53.1 HTN (hypertension) I10 Elevated troponin R79.89 Atrial fibrillation I48.91 (HFpEF) heart failure with preserved ejection fraction I50.30 Complex sleep apnea syndrome G47.39
[2025-08-12] MEDS ORDERED: POTASSIUM CHLORIDE 10 MEQ TABCR PO PRN (10:47)
[2025-08-12] MEDS ORDERED: ONDANSETRON INJ 2 MG/ML 2 ML VIAL IV PRN (11:06)
[2025-08-12] MEDS: METOPROLOL SUCC 25MG EXT REL TAB PO SCH (12:39)
[2025-08-12] MEDS: LOSARTAN POTASSIUM 50 MG TAB PO SCH (12:42)
[2025-08-12] MEDS: ENOXAPARIN INJ 40 MG/0.4 ML SYR SQ SCH (12:43)
[2025-08-12] MEDS ORDERED: LORazepam 0.5 MG TAB PO PRN (16:04)
--- NOTE | 2025-08-12 18:51 | XRay Report ---
EXAM: Orbits for MRI EXAM REASON: Screening for foreign body COMPARISON: No prior examinations available for comparison TECHNIQUE: AP and lateral views of the orbits were obtained FINDINGS: There is no evidence of acute fracture or dislocation. Metallic stents for multiple dental implants are present. There are no additional metallic density foreign bodies identified in the included [id number]. IMPRESSION: No contraindications for MRI Electronically signed by Noman Malhotra 08-12-2025 6:50 PM
[2025-08-12] MEDS: CYANOCOBALAMIN (B-12) 500 MCG TABLET PO SCH (21:25)
[2025-08-12] MEDS: MELATONIN 3 MG TAB PO PRN (23:10)
[2025-08-13 06:43] LABS: Hematocrit (blood only) 39.3 % (42.0-52.0); Hemoglobin 13.4 g/dL (14.0-18.0); Immature Granulocytes # (auto) 0.06 K/uL (0.01-0.20); Immature Granulocytes % (auto) 0.6 %; Mean Corpuscular Hemoglobin 32.2 pg (25.0-34.0); Mean Corpuscular Volume 94.5 fL (80.0-100.0); Platelet Count 145 K/uL (130-400); RDW Standard Deviation 47.1 fL (36.4-46.3); Red Blood Count 4.16 M/uL (4.70-6.10); White Blood Count 10.59 K/ul (4.8-10.8)
[2025-08-13 07:02] LABS: Anion Gap 6.0 (3-11); Blood Urea Nitrogen 28.0 mg/dl (6-23); Calcium 9.0 mg/dl (8.6-10.3); Carbon Dioxide 27.0 mmol/L (21-32); Chloride 104.0 mmol/L (98-107); Creatine Kinase 324.0 U/L (30-223); Creatinine Clr Calc Pharmacy 61.0 ml/min; Glucose 112.0 mg/dl (70-99(Fasting)); Potassium 3.9 mmol/L (3.5-5.1); Sodium 137.0 mmol/L (136-145)
--- NOTE | 2025-08-13 09:34 | Electrocardiogram Report ---
Test Reason : Blood Pressure : */* mmHG Vent. Rate : 96 BPM Atrial Rate : 93 BPM P-R Int : 192 ms QRS Dur : 142 ms QT Int : 394 ms P-R-T Axes : 256 -66 98 degrees QTcB Int : 497 ms Probable Atrial fibrillation with premature ventricular or aberrantly conducted complexes Left axis deviation Left bundle branch block Abnormal ECG When compared with ECG of 21-Feb-2025 17:57, Atrial fibrillation now present Confirmed by Alfie Reveles ([id number]) on 08/13/2025 9:34:16 AM Referred By: REFERRED SELF Confirmed By: Alfie Reveles
[2025-08-13] MEDS: DOXAZosin MESYLATE TAB 2 MG TAB PO SCH (10:17)
[2025-08-13] MEDS: MULTIVITAMIN TAB PO SCH (10:19)
--- NOTE | 2025-08-13 11:29 | Hospitalist Progress Note ---
Date of Service August 13, 2025 Assessment & Plan (1) Weakness: (2) HTN (hypertension): (3) Elevated troponin: (4) Atrial fibrillation: (5) (HFpEF) heart failure with preserved ejection fraction: (6) Complex sleep apnea syndrome: Plan 80-year-old male reports he has had chronic progressive strength loss globally but most notably in his legs over the last year. He fell sideways last night after attempting to pick something up from the floor and felt too weak to stand. He denies pain limitation and notes he is unable to stand due to feeling overall too weak. He has not had any sensory change, no strokes, no back pain, no saddle anesthesia or history of lumbar stenosis. He reports he has not been eating and drinking as well recently, and did not notice a sudden strength loss but felt his legs progressively worsened to where he can no longer stand easily. He was pending to move into [place] in 2 weeks. He reports he is on the ground for about 3 hours before he was able to pull himself into his recliner where he slept overnight, his ex- came to help him in the morning but due to severe weakness and inability to help get changed brought him back to the ER. He denies any infectious symptoms. He has not had chest pain at any point. Denies dyspnea. Repeat Tertiary Exam Expected 08/13 Weakness, fall without head strike or loss of consciousness Progressive overall several months No numbness/tingling. No saddle anesthesia. No territorial distribution suggestive of CVA, no back pain or sensory changes/radiculopathy. Mild leukocytosis without left shift suspected demargination. Afebrile. Denies respiratory, abdominal, urinary and other infectious symptoms. UA is bland. CM consulted [facility], CTC-spine, chest x-ray, left knee x-ray, left elbow x-ray without acute fracture. Right knee x-ray with possible femoral condyle fracture as otherwise noted - No saddle anesthesia. R>L weakness. No bowel/bladder incontinence. +hx lumbar spondylosis and L1 compression wedge fxr. No sensory loss. F/u lumbar eval with spine. No radiculopathy. MRI-L deferred by pt, prefers outpt followup for chronic symptoms. Will trial dexamethasone 6mg to see if this helps with his strength. Possible right medial femoral condyle nondisplaced fracture. He is not interested in surgery. D/w ortho on admit. WBAT while in brace and office followup. PT/OT pending. WBAT RLE while in hinged brace. Locked hinge brace applied 08/13/25. Paperwork completed and placed in patients chart Left elbow hematoma Marked with surgical pen. More than 12 hours old. Minimally tender. Increased risk of VTE in the setting of trauma balanced against elbow h ematoma, was placed on lovenox ppx on admit while eliquis held - Hematoma expansion 08/13. Borders marked. Neurovascularly intact. Lovenox and eliquis held. Follow for stability. Discussed risk of both DVT and afib thromboembolic CVA while anticoagulation is held with pt and son at bedside. Troponin elevation, A-fib, hypertension Troponin elevated suspect demand with volume contraction and A-fib No chest pain at any point EKG: A-fib. Left bundle redemonstrated. Does not meet Sgarbossa criteria. Troponin repeat downtrending Continue metoprolol, ARB TSH normal Rhabdomyolysis Mild, CK664. Some volume contraction was laying on the ground for several hours. CK downtrending on repeat. Cautious use of fluids due to history of heart failure on Lasix. P.o. fluids encouraged. Given 500 cc NSS in the ER. Lasix resumed DVT PPx: SCDs, lovenox held due to hematoma expansion CODE: DNR/DNI Dispo: PT/OT pending Admission and Anticipated Discharge Date Admission Date: August 12, 2025 Subjective Seen at the bedside L elbow with hematoma expansion last night. Mild pain, no increased pain this AM. No numbness/tingling [employer] strength 5/5. Sensation intact in fingertips. pulse intact. Cap refill brisk. Borders marked with surgical pen Is eager to get out of bed. Does not yet have brace available. CBP post op brace obtained, paperwork completed and placed in chart. Applied to R knee and secured with comfortable fitment. May engage with PT NWB RLW and be OOB to chair No chest pain/chest pressure No headache Physical Exam Physical Exam: Tertiary Physical Exam: General: - Alert: Yes - Oriented: Yes - GCS 15: Yes HEENT: - No pain/tenderness. - No lacerations/abrasions - No numbness/tingling - PERLAA. Normal Visual Acuity. N o visual field cuts. No nystagmus. No contact lenses. Normal hearing. No relative afferent pupillary defect. No facial asymmetry. Normal palatal elevation, uvula midline. Midline tongue protrusion. Shoulder shrug with 5/5 strength bilaterally. - Mucous membranes moist. Neck: - Midline Tenderness: No - Cleared C-Spine: Yes Thorax: - Pain/Tenderness: None - Lacerations/Abrasions: None - Swelling/Ecchymosis: None - Air/Bony Creptius: None Cardiopulmonary: - IRIR, soft sm. No murmurs, rubs or gallops. - Breath sounds CTAB. No wheezes, rales, or rhonchi. - Symmetrical Chest Rise Abdomen - Pain/Tenderness: None - Lacerations/Abrasions: None - No abdominal distension - Abdominal rigidity/guarding: No ne - Bowel Sounds: Present, normal - Pelvis stable Back/Spine - Lacerations/Abrasions: None - Swelling/Ecchymosis: None - Pain/Tenderness: None - Step-offs: None Extremities: - RUE: No deformity. No laceratio ns/abrasions. No swelling/ecchymosis. No pain/tenderness. Full active and passive range of motion. [employer] strength, elbow flexion/extension, shoulder flexion/extension/abduction/adduction/external rotation/internal rotation intact with 5/5 strength. Sensation intact to soft touch without deficit. Radial pulse intact, cap refill in the thumb <2 seconds. - LUE: Medial elbow with expansio n of hematoma. Borders marked. Soft. Mildly TTP. [employer] Estimator strength, elbow flexion/extension, shoulder flexion/extension/abduction/adduction/external rotation/internal rotation intact with 5/5 strength. Sensation intact to soft touch without deficit. Radial pulse intact, cap refill in the thumb <2 seconds. - LLE: No deformity. superficial abrasion on L knee, some pinkness. No swelling/ecchymosis. No pain/tenderness. Full active and passive range of motion. Hip flexion, knee flexion/extension, ankle dorsiflexion/plantarflexion with 5/5 strength but fatigues easily. Sensation intact to soft touch without deficit. PT pulse intact to palpation, cap refill in the hallux <2 seconds. - RLE: No deformity. +knee swelli ng, slight pinkness. TTP at medial joint line. Locked knee brace applied. Hip flexion 3/5. Sensation to soft touch in toes intact without deficit, PT pulse intact to palpation. Cap refill in the hallux <2 seconds. Results & Data Results & Data Vital Signs (Past 12 Hours) Vital Signs Temp Pulse Pulse Resp BP Pulse Ox O2 Del Method 08/13/25 08:02 36.7 C 78 20 159/91 H 95 Room Air 08/13/25 04:08 36.6 C 74 16 152/82 H 92 Room Air 08/12/25 23:30 37.6 C H 82 16 121/75 91 Room Air 08/12/25 22:56 87 PG Care Time/CCT Total # of Minutes Spent Total Time Spent with Patient: Total time spent is greater than 50% in coordination of care (as documented) at patient's floor/unit and/or counseling patient: Coding Level of Care Code 99454 SUB INP/OBS CARE 3/50MIN Diagnoses Weakness R53.1 HTN (hypertension) I10 Elevated troponin R79.89 Atrial fibrillation I48.91 (HFpEF) heart failure with preserved ejection fraction I50.30 Complex sleep apnea syndrome G47.39
[2025-08-13] MEDS: SERTRALINE HCL 50 MG TABLET PO SCH (11:33)
[2025-08-13] MEDS: POTASSIUM CHLORIDE CRTAB 20 MEQ TABCR PO STA (11:36)
[2025-08-13] MEDS: FUROSEMIDE INJ 20 MG/2 ML VIAL IV SCH (11:37)
[2025-08-13 11:41] LABS: Magnesium 1.7 mg/dl (1.7-2.4)
[2025-08-13] MEDS ORDERED: POLYETHYLENE (MIRALAX) 17 GM PACK PO PRN (12:11)
[2025-08-13] MEDS: ACETAMINOPHEN 325 MG TAB PO PRN (18:35)
--- NOTE | 2025-08-13 21:24 | CT Scan Report ---
CT of the left elbow without contrast Technique: Noncontrast x-ray of the left elbow. Coronal and sagittal reformatted images made available for review 2D and 3D reformat images made available for review Reference made to prior plain films date08/12/2025 Findings: No acute fractures or dislocations. Calcification involving the attachment of the triceps tendon to the olecranon likely remote in nature. No effusions. Impression No acute osseous pathology. Electronically signed by Donn Lopez 08-13-2025 9:24 PM
[2025-08-13] MEDS: MELATONIN 3 MG TAB PO PRN (21:34)
[2025-08-13] MEDS: SENNA 8.6 MG TAB PO SCH (21:34)
[2025-08-14 06:58] LABS: Hematocrit (blood only) 36.6 % (42.0-52.0); Hemoglobin 12.7 g/dL (14.0-18.0); Immature Granulocytes # (auto) 0.04 K/uL (0.01-0.20); Immature Granulocytes % (auto) 0.5 %; Mean Corpuscular Hemoglobin 32.5 pg (25.0-34.0); Mean Corpuscular Volume 93.6 fL (80.0-100.0); Platelet Count 134 K/uL (130-400); RDW Standard Deviation 45.9 fL (36.4-46.3); Red Blood Count 3.91 M/uL (4.70-6.10); White Blood Count 8.07 K/ul (4.8-10.8)
[2025-08-14 07:12] LABS: Anion Gap 5.0 (3-11); Blood Urea Nitrogen 28.0 mg/dl (6-23); Calcium 9.3 mg/dl (8.6-10.3); Carbon Dioxide 29.0 mmol/L (21-32); Chloride 104.0 mmol/L (98-107); Creatinine Clr Calc Pharmacy 68.8 ml/min; Glucose 111.0 mg/dl (70-99(Fasting)); Magnesium 1.8 mg/dl (1.7-2.4); Potassium 4.2 mmol/L (3.5-5.1); Sodium 138.0 mmol/L (136-145)
[2025-08-14] MEDS: dexAMETHasone 6 MG in SYRINGE 0 ML IV SCH (08:56)
[2025-08-14] MEDS ORDERED: DEXAMETHASONE SOD INJ 4 MG/ML VIAL IV SCH (09:00)
--- NOTE | 2025-08-14 14:17 | Hospitalist Progress Note ---
Date of Service August 14, 2025 Assessment & Plan (1) Weakness: (2) HTN (hypertension): (3) Elevated troponin: (4) Atrial fibrillation: (5) (HFpEF) heart failure with preserved ejection fraction: (6) Complex sleep apnea syndrome: Plan 80-year-old male reports he has had chronic progressive strength loss globally but most notably in his legs over the last year. He fell sideways last night after attempting to pick something up from the floor and felt too weak to stand. He denies pain limitation and notes he is unable to stand due to feeling overall too weak. He has not had any sensory change, no strokes, no back pain, no saddle anesthesia or history of lumbar stenosis. He reports he has not been eating and drinking as well recently, and did not notice a sudden strength loss but felt his legs progressively worsened to where he can no longer stand easily. He was pending to move into [place] in 2 weeks. He reports he is on the ground for about 3 hours before he was able to pull himself into his recliner where he slept overnight, his ex- came to help him in the morning but due to severe weakness and inability to help get changed brought him back to the ER. He denies any infectious symptoms. He has not had chest pain at any point. Denies dyspnea. Repeat Tertiary Exam 08/13. ##Weakness, fall without head strike or loss of consciousness Progressive overall several months No numbness/tingling/No saddle anesthesia/No territorial distribution suggestive of CVA, no back pain or sensory changes/radiculopathy. Mild leukocytosis without left shift suspected demargination, Afebrile, Denies respiratory, abdominal, urinary and other infectious symptoms, UA without signs of infection CM consulted [facility], CTC-spine, chest x-ray, left knee x-ray, left elbow x-ray without acute fracture. Right knee x-ray with possible femoral condyle fracture as otherwise noted No saddle anesthesia. R>L weakness. No bowel/bladder incontinence. +hx lumbar spondylosis and L1 compression wedge fxr. No sensory loss. F/u lumbar eval with spine. No radiculopathy. MRI-L deferred by pt, prefers outpatient followup for chronic symptoms dexamethasone 6mg IV daily ##Possible right medial femoral condyle nondisplaced fracture. He is not interested in surgery. D/W ortho on admit. WBAT while in brace and office followup. PT/OT pending. WBAT RLE while in hinged brace. Locked hinge brace applied 08/13/25. Paperwork completed and placed in patients chart. ##Left elbow hematoma Marked with surgical pen and more than 12 hours old, no overt tenderness or issues with ROM to left arm/hand Increased risk of VTE in the setting of trauma balanced against elbow hematoma, was placed on Lovenox ppx on admit while eliquis held. With noted Hematoma expansion 08/13, has not exceeded beyond initial marking of borders, neurovascularly intact, Lovenox and Eliquis BOTH held at this time, follow for stability, possible resumption of Eliquis in am ##Troponin elevation, A-fib, hypertension with noted 3 second pause at 1149 (patient asymptomatic) Troponin elevated suspect demand with volume contraction and A-fib No chest pain at any point EKG: A-fib with LBBB Troponin repeat downtrending Continue metoprolol, ARB TSH normal ##Rhabdomyolysis given 500ml of NSS in ED Mild, CK664, some volume contraction was laying on the ground for several hours. CK downtrending on repeat. Cautious use of fluids due to history of heart failure on Lasix oral fluids encouraged takes prn Lasix at home for edema every 1-2 days, currently with no lower extremity edema DVT PPx: SCDs, lovenox and eliquis held in setting of left biceps, elbow hematoma CODE: DNR/DNI Dispo: PT/OT with rec for rehab Admission and Anticipated Discharge Date Admission Date: August 12, 2025 Supervising Physician Co-Signing Physician Notes The patient was not seen by me. The chart was reviewed. Case discussed with LITO Erazo. Agree with assessment and plan. Subjective Reports he is doing well this am. Eating and drinking well. No major pain to left biceps/left elbow area. No additional extension of hematoma to left bicep/left elbow area. Awaiting to work with PT as knee brace has arrived for right knee. Review of Systems Review of Systems: All systems reviewed & are unremarkable except as noted in Subjective Physical Exam Physical Exam: GENERAL APPEARANCE: A&O. Sitting comfortably in bed. NAD. SKIN: Normal color without rashes or lesions. Normal turgor. HEENT: Head AT/NC. Buccal mucosa is moist and pink. NECK: No jugular venous distention. No thyroid enlargement. There is no lymphadenopathy. HEART: RRR without m/g/r. LUNGS: Normal inspiratory effort. CTA without w/r/r. ABDOMEN: No guarding or rigidity. Normoactive BS in all four quadrants. Abdomen soft and NT. MSK: No bony gross/deformities throughout. ROM intact. EXTREMITIES: LUE with medial elbow/left biceps hematoma. Border marking present without overt swelling extending beyond marking. Left radial pulse, left brachia pulse intact with cap refill in left hand fingertips <2seconds. Neuro: CN 2-12 grossly intact. No focal neuro deficits PSYCHIATRIC: Normal affect. Eye contact is good. Speech is normal rate and content. Responses are appropriate. Results & Data Results & Data Vital Signs (Past 12 Hours) Vital Signs Temp Pulse Pulse Resp BP Pulse Ox O2 Del Method 08/14/25 11:33 36.3 C L 67 18 147/67 H 97 Room Air 08/14/25 10:00 64 08/14/25 07:41 36.6 C 73 20 139/83 95 Room Air 08/14/25 03:02 36.3 C L 76 20 167/85 H 98 Room Air PG Care Time/CCT Total # of Minutes Spent Total Time Spent with Patient: Total time spent is greater than 50% in coordination of care (as documented) at patient's floor/unit and/or counseling patient: Coding Level of Care Code 08047 SUB INP/OBS CARE 2/35MIN Diagnoses Weakness R53.1 HTN (hypertension) I10 Elevated troponin R79.89 Atrial fibrillation I48.91 (HFpEF) heart failure with preserved ejection fraction I50.30 Complex sleep apnea syndrome G47.39
--- NOTE | 2025-08-14 18:10 | Communication Note ---
Date of Service: August 14, [address] Wen secondary to 3 second pause occurring at 1149 this am. Will continue to monitor and consider decrease in beta vahid dosing if needed with additional occurrence of pauses and need for outpatient monitor follow up.
[2025-08-15 06:18] LABS: Hematocrit (blood only) 36.7 % (42.0-52.0); Hemoglobin 12.9 g/dL (14.0-18.0); Immature Granulocytes # (auto) 0.04 K/uL (0.01-0.20); Immature Granulocytes % (auto) 0.4 %; Mean Corpuscular Hemoglobin 32.6 pg (25.0-34.0); Mean Corpuscular Volume 92.7 fL (80.0-100.0); Platelet Count 156 K/uL (130-400); RDW Standard Deviation 44.8 fL (36.4-46.3); Red Blood Count 3.96 M/uL (4.70-6.10); White Blood Count 9.30 K/ul (4.8-10.8)
[2025-08-15 06:39] LABS: Anion Gap 7.0 (3-11); Blood Urea Nitrogen 26.0 mg/dl (6-23); Calcium 9.8 mg/dl (8.6-10.3); Carbon Dioxide 27.0 mmol/L (21-32); Chloride 103.0 mmol/L (98-107); Creatinine Clr Calc Pharmacy 80.0 ml/min; Glucose 130.0 mg/dl (70-99(Fasting)); Potassium 4.5 mmol/L (3.5-5.1); Sodium 137.0 mmol/L (136-145)
--- NOTE | 2025-08-15 17:20 | Hospitalist Progress Note ---
Date of Service August 15, 2025 Assessment & Plan (1) Weakness: (2) HTN (hypertension): (3) Elevated troponin: (4) Atrial fibrillation: (5) (HFpEF) heart failure with preserved ejection fraction: (6) Complex sleep apnea syndrome: Plan 80-year-old male reports he has had chronic progressive strength loss globally but most notably in his legs over the last year. He fell sideways last night after attempting to pick something up from the floor and felt too weak to stand. He denies pain limitation and notes he is unable to stand due to feeling overall too weak. He has not had any sensory change, no strokes, no back pain, no saddle anesthesia or history of lumbar stenosis. He reports he has not been eating and drinking as well recently, and did not notice a sudden strength loss but felt his legs progressively worsened to where he can no longer stand easily. He was pending to move into [place] in 2 weeks. He reports he is on the ground for about 3 hours before he was able to pull himself into his recliner where he slept overnight, his ex- came to help him in the morning but due to severe weakness and inability to help get changed brought him back to the ER. He denies any infectious symptoms. He has not had chest pain at any point. Denies dyspnea. Repeat Tertiary Exam 08/13. ##Weakness, fall without head strike or loss of consciousness Progressive overall several months No numbness/tingling/No saddle anesthesia/No territorial distribution suggestive of CVA, no back pain or sensory changes/radiculopathy. Mild leukocytosis without left shift suspected demargination, Afebrile, Denies respiratory, abdominal, urinary and other infectious symptoms, UA without signs of infection CM consulted [facility], CTC-spine, chest x-ray, left knee x-ray, left elbow x-ray without acute fracture. Right knee x-ray with possible femoral condyle fracture as otherwise noted No saddle anesthesia. R>L weakness. No bowel/bladder incontinence. +hx lumbar spondylosis and L1 compression wedge fxr. No sensory loss. F/u lumbar eval with spine. No radiculopathy. MRI-L deferred by pt, prefers outpatient followup for chronic symptoms dexamethasone 6mg IV daily-->consider oral taper upon discharge as he has received short course of IV steroid with improvement to strength in lower ext ##Possible right medial femoral condyle nondisplaced fracture. He is not interested in surgery. D/W ortho on admit. WBAT while in brace and office followup. PT/OT pending. WBAT RLE while in hinged brace. Locked hinge brace applied 08/13/25. Paperwork completed and placed in patients chart. ##Left elbow hematoma Marked with surgical pen and more than 12 hours old, no overt tenderness or issues with ROM to left arm/hand Increased risk of VTE in the setting of trauma balanced against elbow hematoma, was placed on Lovenox ppx on admit while Eliquis held. With noted Hematoma expansion 08/13, has not exceeded beyond initial marking of borders, neurovascularly intact, Lovenox and Eliquis BOTH held soft tissue swelling to left arm has not progressed with still moderate ecchymos is, CT of left elbow without marked hematoma on 08/13/25 in setting of persistent AF hx and stability of left arm ecchymosis and engagement in shared decision making with patient and sons decision made to resume Eliquis 5mg BID-->monitor for worsening extension of ecchymosis ##Troponin elevation, A-fib, hypertension with noted 3 second pause at 1149 on 08/15/25 (patient asymptomatic)-->discussion with Dr. Wen to monitor (possible decrease in BB if additional occurrence) NO additional pauses on telemetry Troponin elevated suspect demand with volume contraction and A-fib No chest pain at any point EKG: A-fib with LBBB Troponin repeat downtrending Continue metoprolol, ARB TSH normal ##Rhabdomyolysis given 500ml of NSS in ED Mild, CK664, some volume contraction was laying on the ground for several hours. CK downtrending on repeat. Cautious use of fluids due to history of heart failure on Lasix oral fluids encouraged takes prn Lasix at home for edema every 1-2 days, currently with no lower extremity edema DVT PPx: SCDs, resumption of Eliquis CODE: DNR/DNI Dispo: PT/OT with rec for rehab, d/c tomorrow to [place] Admission and Anticipated Discharge Date Admission Date: August 12, 2025 Supervising Physician Co-Signing Physician Notes The patient was not seen by me. The chart was reviewed. Case discussed with LITO Erazo. Agree with assessment and plan. Subjective Has no complaints this evening. Left elbow/left upper arm/left bicep ecchymosis with no migration from original circling. No pain to left arm or issues with ROM. CMS intact to left hand. Eating/drinking well. Walked with PT this afternoon. Feels he is stable for tomorrow to [place]. Review of Systems Review of Systems: All systems reviewed & are unremarkable except as noted in Subjective Physical Exam Physical Exam: GENERAL APPEARANCE: A&O. Sitting comfortably in bed. NAD. SKIN: Normal color without rashes or lesions. Normal turgor. HEENT: Head AT/NC. Buccal mucosa is moist and pink. NECK: No jugular venous distention. No thyroid enlargement. There is no lymphadenopathy. HEART: RRR without m/g/r. LUNGS: Normal inspiratory effort. CTA without w/r/r. ABDOMEN: No guarding or rigidity. Normoactive BS in all four quadrants. Abdomen soft and NT. MSK: No bony gross/deformities throughout. ROM intact. EXTREMITIES: LUE with medial elbow/left biceps hematoma. Border marking present without overt swelling extending beyond marking. Left radial pulse, left brachial pulse intact with cap refill in left hand fingertips <2seconds. Neuro: CN 2-12 grossly intact. No focal neuro deficits PSYCHIATRIC: Normal affect. Eye contact is good. Speech is normal rate and content. Responses are appropriate. Results & Data Results & Data Vital Signs (Past 12 Hours) Vital Signs Temp Pulse Pulse Resp BP Pulse Ox O2 Del Method 08/15/25 16:15 63 08/15/25 16:11 58 L 20 136/75 96 Room Air 08/15/25 11:52 36.3 C L 74 18 145/73 H 95 Room Air 08/15/25 08:19 36.3 C L 63 20 142/72 H 97 Room Air 08/15/25 08:00 79 Laboratory Results Labs reviewed: CBC, BMP PG Care Time/CCT Total # of Minutes Spent Total Time Spent with Patient: Total time spent is greater than 50% in coordination of care (as documented) at patient's floor/unit and/or counseling patient: Coding Level of Care Code 03363 SUB INP/OBS CARE 2/35MIN Diagnoses Weakness R53.1 HTN (hypertension) I10 Elevated troponin R79.89 Atrial fibrillation I48.91 (HFpEF) heart failure with preserved ejection fraction I50.30 Complex sleep apnea syndrome G47.39
[2025-08-15] MEDS: APIXABAN 5 MG TABLET PO SCH (20:33)
[2025-08-16 03:40] VITALS: RESP 18
[2025-08-16 08:04] VITALS: BP 160/95; TEMP 97.3; O2SAT 97
--- NOTE | 2025-08-16 09:37 | Discharge Summary ---
Discharge Summary Date of Service August 16, 2025 Principal Dx & Hospital Course #1 = Principal Diagnosis (1) Weakness: (2) HTN (hypertension): (3) Elevated troponin: (4) Atrial fibrillation: (5) (HFpEF) heart failure with preserved ejection fraction: (6) Complex sleep apnea syndrome: Plan 80-year-old male who presented with chronic progressive strength loss globally, but most notably in his legs over the last year. 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 He denies pain limitation and notes he is unable to stand due to feeling overall too weak. He has not had any sensory change, no strokes, no back pain, no saddle anesthesia or history of lumbar stenosis. He reports he has not been eating and drinking as well recently, and did not notice a sudden strength loss but felt his legs progressively worsened to where he can no longer stand easily. He was pending to move into [facility] in 2 weeks. He reports he is on the ground for about 3 hours before he was able to pull himself into his recliner where he slept overnight, his ex- came to help him in the morning but due to severe weakness and inability to help get changed brought him back to the ER. He denies any infectious symptoms. He has not had chest pain at any point. Denies dyspnea. Repeated Tertiary Exam 08/13. #Weakness, fall without head strike or loss of consciousness Progressive overall several months No numbness/tingling/No saddle anesthesia/No territorial distribution suggestive of CVA, no back pain or sensory changes/radiculopathy. Mild leukocytosis without left shift suspected demargination, Afebrile, Denies respiratory, abdominal, urinary and other infectious symptoms, UA without signs of infection CM consulted [facility], CTC-spine, chest x-ray, left knee x-ray, left elbow x-ray without acute fracture. Right knee x-ray with possible femoral condyle fracture as otherwise noted No saddle anesthesia. R>L weakness. No bowel/bladder incontinence. +hx lumbar spondylosis and L1 compression wedge fxr. No sensory loss. F/u lumbar eval with spine. No radiculopathy. MRI-L deferred by pt, prefers outpatient followup for chronic symptoms dexamethasone 6mg IV daily Given patient noted improvement in lower extremity strength, will plan on short oral taper of dexamethasone Dexamethasone 4 mg p.o. x 2 days, then... Dexamethasone 2 mg p.o. x 2 days #Possible right medial femoral condyle nondisplaced fracture He is not interested in surgery. D/W ortho on admit. WBAT while in brace and office followup. PT/OT pending. WBAT RLE while in hinged brace. Locked hinge brace applied 08/13/25. Paperwork completed and placed in patients chart. #Left elbow hematoma (improving) Marked with surgical pen and more than 12 hours old, no overt tenderness or issues with ROM to left arm/hand Increased risk of VTE in the setting of trauma balanced against elbow hematoma, was placed on Lovenox ppx on admit while Eliquis held. With noted Hematoma expansion 08/13, has not exceeded beyond initial marking of borders, neurovascularly intact, Lovenox and Eliquis were BOTH held Soft tissue swelling to left arm has not progressed with still moderate ecchymosis CT of left elbow without marked hematoma on 08/13/25 In setting of persistent AF hx and stability of left arm ecchymosis, decision made to resume Eliquis 5mg BID Hgb is stable/up-trending at time of discharge (Hgb 12.9) Monitor for worsening extension of ecchymosis #Troponin elevation, A-fib, hypertension with noted 3 second pause at 1149 on 08/15/25 (patient asymptomatic)-->discussion with Dr. Wen to monitor (possible decrease in BB if additional occurrence) NO additional pauses on telemetry Troponin elevated suspect demand with volume contraction and A-fib No chest pain at any point EKG: A-fib with LBBB Troponin repeat downtrending Continue metoprolol, ARB TSH normal #Rhabdomyolysis (improving) given 500ml of NSS in ED Mild, CK 664, some volume contraction was laying on the ground for several hours CK downtrending to 324 on repeat Cautious use of fluids due to history of heart failure on Lasix Oral fluids encouraged Takes prn Lasix at home for edema every 1-2 days, currently with no lower extremity edema Day of discharge 08/16: Patient is mildly hypertensive at 160/95 at time of discharge; vitals otherwise stable. Mr. Rodriguez reports he is doing well this morning. His sons are currently at bedside preparing him for discharge. Patient reports he has some mild pain/tenderness in his right bicep, which he only feels when he moves it the wrong way. He rates the pain a 1 out of 10 at this time. Sons report that he did well with ambulation yesterday. He has difficulty getting up on his own, however once up he is able to ambulate using the walker, and was able to make it to the end of the hallway. In regard to his left arm hematoma, signs reports that it is "75% better" than 2 days ago and the swelling has significantly decreased. Patient denies any back pain or radicular symptoms at this time. Overall, he expresses a strong desire to get over to [facility] today. ROS: Patient endorses pain in the right bicep with movements. Patient denies fever, headache, chest pain, SOB, pleuritic CP, abdominal pain, N/V/D, changes in urinary/bowel habits, saddle anesthesia, or numbness or tingling going down the legs. Disposition: Discharged to [facility] for rehab + placement Notes For Next Care Provider Patient hospitalized after sustaining a fall. Possible right medial femoral condyle nondisplaced fracture; orthopedics consulted for this patient interested in surgery. Left elbow hematoma improving upon discharge; however, will need continuous monitoring over the next 2 to 3 days. Recommend repeat H&H in the next 2 to 3 days to ensure stability of hemoglobin levels, as the patient was restarted on Eliquis prior to discharge. Patient also sustained a 3-second cardiac pause on 08/15. No recurrence; however, if this does recur, would recommend down-titrating beta-vahid. Admission HPI Per Admitting Provider Elder reports he was in the kitchen getting crackers out of the cupboard, went to pick them up and lost his balance and fell on the floor and could not get up. 'I crawled around for 3 hours' and didn't feel strong enough to get up. Crawled to the living room and pulled himself up into the recliner. Still felt weak this morning and was too weak to get to the bathroom. Called his ex- who could not help him change his pants or get to the bathroom due to his severe weakness, called police/ems and then he was brought to the hospital. Elder felt he could not get up because he was so weak. Denies pain limitation. Has been getting weak for 'some time now'. Endorses weakness in both legs worsening over the last year. Denies lightheadedness or dizziness. Denies syncope/presyncope. Endorses arthritis, but feels he is more weak than pain limited. He feels he scraped up his knees and elbow trying to crawl to the bathroom. Did hit his LEFT elbow against the barstool as he fell. No vision change. No dysarthria. no aphasia. Denies feeling sick. Endorses history of heart failure no recent orthopnea or leg swelling. Denies chest pain/angina/dyspnea Endorses arthritis and 2 knee replacements int he past Endorses HTN Endorses abdominal wall hernia, not painful to him HLD He is on eliquis for Afib. No history of blood clots Did no eliquis this AM. He took eliquis last night. He is scheduled to go to [facility] in 2 weeks. hx R hand carpal tunnel. s/p steroid shot in R hand this past week Medical History: Reviewed Medications: Reviewed Surgical History: Reviewed Family history: Reviewed Allergies: Reviewed Social History: No tobacco use. Drinks ETOH. 2 drinks last night. Normally has 1 martini and 1 glass of wine per night. Has not gone without any alcohol for more than 3 days since the summer. No history of withdrawal. 1.5oz of vodka. One glass of wine, a bottle lasts ~ 3 days. Code Status: DNR/DNI Admission Exam Per Admitting Provider General: A&Ox3. NAD. Cooperative. Spine: No midline or paraspinal tenderness. No occiput tenderness. HEENT: Atraumatic, normocephalic. PERLAA. EOM intact without nystagmus. Vision/hearing grossly intact Pulm: CTAB A&P. -wheezes, -rales, -rhonchi. Symmetrical chest rise. No increased work of breathing. No respiratory distress. Cardiac: irir, soft sm. Rate controlled Radial pulses intact and symmetrical. Abdominal: Nontender, nondistended, soft. BS present. +reducible nontender ventral abdominal hernia. L anterior knee abrasion. b/l knee mild pinkness w/o sharply demarcated erythema. R Knee TTP at medial join line. L elbow hematoma. [id number] R medial elbow hematoma. Marked with surgical pen Sensation to soft touch intact in hands and feet to soft touch. 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 4-/5 hip flexion b/l and fatigues easily R>L. No Discharge Exam General: no acute distress; pleasant affect; sons at bedside; non-toxic appearing; cooperative; SpO2 97% on RA HEENT: normocephalic, atraumatic; PERRLA; vision and hearing intact Neck: supple; trachea midline Skin: warm, dry without signs of tenting; no cyanosis CV: chest wall NTP; irregularly irregular rhythm around 74 bpm; pulses intact and symmetric at radial, DP, and PT Lungs: no acute respiratory distress; symmetrical chest wall expansion; clear breath sounds across all lung palmer w/o adventitious sounds; no wheezing ABD: Soft, NTP; BS present; no rebound/guarding; no distention MSK: no tics or fasciculations; no edema noted in the LEs b/l, nonerythematous RUE: Superficial abrasion appreciated on the right elbow; elbow flexion 90 degrees full active ROM LUE: Left medial arm hematoma appreciated (see photo below); NTP; 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; radial ulnar pulses intact LLE: Left anterior knee abrasion appreciated; patient demonstrates ability to flex knee 90 degrees with full active ROM RLE: Brace in place; patient demonstrates ability to wiggle toes bilaterally; 5/5 plantar/dorsiflexion in the ankles bilateral Neuro: A&Ox3; normal mood and affect; fluent speech; patient reports sensation is intact and symmetric in the upper and lower extremities bilaterally assessed via light touch Discharge Plan Discharge Items Patient Disposition: Transfer Long-Term Fac Reason For Visit: WEAKNESS, FALL Discharge Diagnosis: Fall, left elbow hematoma, generalized weakness Condition on Discharge: Fair Activity: As commented below Activity Comment: Gradually increase activity per PT/OT recommendations Weightbearing Comment: Right lower extremity, weightbearing as tolerated Non-emergency contact: Primary Care Provider Call non-emergency contact if: you have any medication questions, your symptoms worsen, your pain is not controlled and your pain is worsening Follow-up/Referrals: Megan Grey DO [Primary Care Provider] - Diet: Regular Addtl Attending Provider Instructions: You were hospitalized at [facility] from 08/12 to 08/16 after sustaining a fall. On arrival, imaging of your right leg revealed a possible right femoral condyle fracture. A hinge knee brace was applied and your case was discussed with orthopedics; however, you reported that you were not interested in surgery, and so a formal consult was deferred. Additionally, you developed a hematoma along the side of your left elbow. Your Eliquis was held while you are in the hospital, and the swelling in your left arm gradually subsided. Given your hemoglobin levels have remained stable and are currently uptrending at time of discharge, we feel that you are safe to resume Eliquis prior to discharge. Prior to discharge, you still exhibit significant weakness in your legs. While you have improved in the hospital, we feel that you require additional rehab, which can be obtained at [facility]. You also reported increase strength in the lower extremities while receiving IV dexamethasone in the hospital. Will plan to discharge you on the following taper: New prescription on discharge: Dexamethasone taper Please take dexamethasone 4 mg (2 tablets) x 2 days, then... Please take dexamethasone 2 mg (1 tablet) x 2 days Please plan to follow-up with your PCP in the next 7 to 10 days for a transitional care appointment. If you develop any new or worsening symptoms, such as fever, chills, chest pain, difficulty breathing, inability to walk, intractable back pain, or increased swelling/redness around your left arm hematoma, please return to the emergency department immediately. It was a pleasure taking care of you. Please reach out with any questions or concerns. Sincerely, The Hospital medicine team at [facility] Pending Studies at Discharge: No Stand-Alone Forms: My [facility] Skilled Items Patient informed of condition?: Yes DNR: Yes Discharge Level of Care: Skilled Communicable Disease: No Discharge Prognosis: Stable Lines: None Urinary Catheter: No Medications and DC Order Prescriptions: New polyethylene glycol 3350 [Miralax] 17 gram Powder In Packet 17 g PO DAILY PRN (Reason: constipation) Qty: 14 0RF sertraline 50 mg Tablet 25 mg PO QAM Qty: 30 0RF dexamethasone 2 mg tablet See Rx Instructions .ROUTE .COMPLEX Qty: 6 0RF Rx Instructions: Take 4 mg daily (2 tablets) x 2 days, then... Take 2 mg daily (1 tablet) x 2 days Continued simvastatin 20 mg tablet 20 mg PO DAILY Qty: 90 3RF metoprolol succinate 25 mg tablet extended release 24 hr 37.5 mg PO DAILY Qty: 135 3RF olmesartan 20 mg tablet 20 mg PO DAILY Qty: 90 3RF potassium chloride 10 mEq tablet extended release 10 meq PO DAILY PRN (Reason: Take with Lasix) Qty: 90 3RF Rx Instructions: ONLY take at the same time as furosemide (AKA "Lasix") mecobalamin (vitamin B12) 1,000 mcg tablet,disintegrating 1,000 mcg sublingual HS Rx Instructions: place tablet under tongue and allow to dissolve for at least30 secs before swallowing doxazosin 4 mg tablet 6 mg PO DAILY lansoprazole 30 mg capsule,delayed release(DR/EC) 30 mg PO Q OTHER DAY Dose Instruction: TAKE 1 CAPSULE EVERY OTHER DAY multivitamin Tablet 1 tab PO DAILY allopurinol 300 mg tablet 300 mg PO DAILY Eliquis 5 mg tablet 5 mg PO BID furosemide 40 mg tablet 40 mg PO Q2D PRN (Reason: Lower extremity edema) Discharge Orders: Discharge Order (Routine); Ordered 08/16/25 Ordered By: Smith Prasad Admission Data Admit Date/Time: 08/12/25 10:51 Attending Provider: Sukumar Fallon Admit Provider: Willie Call Primary Care Provider: Megan Grey Other Providers: Willie Call Other Interventions: Discharge Summary Assessment (RN) Last Done: 08/16/25 10:46 Hospital Stay Data Consultations 08/12/25 09:36 ED Decision to Admit Stat Diagnostic Imagining Performed 08/12/25 06:38 CT cervical spine wo con Stat CT head/brain wo con Stat 08/13/25 18:13 CT elbow LT wo con Routine Discharge Instructions Given to Patient (Per Discharging Provider) You were hospitalized at [facility] from 08/12 to 08/16 after sustaining a fall. On arrival, imaging of your right leg revealed a possible right femoral condyle fracture. A hinge knee brace was applied and your case was discussed with orthopedics; however, you reported that you were not interested in surgery, and so a formal consult was deferred. Additionally, you developed a hematoma along the side of your left elbow. Your Eliquis was held while you are in the hospital, and the swelling in your left arm gradually subsided. Given your hemoglobin levels have remained stable and are currently uptrending at time of discharge, we feel that you are safe to resume Eliquis prior to discharge. Prior to discharge, you still exhibit significant weakness in your legs. While you have improved in the hospital, we feel that you require additional rehab, which can be obtained at [facility]. You also reported increase strength in the lower extremities while receiving IV dexamethasone in the hospital. Will plan to discharge you on the following taper: New prescription on discharge: Dexamethasone taper Please take dexamethasone 4 mg (2 tablets) x 2 days, then... Please take dexamethasone 2 mg (1 tablet) x 2 days Please plan to follow-up with your PCP in the next 7 to 10 days for a transitional care appointment. If you develop any new or worsening symptoms, such as fever, chills, chest pain, difficulty breathing, inability to walk, intractable back pain, or increased swelling/redness around your left arm hematoma, please return to the emergency department immediately. It was a pleasure taking care of you. Please reach out with any questions or concerns. Sincerely, The Hospital medicine team at [facility] Supervising Physician Co-Signing Physician Notes I did not see or examine the patient. I verified all herrmann points and agree with Smith Prasad PA-C with the following exceptions and/or additions: None Total Time Total Time Spent Total Time Spent (In Minutes): 40 Coding [place] [address] INP/OBS DISCH >30 MIN Patient Type Established Medical Decision Making Moderate Complexity Diagnoses Weakness R53.1 HTN (hypertension) I10 Elevated troponin R79.89 Atrial fibrillation I48.91 (HFpEF) heart failure with preserved ejection fraction I50.30 Complex sleep apnea syndrome G47.39
[2025-08-16 10:47] VITALS: PULSE 74
== END 2025-08-16 11:17 ==
LOC: ED 06:25 → EDINP 10:51 → SUATTDRO 10:51 → INTOOBSV 10:51 → 2S 11:06